=== PATIENT | male | born 1940 | race Caucasian/White ===

== ENCOUNTER 2018-07-26 10:30 | Inpatient (IN) | payer OTHER ==
--- OUTSIDE RECORDS SUMMARY | 2018-07-26 11:10 | XMS REPORT ---
:1940 [facility] Address [address] [place] [address] Dr. Armando[address] [place] [id number] Care Team Providers Name Role Phone DR JORGE LUIS MEHTA Unavailable Unavailable Problems This patient has no known problems. Allergies, Adverse Reactions, Alerts This patient has no known allergies or adverse reactions. Medications This patient has no known medications. Encounters Start End Encounter Admission Attending Care Care Encounter Date/Time Date/Time Type Type Clinicians Facility Department ID 2017-07-14 2017-07-14 Outpatient SERVANDO [facility]ARD [facility] [place] [id number] 10:47:00 10:47:00 JORGE LUIS
[2018-07-26 12:20] LABS: Absolute Lymphocytes (CBC) 0.9 K/uL (0.7-4.9); Absolute Monocytes 0.7 K/uL (0.1-1.3); Absolute Neutrophil 8.9 K/uL (1.8-8.0); Basophils % 0.4 % (0-1.3); Eosinophils % 2.4 % (0-4.4); Hematocrit 38.2 % (39.6-49.0); Lymphocytes % 8.2 % (15.3-44.8); MCH 32.2 pg (27.0-35.0); MCV 95.9 fL (80-100); MPV 8.2 fL (7.6-11.3); Monocytes % 6.7 % (3.3-12.3); RBC Red Blood Cell Count 3.98 M/uL (4.33-5.43)
[2018-07-26] MEDS: METRONIDAZOLE 500mg IVPB 500 MG/100 ML BAG IV SCH ×2 (12:35→21:20)
[2018-07-26] MEDS: CIPROFLOXACIN 400mg IV 400 MG/200 ML BAG IV SCH ×2 (12:35→21:21)
[2018-07-26] MEDS: NACHLORIDE 0.45% 1,000 ML IV SCH (12:36)
[2018-07-26 12:38] LABS: Albumin 3.6 g/dL (3.4-5.0); Bilirubin Total 0.8 mg/dL (0.2-1.0); Potassium 4.5 mmol/L (3.5-5.1); Protein, Total 6.7 g/dL (6.4-8.2)
--- NOTE | 2018-07-26 13:59 | RAD REPORT ---
EXAM DESCRIPTION: CT - Abdomen Pelvis Wo Contrast - 07/26/2018 1:48 pm CLINICAL HISTORY: Abdominal pain. abd pain, dehydration COMPARISON: No comparisons TECHNIQUE: CT imaging of the abdomen and pelvis was performed without contrast. Solid organ and vasc ular assessment is limited due to lack of IV contrast. All CT scans are performed using dose optimization technique as appropriate and may include automated exposure control or mA/KV adjustment according to patient size. FINDINGS: The lower lung cash are clear.Pacer wires are present. The liver, spleen, pancreas, adrenal glands and kidneys are within normal limits for a limited non-co ntrast examination.Cholelithiasis. No bowel obstruction, free air, free fluid or abscess. Sigmoid diverticulosis coli is present with mi ld peridiverticular inflammatory changes suspected. The remainder of the colon is decompressed. Moderate lumbar degenerative changes. IMPRESSION: Mild acute sigmoid diverticulitis is present without evidence of abscess. Cholelithiasis. A limited non-contrast examination was performed as detailed.
[2018-07-26] MEDS ORDERED: ALBUTEROL 2.5 MG/3 ML NEB SOL ONE (16:16)
[2018-07-26] MEDS ORDERED: NITROGLYCERIN 0.4 MG SL PRN (16:50)
[2018-07-26] MEDS ORDERED: NITROGLYCERIN 0.4 MG/TAB SL PRN (17:05)
[2018-07-26] MEDS: PANTOPRAZOLE 40MG TABLET PO SCH (17:43)
[2018-07-26] MEDS: ALLOPURINOL 100 MG TAB PO SCH (17:44)
[2018-07-26] MEDS: FUROSEMIDE 40 MG TABLET PO SCH (17:44)
[2018-07-26] MEDS: ATORVASTATIN 80 MG TAB PO SCH (17:46)
[2018-07-26 18:22] LABS: Urine Appearance CLEAR; Urine Bilirubin NEGATIVE (NEG); Urine Blood NEGATIVE (NEG); Urine Color YELLOW; Urine Glucose NEGATIVE (NEG); Urine Protein NEGATIVE (NEG); Urine Specific Gravity 1.015 (1.005-1.030); Urine Urobilinogen 0.2 mg/dL (0.2-1.0); Urine pH 5.5 (5.0-7.0)
[2018-07-26 18:31] LABS: Urine Microscopic Reflex NO UMIC
[2018-07-26] MEDS ORDERED: TERAZOSIN HCL 10 MG PO SCH (21:00)
[2018-07-26] MEDS: IPRATROPIUM BROM 0.5MG/2.5ML NEB PRN (21:02)
[2018-07-26] MEDS: ALBUTEROL 2.5 MG/3 ML NEB SOL NEB PRN (21:02)
[2018-07-26] MEDS: TERAZOSIN HCL 5 MG CAP PO SCH (21:32)
[2018-07-27] MEDS: ALBUTEROL 2.5 MG/3 ML NEB SOL NEB PRN ×3 (03:21→20:14)
[2018-07-27] MEDS: IPRATROPIUM BROM 0.5MG/2.5ML NEB PRN ×3 (03:21→20:14)
[2018-07-27] MEDS ORDERED: ALBUTEROL 2.5 MG/3 ML NEB SOL NEB SCH ×2 (08:00→09:00)
[2018-07-27] MEDS: METRONIDAZOLE 500mg IVPB 500 MG/100 ML BAG IV SCH ×2 (08:48→20:56)
[2018-07-27] MEDS: ATORVASTATIN 80 MG TAB PO SCH (08:49)
[2018-07-27] MEDS: METOPROLOL XL 50 MG TAB PO SCH (08:49)
[2018-07-27] MEDS: CIPROFLOXACIN 400mg IV 400 MG/200 ML BAG IV SCH ×2 (08:49→20:57)
[2018-07-27] MEDS: FUROSEMIDE 40 MG TABLET PO SCH (08:50)
[2018-07-27] MEDS: PANTOPRAZOLE 40MG TABLET PO SCH (08:50)
[2018-07-27] MEDS: ALLOPURINOL 100 MG TAB PO SCH (08:52)
[2018-07-27] MEDS ORDERED: HOME MED 1 EA UNK (Omeprazole [Omeprazole] 20 MG) PO SCH (09:00)
[2018-07-27] MEDS ORDERED: HOME MED 1 EA UNK (Fluticasone/Vilanterol [Breo Ellipta 100-25 Mcg Inh] 1 EACH) IH SCH (09:00)
[2018-07-27] MEDS ORDERED: VITAMIN D 1000 UNIT TAB PO SCH (09:00)
[2018-07-27 14:38] VITALS: BMI 29.5
[2018-07-27] MEDS: NACHLORIDE 0.45% 1,000 ML IV SCH (17:08)
[2018-07-27] MEDS: TERAZOSIN HCL 5 MG CAP PO SCH (20:57)
[2018-07-27 22:46] VITALS: O2SAT 97
--- NOTE | 2018-07-27 23:12 | HP ---
Date of Admission: 07/27/2018 Chief Complaint: Lower abdominal pain, diarrhea. History Of Present Illness: An 78-year-old male was brought to the office with a 4-5-day history of lower abdominal pain and diarrhea. The patient was found to have tenderness in the left lower quadra nt with a possibility of colitis or diverticulitis. The patient was admitted for observation. Subse quently, CAT scan showed evidence of diverticulitis. The patient is started on IV antibiotics. Past Medical History: Extensive, includes history of congestive heart failure, COPD, permanent pacem vineet, coronary artery disease, and BPH. Past Surgical History: Positive for carotid bypass surgery, appendectomy, tonsillectomy, left elbow surgery, colonoscopy, and removal of polyps. Family History: Positive for lung disease, aortic aneurysm. Review of Systems: The patient denies any history of vomiting. Physical Examination: General: Revealed an 78-year-old male with audible wheezing. Vital Signs: Blood pressure in the office was 90, systolic. HEENT: Otherwise negative. Neck: Supple. JVD negative. Chest: Bilateral wheezes. Heart: Irregularity noted. Abdomen: Tender left lower quadrant. No palpable mass. Bowel sounds present. Extremities: No edema. Laboratory Data: White count, normal. Hemoglobin 12.8. Chem profile; BUN 40, creatinine 2.2. CAT scan of the abdomen, diverticulitis, sigmoid. Assessment: 1.Acute diverticulitis, sigmoid colon, with diarrhea. 2.Chronic obstructive pulmonary disease. 3.Known coronary artery disease. 4.Known congestive heart failure. 5.Permanent pacemaker. 6.Status post coronary bypass surgery. Plan: IV Cipro, IV Flagyl. Repeat chemistry profile. RRK/MODL Voice ID: [id number]
[2018-07-28] MEDS: ALBUTEROL 2.5 MG/3 ML NEB SOL NEB PRN ×2 (01:44→08:05)
[2018-07-28] MEDS: IPRATROPIUM BROM 0.5MG/2.5ML NEB PRN (08:05)
[2018-07-28] MEDS: ATORVASTATIN 80 MG TAB PO SCH (08:38)
[2018-07-28] MEDS: METOPROLOL XL 50 MG TAB PO SCH (08:38)
[2018-07-28] MEDS: ALLOPURINOL 100 MG TAB PO SCH (08:38)
[2018-07-28] MEDS: FUROSEMIDE 40 MG TABLET PO SCH (08:39)
[2018-07-28] MEDS: CIPROFLOXACIN 400mg IV 400 MG/200 ML BAG IV SCH (08:40)
[2018-07-28] MEDS: METRONIDAZOLE 500mg IVPB 500 MG/100 ML BAG IV SCH (08:40)
[2018-07-28] MEDS: PANTOPRAZOLE 40MG TABLET PO SCH (08:40)
[2018-07-28 08:42] VITALS: BP 107/55
[2018-07-28 09:07] VITALS: TEMP 97.6
== END 2018-07-28 10:16 | disposition home or self-care (01) | DRG 392 ==
LOC: 2ND 11:07 → OBSVTOIN 07-27 10:22
PROVIDERS: ADMIT Internal Medicine; ATTEND Internal Medicine
DX: K57.32 Diverticulitis of large intestine without perforation or abscess without bleeding (principal); I25.810 Atherosclerosis of coronary artery bypass graft(s) without angina pectoris; J44.9 Chronic obstructive pulmonary disease, unspecified; Z95.0 Presence of cardiac pacemaker; N40.0 Benign prostatic hyperplasia without lower urinary tract symptoms; R19.7 Diarrhea, unspecified; I50.9 Heart failure, unspecified; Z95.1 Presence of aortocoronary bypass graft
CPT/HCPCS: 36415; 74176; 80053; 81003; 85025; 87045; 87046; 87493; 94640; G0378; J0744; Q9967

== ENCOUNTER 2019-01-21 17:58 | Observation (INO) | payer OTHER ==
--- OUTSIDE RECORDS SUMMARY | 2019-01-21 18:00 | XMS REPORT ---
:1940 [facility] Address [address] [place] [address] [address] Care Team Providers Name Role Phone DR JORGE LUIS MEHTA Unavailable Unavailable Problems This patient has no known problems. Allergies, Adverse Reactions, Alerts This patient has no known allergies or adverse reactions. Medications This patient has no known medications. Encounters Start End Encounter Admission Attending Care Care Encounter Date/Time Date/Time Type Type Clinicians Facility Department ID 2017-07-14 2017-07-14 Outpatient [facility]ANDO [facility] [place] [id number] 10:47:00 10:47:00 JORGE LUIS
[2019-01-21 18:34] LABS: Absolute Lymphocytes (CBC) 1.3 K/uL (0.7-4.9); Absolute Monocytes 0.5 K/uL (0.1-1.3); Absolute Neutrophil 5.5 K/uL (1.8-8.0); Basophils % 0.6 % (0-1.3); Eosinophils % 3.6 % (0-4.4); Hematocrit 37.9 % (39.6-49.0); Lymphocytes % 17.1 % (15.3-44.8); MPV 8.4 fL (7.6-11.3); Monocytes % 6.2 % (3.3-12.3); RBC Red Blood Cell Count 3.96 M/uL (4.33-5.43)
--- NOTE | 2019-01-21 18:47 | RAD REPORT ---
EXAM DESCRIPTION: Evans Single View01/21/2019 6:26 pm CLINICAL HISTORY: Chest pain COMPARISON: 2016 FINDINGS: The lungs appear clear of acute infiltrate. The heart is mildly enlarged. Pacemaker leads are in place. Postsurgical changes involve the chest IMPRESSION: No acute abnormalities displayed
[2019-01-21 18:48] LABS: Albumin 3.5 g/dL (3.4-5.0); Bilirubin Direct 0.1 mg/dL (0-0.2); Bilirubin Total 0.4 mg/dL (0.2-1.0); Magnesium 2.2 mg/dL (1.8-2.4); Potassium 3.8 mmol/L (3.5-5.1); Protein, Total 6.2 g/dL (6.4-8.2); Troponin (Emerg Dept Use Only) 0.02 ng/mL (0.0-0.045)
--- NOTE | 2019-01-21 18:56 | RAD REPORT ---
EXAM DESCRIPTION: CT - Head Brain Wo Cont - 01/21/2019 6:29 pm CLINICAL HISTORY: Syncope COMPARISON: 2013 TECHNIQUE: Computed axial tomography of the head was obtained. IV contrast was not requested. All CT scans are performed using dose optimization technique as appropriate and may include automated exposure control or mA/KV adjustment according to patient size. FINDINGS: An intracranial bleed is not seen . The ventricles are normal in caliber. No extra-axial fluid collection is noted. Mild low-density areas within periventricular, deep and sub cortical white matter likely represent ischemic changes secondary to small vessel disease Fluid within the maxillary sinuses IMPRESSION: No acute intracranial abnormality is seen. If patient's symptoms persist MRI of the bra in would be recommended. Fluid within the maxillary sinuses may indicate acute sinusitis
[2019-01-21] MEDS ORDERED: NA CHLORIDE 0.9% 1,000 ML ONE (19:24)
[2019-01-21] MEDS ORDERED: HYDROCODONE/CHLORPHEN 5 ML/OSYR ONE (19:31)
[2019-01-21] MEDS ORDERED: ALBUTEROL 2.5 MG/3 ML NEB SOL ONE ×2 (22:05→23:19)
--- NOTE | 2019-01-21 23:03 | EDPHYS ---
Physician Documentation [facility] Name: Jair Jasso Age: 78 yrs Sex: Male : 1940 Arrival Date: 01/21/2019 Time: 18:03 Bed 2 Private MD: ED Physician Julian Wasserman HPI: 01/21 23:15 This 78 yrs old Male presents to ER via EMS with complaints of syncope. jr8 23:15 The patient has experienced syncope, became unresponsive, collapsed. Onset: The jr8 symptoms/episode began/occurred acutely, today. Duration: This was a single episode, that lasted an unknown period of time. Context: occurred at home, occurred while the patient was standing, Just prior to the episode the patient experienced no apparent symptoms. Associated injury: Head/face: abrasion. Associated signs and symptoms: The patient has no apparent associated signs or symptoms. Current symptoms: Currently, the patient is not experiencing any symptoms, the patient feels back to baseline, no decreased level of consciousness, no confusion, no dysphasia, no headache, no paralysis, no visual changes. It is unknown whether or not the patient has had similar symptoms in the past. The patient has not recently seen a physician. EMS stated that patient was hypotensive on scene. Patient currently hypotensive upon arrival. Stated that he has had problems with neurocardiogenic syncope in past . Historical: - Allergies: 18:15 PENICILLINS; aj1 - Home Meds: 18:15 Allopurinol Oral [Active]; Lasix Oral [Active]; losartan oral oral [Active]; aj1 - PMHx: 18:15 AAA; CAD; CHF; COPD; High Cholesterol; Myocardial infarction; pacemaker; aj1 - PSHx: 18:15 AAA repair; triple bypass; aj1 - Immunization history:: Flu vaccine is up to date. - Social history:: Smoking status: Patient/guardian denies using tobacco. - Ebola Screening: : Patient denies travel to an Ebola-affected area in the 21 days before illness onset. ROS: 23:15 Eyes: Negative for injury, pain, redness, and discharge, ENT: Negative for injury, jr8 pain, and discharge, Neck: Negative for injury, pain, and swelling, Cardiovascular: Negative for chest pain, palpitations, and edema, Respiratory: Negative for shortness of breath, cough, wheezing, and pleuritic chest pain, Abdomen/GI: Negative for abdominal pain, nausea, vomiting, diarrhea, and constipation, Back: Negative for injury and pain, MS/Extremity: Negative for injury and deformity, Skin: Negative for injury, rash, and discoloration. 23:15 Neuro: Positive for loss of consciousness, syncope. Exam: 23:15 Eyes: Pupils equal round and reactive to light, extra-ocular motions intact. Lids and jr8 lashes normal. Conjunctiva and sclera are non-icteric and not injected. Cornea within normal limits. Periorbital areas with no swelling, redness, or edema. ENT: Nares patent. No nasal discharge, no septal abnormalities noted. Tympanic membranes are normal and external auditory canals are clear. Oropharynx with no redness, swelling, or masses, exudates, or evidence of obstruction, uvula midline. Mucous membranes moist. Neck: Trachea midline, no thyromegaly or masses palpated, and no cervical lymphadenopathy. Supple, full range of motion without nuchal rigidity, or vertebral point tenderness. No Meningismus. Cardiovascular: Regular rate and rhythm with a normal S1 and S2. No gallops, murmurs, or rubs. Normal PMI, no JVD. No pulse deficits. Respiratory: Lungs have equal breath sounds bilaterally, clear to auscultation and percussion. No rales, rhonchi or wheezes noted. No increased work of breathing, no retractions or nasal flaring. Abdomen/GI: Soft, non-tender, with normal bowel sounds. No distension or tympany. No guarding or rebound. No evidence of tenderness throughout. Back: No spinal tenderness. No costovertebral tenderness. Full range of motion. Skin: Warm, dry with normal turgor. Normal color with no rashes, no lesions, and no evidence of cellulitis. MS/ Extremity: Pulses equal, no cyanosis. Neurovascular intact. Full, normal range of motion. Neuro: Awake and alert, GCS 15, oriented to person, place, time, and situation. Cranial nerves II-XII grossly intact. Motor strength 5/5 in all extremities. Sensory grossly intact. Vital Signs: 18:15 BP 108 / 56; Pulse 65; Resp 16; Temp 97.4; Pulse Ox 98% on R/A; Weight 89.81 kg (R); aj1 Height 5 ft. 8 in. (172.72 cm) (R); Pain 0/10; 18:51 BP 104 / 58 Supine; Pulse 60; jb1 18:51 BP 98 / 51 Sitting; Pulse 73; jb1 18:51 BP 87 / 55 Standing; Pulse 110; jb1 19:40 BP 110 / 54; Pulse 90; Resp 16; Pulse Ox 97% on 2 lpm NC; Pain 0/10; tl1 20:59 BP 85 / 36; Pulse 68; Resp 16; Pulse Ox 97% on 2 lpm NC; Pain 0/10; tl1 21:50 BP 91 / 55; Pulse 73; Resp 19; Pulse Ox 97% on 2 lpm NC; Pain 0/10; tl1 22:03 BP 110 / 61; Pulse 71; Resp 19; Temp 97.6; Pulse Ox 100% on Nebulizer Mask; Pain 0/10; tl1 22:28 BP 95 / 58 Standing; Pulse 116; Resp 17; Pulse Ox 94% on R/A; tl1 23:50 BP 118 / 70; Pulse 72; Resp 20; Temp 97.5; Pulse Ox 96% on R/A; Pain 0/10; tl1 18:15 Body Mass Index 30.11 (89.81 kg, 172.72 cm) aj1 MDM: 18:16 Patient medically screened. 8 22:53 Data reviewed: vital signs, nurses notes, lab test result(s), EKG, radiologic studies, jr8 CT scan, plain films. Data interpreted: Pulse oximetry: on room air is 94 %. Interpretation: normal. Counseling: I had a detailed discussion with the patient and/or guardian regarding: the historical points, exam findings, and any diagnostic results supporting the discharge/admit diagnosis, lab results, radiology results, the need for further work-up and treatment in the hospital. Physician consultation: Faisal Johnson MD was called at 22:53, was contacted at 22:53, regarding admission, to the telemetry unit. consult, patient's condition, and will see patient. 23:15 ED course: Patient given 1 liter bolus of fluid. Patient still tilting after bolus will jr8 admit to Dr[address] Johnson with [facility] consult . 01/21 18:16 Order name: Basic Metabolic Panel 8 01/21 18:16 Order name: CBC with Diff jr8 01/21 18:16 Order name: LFT's [facility] 01/21 18:16 Order name: Magnesium [facility] 01/21 18:16 Order name: NT PRO-BNP; Complete Time: 19:15 8 01/21 18:16 Order name: PT-INR; Complete Time: 19:15 8 01/21 18:16 Order name: Troponin (emerg Dept Use Only); Complete Time: 19:15 8 01/21 18:16 Order name: XRAY Chest (1 view); Complete Time: 19:15 8 01/21 18:17 Order name: CT Head Brain wo Cont; Complete Time: 19:15 jr8 01/21 18:17 Order name: Basic Metabolic Panel; Complete Time: 19:15 EDMS 01/21 18:17 Order name: CBC with Automated Diff; Complete Time: 18:37 EDMS 01/21 18:17 Order name: Liver (Hepatic) Function; Complete Time: 19:15 EDMS 01/21 18:17 Order name: Magnesium; Complete Time: 19:15 EDMS 01/21 18:16 Order name: EKG; Complete Time: 18:18 01/21 18:16 Order name: Cardiac monitoring; Complete Time: 18:24 [facility] 01/21 18:16 Order name: EKG - Nurse/Tech; Complete Time: 18:24 [facility] 01/21 18:16 Order name: IV Saline Lock; Complete Time: 18:24 [facility] 01/21 18:16 Order name: Labs collected and sent; Complete Time: 18:24 [facility] 01/21 18:16 Order name: O2 Per Protocol; Complete Time: 18:25 [facility] 01/21 18:16 Order name: O2 Sat Monitoring; Complete Time: 18:25 [facility] 01/21 23:28 Order name: CONS Physician Consult EDMS Administered Medications: 19:17 Drug: NS 0.9% 1000 ml Route: IV; Rate: 1000 ml; Site: right antecubital; tl1 21:49 Follow up: IV Status: Completed infusion tl1 19:21 Drug: Tussionex Pennkinetic ER 5 ml Route: PO; tl1 21:55 Follow up: Response: No adverse reaction; Marked relief of symptoms; Other; cough is tl1 reduced 21:55 Drug: Albuterol 1.25 mg Route: Inhalation; tl1 23:10 Drug: guaiFENesin Liquid 5 ml Route: PO; tl1 01/22 00:28 Follow up: Response: No adverse reaction; Marked relief of symptoms tl1 01/21 23:10 Drug: Albuterol 1.25 mg Route: Inhalation; tl1 01/22 00:28 Follow up: Response: No adverse reaction; Marked relief of symptoms tl1 Disposition: 01/21/19 23:02 Hospitalization ordered by Faisal Johnson for Observation. Preliminary diagnosis is Orthostatic hypotension. - Bed requested for Telemetry/MedSurg (observation). - Status is Observation. tl1 - Condition is Stable. - Problem is new. - Symptoms have improved. UTI on Admission? No Addendum: 01/24/2019 08:25 Co-signature as Attending Physician, Julian Wasserman MD I agree with the assessment and k dr plan of care. Signatures: Dispatcher [employer] EDMS [place] Rehman RN RN aj1 Amy Judge RN ARCHANA Julian Wasserman MD MD [facility] Cordell Segal PA PA jr8 Viji Fernandez RN RN tl1 Corrections: (The following items were deleted from the chart) 01/21 23:31 23:02 Hospitalization Ordered by Faisal Johnson MD for Observation. Preliminary diagnosis mw is Orthostatic hypotension. Bed requested for Telemetry/MedSurg (observation). Status is Observation. Condition is Stable. Problem is new. Symptoms have improved. UTI on Admission? No. jr8 01/22 00:29 01/21 23:31 01/21/2019 23:02 Hospitalization Ordered by Faisal Johnson MD for Observation. tl1 Preliminary diagnosis is Orthostatic hypotension. Bed requested for Telemetry/MedSurg (observation). Status is Observation. Condition is Stable. Problem is new. Symptoms have improved. UTI on Admission? No. mw
--- NOTE | 2019-01-21 23:03 | ER ---
Nurse's Notes [facility] Name: Jair Jasso Age: 78 yrs Sex: Male : 1940 Arrival Date: 01/21/2019 Time: 18:03 Bed 2 Private MD: Diagnosis: Orthostatic hypotension Presentation: 01/21 18:11 Presenting complaint: EMS states: He was sitting on the couch after having a couple aj1 martinis and had some dizziness so he got up to walk to his room and he had a syncopal episode. Patient denies SOB, CP or palpitations prior to syncopal episode. BP on EMS arrival was 71/40. Patient has a laceration to the left eyebrow and a skin tear to the left FA that he sustained in the fall. Patient denies pain at this time. Transition of care: patient was not received from another setting of care. Onset of symptoms was January 21, 2019. Risk Assessment: Do you want to hurt yourself or someone else? Patient reports no desire to harm self or others. Initial Sepsis Screen: Does the patient meet any 2 criteria? No. Patient's initial sepsis screen is negative. Does the patient have a suspected source of infection? No. Patient's initial sepsis screen is negative. Care prior to arrival: None. 18:11 Method Of Arrival: EMS: [facility] aj1 18:11 Acuity: SILVIA 2 aj1 Triage Assessment: 18:15 General: Appears in no apparent distress. comfortable, Behavior is calm, cooperative, aj1 appropriate for age. Pain: Denies pain. Historical: - Allergies: 18:15 PENICILLINS; aj1 - Home Meds: 18:15 Allopurinol Oral [Active]; Lasix Oral [Active]; losartan oral oral [Active]; aj1 - PMHx: 18:15 AAA; CAD; CHF; COPD; High Cholesterol; Myocardial infarction; pacemaker; aj1 - PSHx: 18:15 AAA repair; triple bypass; aj1 - Immunization history:: Flu vaccine is up to date. - Social history:: Smoking status: Patient/guardian denies using tobacco. - Ebola Screening: : Patient denies travel to an Ebola-affected area in the 21 days before illness onset. Screenin:20 Abuse screen: Denies threats or abuse. Denies injuries from another. Nutritional aj1 screening: No deficits noted. Tuberculosis screening: No symptoms or risk factors identified. 01/22 00:24 Fall Risk IV access (20 points). tl1 Assessment: 01/21 18:20 General: Appears in no apparent distress. uncomfortable, ill, Behavior is calm, aj1 cooperative, appropriate for age. Pain: Denies pain. Neuro: Level of Consciousness is awake, alert, obeys commands, Oriented to person, place, time, situation, Moves all extremities. Speech is normal, Facial symmetry appears normal. Cardiovascular: Denies chest pain, palpitations, shortness of breath, Heart tones S1 S2 present Patient's skin is warm and dry. Rhythm is paced. Respiratory: Airway is patent Respiratory effort is even, unlabored, Respiratory pattern is regular, agonal Breath sounds are clear bilaterally. GI: No signs and/or symptoms were reported involving the gastrointestinal system. : No signs and/or symptoms were reported regarding the genitourinary system. EENT: No signs and/or symptoms were reported regarding the EENT system. Derm: No signs and/or symptoms reported regarding the dermatologic system. Skin is pink, warm \T\ dry. normal. Musculoskeletal: No signs and/or symptoms reported regarding the musculoskeletal system. Circulation, motion, and sensation intact. 01/22 00:28 Reassessment: Patient and/or family updated on plan of care and expected duration. Pain tl1 level reassessed. Patient is alert, oriented x 3, equal unlabored respirations, skin warm/dry/pink. Patient denies pain at this time. Patient states feeling better. Patient states symptoms have improved. Vital Signs: 01/21 18:15 BP 108 / 56; Pulse 65; Resp 16; Temp 97.4; Pulse Ox 98% on R/A; Weight 89.81 kg (R); aj1 Height 5 ft. 8 in. (172.72 cm) (R); Pain 0/10; 18:51 BP 104 / 58 Supine; Pulse 60; jb1 18:51 BP 98 / 51 Sitting; Pulse 73; jb1 18:51 BP 87 / 55 Standing; Pulse 110; jb1 19:40 BP 110 / 54; Pulse 90; Resp 16; Pulse Ox 97% on 2 lpm NC; Pain 0/10; tl1 20:59 BP 85 / 36; Pulse 68; Resp 16; Pulse Ox 97% on 2 lpm NC; Pain 0/10; tl1 21:50 BP 91 / 55; Pulse 73; Resp 19; Pulse Ox 97% on 2 lpm NC; Pain 0/10; tl1 22:03 BP 110 / 61; Pulse 71; Resp 19; Temp 97.6; Pulse Ox 100% on Nebulizer Mask; Pain 0/10; tl1 22:28 BP 95 / 58 Standing; Pulse 116; Resp 17; Pulse Ox 94% on R/A; tl1 23:50 BP 118 / 70; Pulse 72; Resp 20; Temp 97.5; Pulse Ox 96% on R/A; Pain 0/10; tl1 18:15 Body Mass Index 30.11 (89.81 kg, 172.72 cm) aj1 ED Course: 18:03 Patient arrived in ED. iw 18:11 [place] Rehman, RN is Primary Nurse. aj1 18:13 Triage completed. aj1 18:15 Arm band placed on. aj1 18:16 Cordell Segal PA is PHCP. jr8 18:16 Julian Wasserman MD is Attending Physician. jr8 18:20 Patient has correct armband on for positive identification. Bed in low position. Call aj1 light in reach. Side rails up X 1. laboratory monitor on. Pulse ox on. NIBP on. 18:20 No provider procedures requiring assistance completed. Maintain EMS IV. Dressing aj1 intact. Good blood return noted. Site clean \T\ dry. Gauge \T\ site: 20g right AC. 18:26 XRAY Chest (1 view) In Process Unspecified. EDMS 18:28 CT Head Brain wo Cont In Process Unspecified. EDMS 21:22 No apparent distress. Resting quietly. Appears to be sleeping. tl1 22:28 Wound care: was cleaned with Hibiclens, dressed with 4X4s, Vaseline gauze, halima wrap. tl1 23:02 Faisal Johnson MD is Hospitalizing Provider. jr8 04 00:23 Patient admitted, IV remains in place. tl1 Administered Medications: 01/21 19:17 Drug: NS 0.9% 1000 ml Route: IV; Rate: 1000 ml; Site: right antecubital; tl1 21:49 Follow up: IV Status: Completed infusion tl1 19:21 Drug: Tussionex Pennkinetic ER 5 ml Route: PO; tl1 21:55 Follow up: Response: No adverse reaction; Marked relief of symptoms; Other; cough is tl1 reduced 21:55 Drug: Albuterol 1.25 mg Route: Inhalation; tl1 23:10 Drug: guaiFENesin Liquid 5 ml Route: PO; tl1 01/22 00:28 Follow up: Response: No adverse reaction; Marked relief of symptoms tl1 01/21 23:10 Drug: Albuterol 1.25 mg Route: Inhalation; tl1 01/22 00:28 Follow up: Response: No adverse reaction; Marked relief of symptoms tl1 Outcome: 01/21 23:02 Decision to Hospitalize by Provider. jr8 01/22 00:23 Admitted to Tele accompanied by tech, via stretcher, with chart, Report called to [email or web address] Anaid MAGAÑA Condition: stable Instructed on the need for admit. 00:29 Patient left the ED. tl1 Signatures: Dispatcher [employer] Aba Eid jb1 [place] Rehman RN RN aj1 Jasmin Garrett RN RN iw Roszak, Josh, PA PA jr8 Viji Fernandez RN RN tl1
[2019-01-21] MEDS ORDERED: guaiFENesin 100 MG/5 ML UCUP ONE (23:18)
[2019-01-22 00:55] VITALS: BMI 29.8
[2019-01-22] MEDS ORDERED: ONDANSETRON 4 MG/2 ML VIAL IV PRN (01:35)
[2019-01-22] MEDS ORDERED: ALBUTEROL 2.5 MG/3 ML NEB SOL NEB PRN (01:35)
[2019-01-22] MEDS ORDERED: NA CHLORIDE 0.9% 1,000 ML IV SCH (01:35)
[2019-01-22] MEDS: ALBUTEROL 2.5 MG/3 ML NEB SOL NEB SCH ×4 (02:00→11:20)
[2019-01-22 06:18] LABS: Absolute Lymphocytes (CBC) 1.5 K/uL (0.7-4.9); Absolute Monocytes 0.6 K/uL (0.1-1.3); Absolute Neutrophil 5.1 K/uL (1.8-8.0); Basophils % 0.5 % (0-1.3); Eosinophils % 4.7 % (0-4.4); Lymphocytes % 20.1 % (15.3-44.8); MPV 8.6 fL (7.6-11.3); Monocytes % 7.5 % (3.3-12.3); RBC Red Blood Cell Count 3.74 M/uL (4.33-5.43)
[2019-01-22 06:24] LABS: Urine Appearance CLEAR; Urine Bilirubin NEGATIVE (NEG); Urine Blood NEGATIVE (NEG); Urine Color YELLOW; Urine Glucose NEGATIVE (NEG); Urine Protein NEGATIVE (NEG); Urine Specific Gravity 1.015 (1.005-1.030); Urine Urobilinogen 0.2 mg/dL (0.2-1.0)
[2019-01-22 06:25] LABS: Potassium 4.1 mmol/L (3.5-5.1)
[2019-01-22 06:40] LABS: Urine Microscopic Reflex NO UMIC
[2019-01-22] MEDS ORDERED: HOME MED 1 EA UNK (Omeprazole [Omeprazole] 20 MG) PO SCH (09:00)
[2019-01-22] MEDS ORDERED: GUAIFENESIN 600 MG SA TAB PO SCH ×2 (09:00)
[2019-01-22] MEDS ORDERED: HOME MED 1 EA UNK (Fluticasone/Vilanterol [Breo Ellipta 100-25 Mcg Inh] 1 EACH) IH SCH (09:00)
[2019-01-22] MEDS ORDERED: ATORVASTATIN 80 MG TAB PO SCH (09:00)
[2019-01-22] MEDS ORDERED: ALLOPURINOL 100 MG TAB PO SCH (09:00)
--- NOTE | 2019-01-22 09:44 | EKG ---
Test Date: 2019-01-21 Test Time: 18:05:26 Medical Receptionist: JASON MEASUREMENT RESULTS: Intervals: Rate: 70 [place]: QRSD: 162 QT: 506 QTc: 546 [place]: P: [place]: QRS: -25 T: -76 INTERPRETIVE STATEMENTS: Suspect unspecified pacemaker failure Ventricular-paced rhythm Abnormal ECG Compared to ECG 11/15/2013 00:01:22 Atrial-sensed ventricular-paced complex(es) or rhythm no longer present Electronically Signed On 01-22-19 09:42:55 CDT by Nick Herbert
[2019-01-22 11:33] VITALS: O2SAT 97
[2019-01-22 12:33] VITALS: BP 120/64; TEMP 98
[2019-01-23] MEDS ORDERED: PANTOPRAZOLE 40MG TABLET PO SCH (06:30)
--- NOTE | 2019-01-23 09:45 | HP ---
Date of Admission: 01/21/2019 Chief Complaint: Dizziness, syncope. History Of Present Illness: An 78-year-old male, who was brought to the emergency room with history of dizziness and syncope. He had workup done. He was found to have orthostatic hypotension. Patien vivian was admitted for observation. Patient did not have any chest pain, seizures, or other neurological symptoms. Past Medical History: Extensive, includes history of congestive heart failure, coronary artery disea se, gout, permanent pacemaker. Past Surgical History: Positive for aortic aneurysm repair and triple bypass surgery. Family History: Hypertension present. Personal History: Nonsmoker. Allergies: PENICILLIN. Home Medicines: Please refer to the chart. Review of Systems: Patient denied any history of seizures, fever, chills, rigors. Physical Examination: General: Revealed an 78-year-old male, alert at the time of exam. HEENT: Negative. Vital Signs: Blood pressure 100/70. Neck: Supple. JVD negative. Chest: Few scattered wheeze bilaterally. Heart: Irregularity noted. Abdomen: Soft. Extremities: No edema. Laboratory: At the time of admission to emergency room; white count 7.6, hemoglobin 12.4. Chem prof ile; BUN 41, creatinine 1.87. BNP 2250. Chest x-ray done in the emergency room, normal. CAT scan of the head done in the emergency room show ed no evidence of acute stroke. Assessment: 1.Postural hypotension, dizziness, and syncope. 2.Congestive heart failure. 3.Coronary artery disease. 4.Permanent pacemaker. 5.Gout. 6.Chronic obstructive pulmonary disease. Plan: Patient received IV fluids and by morning, he was not feeling dizzy anymore. In view of his s yncope and dizziness, patient was taken off Hytrin, and he was discharged and to have followup in the office. MONICA/JAMES Voice ID: [id number]
--- NOTE | 2019-01-23 23:21 | CON ---
Date of Consultation: 01/22/2019 Reason For Consultation: Syncope. History Of Present Illness: Mr. Jasso is 78 years old. I have seen him in the past. He has had a complex medical history in the past. He has an abdominal aortic aneurysm status post repair. He savage s a history of CAD status post CABG. Has had congestive heart failure which is chronic systolic. He has a history of gout, dyslipidemia, COPD and history of pacemaker. He came in with a sudden syncop al episode, was found to have a blood pressure of 87/55 when he came into the emergency room. His cr eatinine level was 1.87. He had a BNP of 2250. Denied any chest pain. Denied any nausea, vomiting, diaphoresis, PND, orthopnea, pedal edema, or palpitations prior to the episode. Allergies: INCLUDE PENICILLIN. Review of Systems: Negative. Social History: Negative. Family History: Noncontributory. Medications: At home include Entresto, terazosin, Lasix, Toprol, Lipitor, allopurinol and Breo inhal er. Physical Examination: General: Mr. Jasso was alert, oriented x3. He was pleasant. No acute distress. Vital signs: Stable, afebrile. No symptoms today. HEENT: Exam was negative. Neck: Supple without any bruit, lymphadenopathy, JVD, or thyromegaly. Chest: Clear to auscultation and percussion. Cardiac: Exam revealed a regular rhythm and rate with a tricuspid regurgitation murmur. No aortic s tenosis murmur. No gallops or rubs. Abdomen: Benign. Extremities: Revealed no clubbing, cyanosis, or edema. Neurological: He was nonfocal. Skin: Dry and intact. Vascular: Pulses were present in the dorsalis pedis bilaterally. Diagnostic Data: That is available was listed earlier. I would like to add that he had a heart cath eterization in October of 2017 showing a patent MESA to the LAD with collaterals from the LAD to the OM and the PDA. All his round valley vessels were occluded and his graft to the PDA and OM were occluded a s well. Impression And Plan: Syncope secondary to orthostatic hypotension secondary to polypharmacy. For no w, I would start by stopping the terazosin. We can certainly decrease his Toprol later if we have to . His Entresto dose is a minimal dose. He just started that not long ago, but I certainly would not want to change the dose for now. I would continue the Lasix, Lipitor, allopurinol, and Breo as befo re. Mr. Jasso does have a pacemaker and during his last check they told him that it may need to be wood ged and I would make sure that we recheck that soon. I would like to see him in the office in the dc xt week or two after he goes home. We will schedule an echocardiogram and a pacemaker check then. H is other problems including abdominal aortic aneurysm, coronary artery disease status post coronary a rtery bypass graft, congestive heart failure, gout, dyslipidemia, and chronic obstructive pulmonary d isease seem to be stable at this point. The case was discussed with Dr. Johnson. MARIAH/JAMES Voice ID: [id number] Report ID: [id number]
== END 2019-01-22 13:48 | disposition home or self-care (01) ==
LOC: ER 17:58 → ERHOLD 23:40 → 4TH 01-22 00:22
PROVIDERS: ADMIT Internal Medicine; ATTEND Internal Medicine
DX: I95.1 Orthostatic hypotension (principal); I50.9 Heart failure, unspecified; I25.10 Atherosclerotic heart disease of native coronary artery without angina pectoris; M10.9 Gout, unspecified; J44.9 Chronic obstructive pulmonary disease, unspecified; R42 Dizziness and giddiness; R55 Syncope and collapse; E78.5 Hyperlipidemia, unspecified; Z88.0 Allergy status to penicillin; Z95.0 Presence of cardiac pacemaker; Z95.1 Presence of aortocoronary bypass graft
CPT/HCPCS: 96361; 93005; 85025 ×2; 80048 ×2; 36415; 83735; 85610; 80076; 81003; 84484; 83880; 70450; 71045; 96360; 99285; J7030 ×2; G0378 ×2; J2405

== ENCOUNTER 2020-07-25 13:01 | Emergency (ER) | payer OTHER ==
--- OUTSIDE RECORDS SUMMARY | 2020-07-25 13:17 | XMS REPORT | Summary of Care ---
:[address] [facility] - [facility] Address [address] [place] [id number] Care Team Providers Name Role Phone Armando Pearl Primary Care Provider Reason for Visit Reason Comments New Patient BPH Encounter Details Date Type Department Care Team Description 07/05/2020 Office Visit [facility] Urology- Siria Villeda MD Benign prostatic [place] hyperplasia, [address] [place], [place] [address] lower urinary tract [address] symptoms present [place], [place] (Primary Dx) [address] Allergies Active Allergy Reactions Severity Noted Date Comments Penicillin Hives 06/28/2015 documented as of this encounter (statuses as of 07/05/2020) Medications Medication Sig Dispensed Refills Start Date End Date Status acetaminophen-codeine 0 05/11/2015 Active (TYLENOL #3) 300-30 mg tablet allopurinol (ZYLOPRIM) Take 100 mg by 1 06/14/2015 Active 100 mg tablet mouth 2 (two) times daily. colchicine (COLCRYS) Take 0.6 mg by 1 06/14/2015 Active 0.6 mg tablet mouth daily. furosemide (LASIX) 20 Take 40 mg by 1 06/15/2015 Active mg tablet mouth daily. lovastatin (MEVACOR) Take 20 mg by 2 05/26/2015 Active 20 mg tablet mouth at bedtime. polyethylene glycol Take 17 g by mouth 5 06/07/2015 Active (GLYCOLAX) 17 daily. gram/dose powder ranitidine (ZANTAC) Take 150 mg by 3 04/09/2015 Active 150 mg tablet mouth 2 (two) times daily. terazosin (HYTRIN) 10 Take 10 mg by 2 05/12/2015 Active mg capsule mouth at bedtime. HYDROcodone-acetaminop Take 1 Tab by 0 Active hen (NORCO 5) 5-325 mg mouth 2 (two) tablet times daily. meloxicam (MOBIC) 7.5 Take 7.5 mg by 0 Active mg tablet mouth daily. metoprolol succinate TK 1 T PO QD 6 03/08/2016 Active XL (TOPROL XL) 50 mg 24 hr tablet ALBUTEROL INHALE Inhale. 0 Act sergio omega-3 fatty Take 1 g by mouth 0 Active acids-vitamin E (FISH daily. OIL) 1,000 mg capsule CALCIUM PHOSPHATE Take by mouth. 0 Active DIBAS/VIT D3 (VITAMIN D, WITH CALCIUM, ORAL) NITROGLYCERIN Place under the 0 Active (NITROQUICK SL) tongue. BREO ELLIPTA 200-25 USE 1 INHALATION 3 09/24/2016 Active mcg/dose DsDv PO QD DICLOFENAC 75 mg EC TAKE 1 TABLET BY 60 tablet 0 12/24/2016 Active tablet MOUTH TWICE DAILY WITH MEALS DICLOFENAC 75 mg EC TAKE 1 TABLET BY 60 tablet 0 12/25/2016 Active tablet MOUTH TWICE DAILY WITH MEALS DICLOFENAC 75 mg EC TAKE 1 TABLET BY 60 tablet 0 01/20/2017 Active tablet MOUTH TWICE DAILY WITH MEALS documented as of this encounter (statuses as of 07/05/2020) Active Problems Problem Noted Date Elbow pain, right 06/28/2015 documented as of this encounter (statuses as of 07/05/2020) Social History Tobacco Use Types Packs/Day Years Used Date Former Smoker Quit: 10/12/19 05 Smokeless Tobacco: Never Used Alcohol Use Drinks/Week oz/Week Comments Yes 1 Glasses of wine 1.0 Approx. 1-2 ma rtinis daily Sex Assigned at Date Recorded Not on file documented as of this encounter Last Filed Vital Signs Vital Sign Reading Time Taken Comments Blood Pressure 106/60 07/05/2020 3:09 PM CDT Pulse 64 07/05/2020 3:09 PM CDT Temperature 35.9 C (96.7 F) 07/05/2020 3:09 PM CDT Respiratory Rate 20 07/05/2020 3:09 PM CDT Oxygen Saturation 98% 07/05/2020 3:09 PM CDT Inhaled Oxygen Concentration - - Weight 90.7 kg (200 lb) 07/05/2020 3:09 PM CDT Height 167.6 cm (5' 6") 07/05/2020 3:09 PM CDT Body Mass Index 32.28 07/05/2020 3:09 PM CDT documented in this encounter Progress Notes Souleymane Villeda MD - 07/05/2020 3:00 PM CDT Urology Clinic Note / History and Physical Referred by: Dr Pearl, Chief Complaint: I was asked to give my opinion regarding Jair Jasso is a 80 year old male who presents with BPH and LUTS History of Present Illness 07/05/2020: Jair Jasso 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 No hx of recent AUR , UTI or hematuria No hx of worsening back pain, weight loss or lower limbs pain, paresthesia or weakness No FHx of prostate cancer International Prostate Symptom Score (I-PSS) In the past month: (Not at all - 0, Less than 1 in 5 times - 1, Less than half the time - 2, About half the time - 3, More than half the time - 4, Almost always - 5) 1. Incomplete Emptyin 2. Frequency: 5 3. Intermittency: 0 4. Urgency: 3 5. Weak Stream: 0 6. Strainin 7. Nocturia: 4 TOTAL: 22 Bother score: 3 PSAs reviewed: No results found for: PSA Histories Past Medical History: Diagnosis Date Acid reflux Arthritis Atrial fibrillation CHF (congestive heart failure) Chronic back pain Congestive heart failure COPD (chronic obstructive pulmonary disease) Gout High cholesterol Hypertension Neuropathy Pacemaker Sciatica Past Surgical History: Procedure Laterality Date ABDOMINAL AORTIC ANEURYSM REPAIR APPENDECTOMY CABG, ARTERIAL, THREE 1990 ELBOW BURSECTOMY Left HEMORRHOIDECTOMY HERNIA REPAIR PACEMAKERS INSERTION TONSILLECTOMY Family History Problem Relation Age of Onset Other - see comments Mother ruptured triple a Cancer Father lung cancer Coronary Heart Disease Paternal Grandfather colon cancer Social History Socioeconomic History Marital status: Spouse name: Not on file Number of children: Not on file Years of education: Not on file Highest education level: Not on file Occupational History Not on file Social Needs Financial resource strain: Not on file Food insecurity Worry: Not on file Inability: Not on file Transportation needs Medical: Not on file Non-medical: Not on file Tobacco Use Smoking status: Former Smoker Quit date: 10/12/2004 Years since quittin.7 Smokeless tobacco: Never Used Substance and Sexual Activity Alcohol use: Yes Alcohol/week: 1.0 standard drinks Types: 1 Glasses of wine per week Comment: Approx. 1-2 martinis daily Drug use: No Sexual activity: Not on file Lifestyle Physical activity Days per week: Not on file Minutes per session: Not on file Stress: Not on file Relationships Social connections Talks on phone: Not on file Gets together: Not on file Attends sikhism service: Not on file Active member of club or organization: Not on file Attends meetings of clubs or organizations: Not on file Relationship status: Not on file Intimate partner violence Fear of current or ex partner: Not on file Emotionally abused: Not on file Physically abused: Not on file Forced sexual activity: Not on file Other Topics Concern Not on file Social History Narrative Not on file Allergies Allergies Allergen Reactions Penicillin Hives Review of Systems Constitutional: negative Eyes: negative Ears, nose, mouth, throat: negative Cardiovascular: negative Respiratory: negative Gastrointestinal: negative Genitourinary: (+) per HPI Musculoskeletal: negative Integumentary: negative Neurological: negative Psychiatric: negative Endocrine: negative Hematologic/Lymphatic: negative Allergic/Immunologic: negative, allergies listed above Physical Examination Blood pressure 106/60, pulse 64, temperature 35.9 C (96.7 F), temperature source Temporal Artery, resp. rate 20, height 1.676 m (5' 6"), weight 90.7 kg (200 lb), SpO2 98 %. Constitutional: healthy, no acute distress Eyes: normal external eye, conjunctiva and sclera normal Ears, nose, mouth, throat: normocephalic, moist mucous membranes Cardiovascular: regular rate and rhythm Respiratory: respirations unlabored on room air Gastrointestinal: soft, non-distended, no pain Genitourinary: circumcised, normal phallus, bilateral descended testes Rectal: declined Musculoskeletal: no clubbing, cyanosis or edema Skin: no rashes Neurologic: alert and oriented x3 Psychiatric: appropriate mood and affect Hematologic: no bruising Laboratory Per HPI Radiology No final results containing an impression from the past 30 days were found. Procedure Note PVR : 1st void 456 cc 2nd void 45 cc Assessment Jair Jasso is a 80 year old male with complex cardiac PMHx and high risk surgical patient : 1. BPH and LUTS on dual therapy I counseled patient about options for treating BPH and natural history if not treated ( bladder atony, voiding dysfunction, renal failure, stones recurrent infection, and need for mcc catheter) CIC, surgical options: TURP, ThuLVP to alleviate the obstruction and attempt improve LUTS and avoidrisk of complications from termination clerk THAYER. Possible adverse events recognized with TURP and ThuLVP include and not limited to ( pain, bleeding, infection, injury to surrounding structures, erectile dysfunction, urinary incontinence, retrograde ejaculation, stricture formation, inability to void/retention, prostatic regrowth, need for additional procedures). Prostatic Urethral Lift ( UroLift) ThuLVP has comparable outcomes when compared with the gold standard TURP, in addition to less risk of bleeding, catheterization time and need for hospitalization. Patient opted for conservative management Plan - c/n dual therapy - Patient was handed educational material - RTC 4 months MUSIC ENGRAVER clinic for PVR Souleymane Villeda MD ennifer Clements - 07/05/2020 3:00 PM CDTPer order Post void residual by bladder scan = 74 ml, results reported to provider. Jennifer Ross 07/05/2020 3:31 PM Eusebia Zarate RN - 07/05/2020 3:00 PM CDTDoamrik Jasso is a 80 year old male comes to clinic independent in ambulation for BPH. Pt comes alone . Pt in NAD w/ pain reported 0/10. Pt preferred language is Qatari. Pt. denies fall in last 12 months. Allergies and medications reviewed and updated. Per order Post void residual by bladder scan = 465 ml, results reported to provider. documented in this encounter Plan of Treatment Date Type Specialty Care Team Description 08/29/2020 Office Visit Urology Ena Chapman, [employer] [address] [address] 15 [phone] Health Maintenance Due Date Last Done Comments DTaP,Tdap,and Td Vaccines (1 - Tdap) 1957 Zoster Recombinant Vaccine (SHINGRIX) (1 of 2) 1988 Medicare Wellness Visit 2003 PNEUMOCOCCAL VACCINES 65+ (1 of 1 - PPSV23) 2003 INFLUENZA VACCINE (#1) 2020 Depression Screening 07/05/2021 07/05/2020 documented as of this encounter Procedures Procedure Name Priority Date/Time Associated Diagnosis Comme nts POCT URINALYSIS AUTO Routine 07/05/2020 4:18 Benign prostatic Results for this PM CDT hyperplasia, procedure are i n unspecified whether the resu lts lower urinary tract section. symptoms present documented in this encounter Results POCT URINALYSIS, INSTRUMENT (07/05/2020 4:18 PM CDT) Pathologist Sig nature POCT U SP GRAV 1.015 1.005 - 1.025 mg/dl POCT PH U 5.0 5 - 8 mg/dl POCT U LEUK EST Negative Negative - Negative POCT U NIT Negative Negative - Negative POCT U PROT Negative Negative - Negative POCT U GLU Negative Negative - Negative POCT U KETONE Negative Negative - Negative POCT U UROBILI 0.2 0.2 - 1 mg/dl POCT U BILI Negative Negative - Negative POCT U BLD Negative Negative - Negative POCT U COLOR yellow POCT U APPEAR clear Specimen Urine - URINE, CLEAN CATCH documented in this encounter Visit Diagnoses Diagnosis Benign prostatic hyperplasia, unspecifie d whether lower urinary tract symptoms present - Primary documented in this encounter Insurance Payer Benefit Plan / Subscriber ID Effective Phone Address T ype Group Dates [facility] [id number] 2016-Prese Medic are Adv HEALTHCARE - HEALTHCARE nt PPO MANAGED MEDICARE GOLD MEDICARE documented as of this encounter
--- OUTSIDE RECORDS SUMMARY | 2020-07-25 13:17 | XMS REPORT | Summary of Care ---
:1940 Author Organization [facility] - [facility] Address [address] [place] [id number] Care Team Providers Name Role Phone Armando Pearl Primary Care Provider Reason for Visit Reason Comments New Patient BPH Encounter Details Date Type Department Care Team Description 07/05/[address] [facility] Urology- Siria Villeda MD Benign prostatic [place] hyperplasia, [address] 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 Possible adverse events recognized with TURP [...] handed educational material - RTC 4 months DIRECTOR GEOPHYSICAL LABORATORY clinic for PVR Souleymane Villeda MD ennifer [...] pain reported 0/10. Pt preferred language is Sri Lankan. Pt. denies fall in last 12 months. Allergies and medications reviewed and updated. Per order Post void residual by bladder scan = 465 ml, results reported to provider. documented in this encounter Plan of Treatment Date Type Specialty Care Team Description 08/29/2020 Office Visit Urology Ena Chapman, FRENCH TUTOR [address] [address] 15 [phone] Health Maintenance Due Date Last Done Comments [...] Effective Phone Address T ype Group Dates [facility] [id number] 2016-Prese Medic are Adv HEALTHCARE - HEALTHCARE nt PPO MANAGED MEDICARE GOLD MEDICARE documented as of this encounter
--- OUTSIDE RECORDS SUMMARY | 2020-07-25 13:17 | XMS REPORT | Summary of Care ---
:1940 Author Organization [facility] - [facility] Address [address] [place] [address] Care Team Providers Name Role Phone Armando Pearl Primary Care Provider Reason for Visit Reason Comments New Patient BPH Encounter Details Date Type Department Care Team Description 07/05/2020 Office Visit [facility] Urology- Siria Villeda MD Benign prostatic [place] hyperplasia, [address] 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 Possible adverse events recognized with TURP [...] handed educational material - RTC 4 months ROUTE RELIEF DRIVER clinic for PVR Souleymane Villeda MD ennifer [...] pain reported 0/10. Pt preferred language is Swazi. Pt. denies fall in last 12 months. Allergies and medications reviewed and updated. Per order Post void residual by bladder scan = 465 ml, results reported to provider. documented in this encounter Plan of Treatment Date Type Specialty Care Team Description 08/29/2020 Office Visit Urology Ena Chapman, AIR PLANT ENGINEER [address] [address] 15 [phone] Health Maintenance Due Date Last Done Comments [...] Effective Phone Address T ype Group Dates [facility] [id number] 2016-Prese Medic are Adv HEALTHCARE - HEALTHCARE nt PPO MANAGED MEDICARE GOLD MEDICARE documented as of this encounter
--- OUTSIDE RECORDS SUMMARY | 2020-07-25 13:17 | XMS REPORT | Summary of Care ---
:1940 Author Organization [facility] - [facility] Address [address] [place] [address] Care Team Providers Name Role Phone Armando Pearl Primary Care Provider Encounter Details Date Type Department Care Team Description 07/05/2020 Orders Only [facility] Doctor Unassigned, No [address] [facility] [place] [address] [address] [place] [address] Allergies Active Allergy Reactions Severity Noted Date [...] of this encounter Last Filed Vital Signs Not on filedocumented in this encounter Plan of Treatment Date Type Specialty Care Team Description 07/05/2020 Office Visit Urology Souleymane Villeda MD [address] [place] [address]. [place] [phone] Health Maintenance Due Date Last Done Comments Depression Screening 1950 DTaP,Tdap,and Td Vaccines (1 - Tdap) 1957 Zoster Recombinant Vaccine (SHINGRIX) (1 of 2) 1988 Medicare Wellness Visit 2003 PNEUMOCOCCAL VACCINES 65+ (1 of 1 - PPSV23) 2003 INFLUENZA VACCINE (#1) 2020 documented as of this encounter Procedures Procedure Name Priority Date/Time Associated Diagnosis Comme nts ASSIGNMENT OF BENEFITS Routine 07/05/2020 2:51 PM CDT documented in this encounter Results Not on filedocumented in this encounter Insurance Payer Benefit Plan / Subscriber ID Effective Phone Address T ype Group Dates [facility] [id number] 2016-Prese Medic are Adv HEALTHCARE - HEALTHCARE nt PPO MANAGED MEDICARE GOLD MEDICARE documented as of this encounter
--- OUTSIDE RECORDS SUMMARY | 2020-07-25 13:17 | XMS REPORT | Continuity of Care Document ---
:1940 Author Organization [facility] t Address [address] [place] [address] Care Team Providers Name Role Phone Ronal OLVERA Attending Clinician DR TYSON Attending Clinician Unavailable DR TYSON Admitting Clinician Unavailable Payers Payer Name Policy Type Policy Number Effective Date Expiration Date S ource Problems This patient has no known problems. Allergies, Adverse Reactions, Alerts Allergy Allergy Status Severity Reaction(s) Onset Inactive Treating Comm ents Source Name Type Date Date Clinician [place] DA Active [place] [facility] ins - Clear 00:00: [facility] penicill DA Active [facility] in V 10-14 Clear 00:00: [facility] No Known DA Active [facility] Contrast 10-14 Clear Allergie 00:: [facility] No Known DA Active U 2007- [facility] Food 10-14 Clear Allergie 00:00: [facility] No Known DA Active U 2007- [facility] Other 10-14 Clear Allergie 00:00: [facility] PENICILL DA Active U 2007- [facility] IN 10-14 Clear 00:00: Bower 00 [facility] Medications This patient has no known medications. Procedures This patient has no known procedures. Encounters Start End Encounter Admission Attending Care Care Encounter Source Date/Time Date/Time Type Type Clinicians Facility Department ID 2020-07-05 2020-07-05 Office JAZMIN Villeda [id number] 14:53:28 16:00:47 Visit Souleymane Arriaga [id number] Steph [id number] Catia [id number] [facility] [address] Building 2017-07-14 2017-07-14 Outpatient Batsheva TYSON [facility] [id number] 10:47:00 10:47:00 [facility] Results Test Description Test Time Test Comments Results Result Comments Source PROTHROMBIN TIME 2019-11-24 13:38:00 Test Item Value Reference Range Interpretation Comme nts PROTHROMBIN TIME PATIENT 11.7 SECONDS 9.3-12.9 N (test code = PTP) INTERNATIONAL NORMAL RATIO 1.1 0.8-1.2 N TARGET INR BY (test code = INR) INDICATION Indication INR1. Prophylax is of venous thrombosis 2.0 - 3.0 (orthopedic s urgery), Prophylaxis of venous thrombosis (oth er than high-risk surgery), Aung atment of Deep Vein Thrombos is/Pulmonary Embolism, Preve ntion of systemic emboli sm - Tissue heart valves, Acute Myocardial Infarction (to prevent systemic emboli sm), Valvular heart disease, Atrial Fibrillation, B ileaflet mechanical va lve in aortic position.2. Mec hanical prosthetic valv es (high risk), 2.5 - 3.5 Pr esence of Lupus Anticoagulant o r Antiphospholipi d Antibodies, Prevention of systemic embolism - Acut e Myocardial Infarction (t o prevent recurrent infar ct). BASIC METABOLIC [id number] 13:33:00 Test Item Value Reference Range Interpretation Comments SODIUM (test code = NA) 138 mEq/L 134-147 N POTASSIUM (test code = 4.4 mEq/L 3.4-5.0 N K) CHLORIDE (test code = 105 mEq/L 100-108 N CL) CARBON DIOXIDE (test 28 mEq/L 21-33 N code = CO2) ANION GAP (test code = 9 0-20 N GAP) GLUCOSE (test code = 102 mg/dL 70-110 N GLU) BLOOD UREA NITROGEN 39 mg/dL 7-18 H (test code = BUN) GLOMERULAR FILTRATION 38.9 70-80 L Units of measure = RATE (test code = GFR) ml/mi n/1.73 m2 CREATININE (test code = 1.7 mg/dL 0.6-1.3 H CREAT) CALCIUM (test code = 9.3 mg/dL 8.0-10.5 N CA) - XR CHEST 1 [id number] 13:30:00 FAX: Tania Melendez [phone] [place]: St: REG Name: CHRISTIANOMARIA JULIAN [facility] : 1940 Age/S: 79/M [address] [place] [address] Unit#: [id number] Loc: [place] [address] Phys: Tania Dozier MD Acct: [id number] Dis Date: Status: REG [facility] PHONE #: [phone] Exam Date: 11/24/2019 1327 FAX #: [phone] Reason: PRE PROCEDURE EXAMS: CPT CODE: [id number] XR CHEST 1 V 07968 Exam: Chest radiograph frontal view Indication: 79-year-old male, preprocedure. Comparison: None. Technique: Chest radiograph frontal view. Findings: The cardiomediastinal silhouette is within normal limits. There are multiple median sternotomy wires. There is a left pectoral implantable cardiac device. There is no focal airspace consolidation. No pleural effusion. No pneumothorax. No acute osseous abnormality. Impression: No acute cardiopulmonary disease. SL: [id number] at 1330 Reported and signed by: Jared West M.D. CC: Tania Dozier MD Technologist: Luis Olson RT(R) Trnscrd Date/Time/By: 11/24/2019 (0335) : By: [email or web address] Orig Print D/T: S: 11/24/2019 (2919) PAGE 1 Signed ReportBASIC METABOLIC [id number] 13:24:00 Test Item Value Reference Range Interpretation Comments SODIUM (test code = NA) 138 mEq/L 134-147 N POTASSIUM (test code = K) 4.4 mEq/L 3.4-5.0 N CHLORIDE (test code = CL) 105 mEq/L 100-108 N CARBON DIOXIDE (test code = CO2) 28 mEq/L 21-33 N ANION GAP (test code = GAP) 9 0-20 N GLUCOSE (test code = GLU) 102 mg/dL 70-110 N BLOOD UREA NITROGEN (test code = 39 mg/dL 7-18 H BUN) GLOMERULAR FILTRATION RATE (test 70-80 code = GFR) CREATININE (test code = CREAT) mg/dL 0.6-1.3 CALCIUM (test code = CA) 9.3 mg/dL 8.0-10.5 N CBC W/AUTO [id number] 13:13:00 Test Item Value Reference Range Interpretation Comments WHITE BLOOD CELL (test code = 8.86 x10 3/uL 4.5-11.0 N WBC) RED BLOOD CELL (test code = 4.29 x10 6/uL 4.00-5.60 N RBC) HEMOGLOBIN (test code = HGB) 13.8 g/dL 12.5-16.9 N HEMATOCRIT (test code = HCT) 42.5 % 37.5-50.7 N MEAN CELL VOLUME (test code = 99.1 fL 81.0-99.0 H MCV) MEAN CELL HGB (test code = MCH) 32.2 pg 27.0-33.0 N MEAN CELL HGB CONCETRATION 32.5 g/dL 33.0-37.0 L (test code = MCHC) RED CELL DISTRIBUTION WIDTH CV 13.3 % 11.5-14.5 N (test code = RDW) RED CELL DISTRIBUTION WIDTH SD 48.8 fL 37.0-54.0 N (test code = RDW-SD) PLATELET COUNT (test code = 205 x10 3/uL 150-400 N PLT) MEAN PLATELET VOLUME (test code 9.8 fL 7.0-9.0 H = MPV) NEUTROPHIL % (test code = NT%) 71.9 % 56.0-77.0 N IMMATURE GRANULOCYTE % (test 0.5 % 0.0-2.0 N code = IG%) LYMPHOCYTE % (test code = LY%) 16.7 % 14.0-32.0 N MONOCYTE % (test code = MO%) 7.7 % 4.8-9.0 N EOSINOPHIL % (test code = EO%) 2.7 % 0.3-3.7 N BASOPHIL % (test code = BA%) 0.5 % 0.0-2.0 N NUCLEATED RBC % (test code = 0.0 % 0-0 N NRBC%) NEUTROPHIL # (test code = NT#) 6.38 x10 3/uL 2.0-7.6 N IMMATURE GRANULOCYTE # (test 0.04 x10 3/uL 0.00-0.03 H code = IG#) LYMPHOCYTE # (test code = LY#) 1.48 x10 3/uL 1.0-3.8 N MONOCYTE # (test code = MO#) 0.68 x10 3/uL 0.1-0.8 N EOSINOPHIL # (test code = EO#) 0.24 x10 3/uL 0.0-0.2 H BASOPHIL # (test code = BA#) 0.04 x10 3/uL 0.0-0.2 N NUCLEATED RBC # (test code = 0.00 x10 3/uL 0.0-0.1 N NRBC#) MANUAL DIFF REQUIRED (test code NO = MDIFF)
[2020-07-25] MEDS ORDERED: METHYLPREDNISOLONE 125 MG INJ ONE (13:48)
--- NOTE | 2020-07-25 14:20 | RAD REPORT ---
EXAM DESCRIPTION: Evans Single View07/25/2020 2:08 pm CLINICAL HISTORY: Cough COMPARISON: 2016 FINDINGS: The lungs appear clear of acute infiltrate. The heart is mildly enlarged. Pacemaker leads are in place. Postsurgical changes involve the chest. Prominence of the thoracic aorta IMPRESSION: Prominence of the thoracic aorta has the appearance of an aneurysm. It appears progresse d from the 2016 exam
[2020-07-25 14:29] LABS: Absolute Lymphocytes (CBC) 1.1 K/uL (0.7-4.9); Basophils % 0.8 % (0-1.3); Hematocrit 40.7 % (39.6-49.0); Lymphocytes % 15.6 % (15.3-44.8); MPV 9.2 fL (7.6-11.3); RBC Red Blood Cell Count 4.28 M/uL (4.33-5.43)
[2020-07-25 14:46] LABS: ALT/SGPT 26 U/L (12-78); AST/SGOT 17 U/L (15-37); Albumin 3.5 g/dL (3.4-5.0); Alkaline Phosphatase 87 U/L (45-117); BUN Blood Urea Nitrogen 30 mg/dL (7-18); Bicarbonate 26 mmol/L (21-32); Bilirubin Direct 0.2 mg/dL (0-0.2); Bilirubin Total 0.4 mg/dL (0.2-1.0); Glucose Level 106 mg/dL (74-106); Magnesium 2.3 mg/dL (1.8-2.4); NT PRO-BNP 1545 pg/mL (<450); Potassium 4.9 mmol/L (3.5-5.1); Protein, Total 6.8 g/dL (6.4-8.2); Sodium Level 140 mmol/L (136-145); Troponin (Emerg Dept Use Only) < 0.02 ng/mL (0.0-0.045)
[2020-07-25 14:50] LABS: Protime INR 0.96
--- NOTE | 2020-07-25 16:40 | RAD REPORT ---
EXAM DESCRIPTION: CT - Angio Aorta For Dissection - 07/25/2020 4:19 pm CLINICAL HISTORY: . Shortness of breath/chest and abdominal pain COMPARISON: Chest x-ray July 25, 2020 TECHNIQUE: Computed tomography angiography of the chest, abdomen pelvis were obtained. 100 cc Isovue 370 was administered intravenously. Coronal and sagittal reconstruction were performed. MIP 3D reconstruction was performed All CT scans are performed using dose optimization technique as appropriate and may include automated exposure control or mA/KV adjustment according to patient size. FINDINGS: An aortic dissection is not seen. The root of the ascending thoracic aorta has an AP diam eter 4.1 centimeters. The AP diameter of the descending thoracic aorta 4.8 centimeters. It contains a moderate amount of thrombus. An aneurysm involves the abdominal aorta with an AP diameter of 3.5 centimeters. It contains a modera te amount of thrombus. The celiac, SMA and FAWAD are patent . A lung consolidation is not present. 3.1 centimeter bleb is present within the right lung. A pericardial effusion is not seen. A pleural effusion is not noted. The liver,spleen, pancreas adrenals and kidneys demonstrate no significant abnormality. Gallstones without gallbladder wall thickening. . Moderate left and small to moderate right inguinal hernias contain fat. Diverticula stem from the colon without evidence diverticulitis Spondylosis involves the lumbar spine resulting in spinal stenosis. Mild anterior subluxation L4 on L 5 IMPRESSION: Negative for an aortic dissection. 4.8 centimeter aneurysm descending thoracic aorta 3.5 centimeter aneurysm abdominal aorta
--- NOTE | 2020-07-25 17:36 | ER ---
Nurse's Notes [facility] Name: Jair Jasso Age: 80 yrs Sex: Male : 1940 Arrival Date: 07/25/2020 Time: 13:05 Bed 6 Private MD: Faisal Johnson R Diagnosis: Thoracic aortic aneurysm, without rupture;Abdominal aortic aneurysm, without rupture Presentation: 07/25 13:24 Chief complaint: Patient states: sent by Dr Johnson to r/o walking pneumonia. Pt reports sv wet non-productive cough, congestion, and dyspnea x 1 week. Coronavirus screen: Client denies travel out of the [place] in the last 14 days. congestion, cough unrelated to allergies, difficulty breathing, Client presents with at least one sign or symptom that may indicate coronavirus-19. Standard/surgical mask placed on the client. Provider contacted for isolation considerations. Ebola Screen: No symptoms or risks identified at this time. Initial Sepsis Screen: Does the patient meet any 2 criteria? No. Patient's initial sepsis screen is negative. Does the patient have a suspected source of infection? No. Patient's initial sepsis screen is negative. Risk Assessment: Do you want to hurt yourself or someone else? Patient reports no desire to harm self or others. Onset of symptoms was July 18, 2020. 13:24 Method Of Arrival: Wheelchair sv 13:24 Acuity: SILVIA 3 sv Triage Assessment: 13:27 General: Appears in no apparent distress. comfortable, well developed, Behavior is sv calm, cooperative, appropriate for age. Pain: Denies pain. Neuro: Level of Consciousness is awake, alert, obeys commands, Oriented to person, place, time, situation, Moves all extremities. Full function Gait is steady, Speech is normal. Respiratory: Reports shortness of breath cough that is non-productive, Airway is patent Respiratory effort is even, unlabored, Respiratory pattern is regular, symmetrical. Derm: Skin is pink, warm \T\ dry. 19:15 General: Appears in no apparent distress. wh 19:30 Respiratory: Breath sounds with wheezes. wh Historical: - Allergies: 13:27 PENICILLINS; sv - PMHx: 13:27 AAA; CAD; CHF; COPD; High Cholesterol; Myocardial infarction; Pacemaker; enlarged sv prostate; - PSHx: 13:27 AAA repair; triple bypass; Appendectomy; left elbow; Tonsillectomy; Hemorroidectomy; sv Umbilectomy; - Immunization history:: Pneumococcal vaccine is not up to date, Flu vaccine is not up to date. - Social history:: Smoking status: . Screenin:27 Abuse screen: Denies threats or abuse. Denies injuries from another. Nutritional sv screening: No deficits noted. Tuberculosis screening: No symptoms or risk factors identified. Fall Risk None identified. Assessment: 13:40 Reassessment: COVID-19 and flu sent to outside lab. sv 13:40 Reassessment: Patient appears in no apparent distress at this time. No changes from sv previously documented assessment. Patient and/or family updated on plan of care and expected duration. Pain level reassessed. Patient is alert, oriented x 3, equal unlabored respirations, skin warm/dry/pink. 15:57 Reassessment: Patient appears in no apparent distress at this time. Patient and/or sv family updated on plan of care and expected duration. Pain level reassessed. Patient is alert, oriented x 3, equal unlabored respirations, skin warm/dry/pink. 18:55 Reassessment: Attempted to call report to Eugene Garcia, nurse unavailable to take sv report at this time. 19:15 General: Appears in no apparent distress. Pain: Denies pain. Neuro: Level of Consciousness is awake, alert, obeys commands, Oriented to person, place, time, situation, Appropriate for age. Cardiovascular: Heart tones S1 S2. Respiratory: Airway is patent Respiratory effort is even, unlabored, Respiratory pattern is regular, symmetrical, Breath sounds with wheezes. GI: Abdomen is non-distended. 19:45 Reassessment: Patient appears in no apparent distress at this time. Patient and/or wh family updated on plan of care and expected duration. Pain level reassessed. Patient is alert, oriented x 3, equal unlabored respirations, skin warm/dry/pink. 19:50 Reassessment: Report given to Lisa Ferreira RN. 20:30 Reassessment: Patient appears in no apparent distress at this time. Patient and/or wh family updated on plan of care and expected duration. Pain level reassessed. Patient is alert, oriented x 3, equal unlabored respirations, skin warm/dry/pink. updated on POC need for transfer. Vital Signs: 13:24 BP 103 / 56; Pulse 62; Resp 20; Temp 96.9; Pulse Ox 96% ; Weight 90.72 kg; Height 5 ft. sv 9 in. (175.26 cm); Pain 0/10; 14:14 BP 130 / 77; Pulse 59; Resp 20; Pulse Ox 98% on R/A; sv 15:10 BP 127 / 73; Pulse 58; Resp 16; Pulse Ox 98% ; sv 15:56 BP 129 / 54; Pulse 59; Resp 16; Temp 97; Pulse Ox 98% on R/A; sv 17:06 BP 144 / 82; Pulse 63; Resp 18; Pulse Ox 100% ; sv 18:20 BP 172 / 93; Pulse 58; Resp 18; Pulse Ox 98% ; sv 19:49 BP 144 / 69; Pulse 63; Resp 18; Pulse Ox 99% on R/A; wh 20:30 BP 152 / 75; Pulse 62; Resp 18; Pulse Ox 98% on R/A; wh 13:24 Body Mass Index 29.53 (90.72 kg, 175.26 cm) sv ED Course: 13:05 Patient arrived in ED. mr 13:06 Faisal Johnson MD is Private Physician. mr 13:17 [facility] cp 13:17 Julian Wasserman MD is Attending Physician. cp 13:24 Madison Pryor, ARCHANA is Primary Nurse. sv 13:26 Triage completed. sv 13:27 Nurse Practitioner and/or Physician Vice Provost to see patient. sv 13:27 Arm band placed on. sv 13:27 Patient has correct armband on for positive identification. Placed in gown. Bed in low sv position. Call light in reach. Pulse ox on. NIBP on. Door closed. Head of bed elevated. 13:40 Inserted saline lock: 20 gauge in right wrist, using aseptic technique. Blood sv collected. Flushed right with 2 ml normal saline. 14:06 X-ray(s) taken. sv 14:07 Awaiting lab results, Awaiting radiology results. sv 14:09 XRAY Chest (1 view) In Process Unspecified. EDMS 15:[address] Scan. sv 15:[address] Scan. sv 16:19 CT Aorta for Dissection In Process Unspecified. EDMS 16:28 Awaiting radiology results. sv 17:23 SARS-COV-2 RT PCR Sent. sv 17:48 initiated transfer to [facility]. bd 18:33 partial approval given by juju escobedo, full approval will be given when covid bd results are back. 18:35 negative covid results faxed to [facility]. bd 19:08 Report given to Malvin MAGAÑA and John MAGAÑA. sv 19:09 Primary Nurse role handed off by Madison Pryor, ARCHANA sv 20:25 No provider procedures requiring assistance completed. Patient transferred, IV remains wh in place. Administered Medications: 13:55 Drug: SOLU-Medrol 80 mg Route: IVP; Site: right wrist; sv 14:30 Follow up: Response: No adverse reaction sv Outcome: 17:35 ER care complete, transfer ordered by . cp 20:25 Patient left the ED. mw2 20:25 Transferred by ground EMS to [facility], Transfer form completed. X-rays wh sent w/ patient. Note: Report given to [facility] 20:25 Condition: stable 20:25 Instructed on the need for transfer. Signatures: Dispatcher [employer] EDMS Malaika Pinzon Madison Pryor, ARCHANA MAGAÑA Cody, Melchor Zambrano, John English cp Champ Knapp mw2 Corrections: (The following items were deleted from the chart) 17:09 17:06 Pulse 63bpm; Resp 18bpm; Pulse Ox 100%; sv sv 18:21 15:56 BP 129 / 54; Pulse 59bpm; Resp 16bpm; Pulse Ox 98% RA; sv sv 20:49 20:49 Respiratory: [facility] 20:49 20:47 No provider procedures requiring assistance completed. [facility] 20:49 20:47 Patient transferred, IV remains in place. [facility] 20:55 19:15 Reassessment: Patient appears in no apparent distress at this time. Patient wh and/or family updated on plan of care and expected duration. Pain level reassessed. Patient is alert, oriented x 3, equal unlabored respirations, skin warm/dry/pink. 20:59 20:30 Reassessment: Patient appears in no apparent distress at this time. Patient wh and/or family updated on plan of care and expected duration. Pain level reassessed. Patient is alert, oriented x 3, equal unlabored respirations, skin warm/dry/pink. updated on POC need for admit : 19:15 Reassessment: Patient appears in no apparent distress at this time. Patient and/or family updated on plan of care and expected duration. Pain level reassessed. Patient is alert, oriented x 3, equal unlabored respirations, skin warm/dry/pink. : 20:54 General: Appears in no apparent distress. [facility] : 20:54 Pain: Denies pain. [facility] 20:54 Neuro: Level of Consciousness is awake, alert, obeys commands, Oriented to person, place, time, situation, Appropriate for age 20:54 Cardiovascular: Heart tones S1 S2 [facility] : 20:54 Respiratory: Airway is patent Respiratory effort is even, unlabored, Respiratory pattern is regular, symmetrical, Breath sounds with wheezes : 20:54 GI: Abdomen is non-distended, [facility] 21:01 20:47 BP 152 / 75; Pulse 62bpm; Resp 18bpm; Pulse Ox 98% RA; [facility]
--- NOTE | 2020-07-25 17:36 | EDPHYS ---
Physician Documentation [facility] Name: Jair Jasso Age: 80 yrs Sex: Male : 1940 Arrival Date: 07/25/2020 Time: 13:05 Bed 6 Private MD: Faisal Johnson R ED Physician Julian Wasserman HPI: 07/25 13:35 This 80 yrs old Male presents to ER via Wheelchair with complaints of Cough, cp Congestion. 13:35 The patient or guardian reports cough, that is intermittent, with productive sputum, cp clear. 13:35 Onset: The symptoms/episode began/occurred 1 week(s) ago. cp 13:35 Associated signs and symptoms: Pertinent positives: shortness of breath, Pertinent cp negatives: chest pain, diarrhea, fever, vomiting. Historical: - Allergies: 13:27 PENICILLINS; sv - PMHx: 13:27 AAA; CAD; CHF; COPD; High Cholesterol; Myocardial infarction; Pacemaker; enlarged sv prostate; - PSHx: 13:27 AAA repair; triple bypass; Appendectomy; left elbow; Tonsillectomy; Hemorroidectomy; sv Umbilectomy; - Immunization history:: Pneumococcal vaccine is not up to date, Flu vaccine is not up to date. - Social history:: Smoking status: . ROS: 13:40 Constitutional: Negative for body aches, chills, fever, poor PO intake. cp 13:40 Eyes: Negative for injury, pain, redness, and discharge. cp 13:40 Cardiovascular: Negative for chest pain, edema, palpitations. cp 13:40 ENT: Negative for ear pain, sore throat, difficulty swallowing, difficulty handling cp secretions. 13:40 Respiratory: Positive for cough, with clear sputum, shortness of breath. 13:40 Abdomen/GI: Negative for abdominal pain, nausea, vomiting, and diarrhea. 13:40 Back: Negative for radiated pain. 13:40 Skin: Negative for rash. 13:40 Neuro: Negative for altered mental status, dizziness, headache, syncope, weakness. 13:40 All other systems are negative. Exam: 13:45 Constitutional: The patient appears in no acute distress, alert, awake, cp non-diaphoretic, non-toxic, well developed, well nourished. 13:45 Head/Face: Normocephalic, atraumatic. cp 13:45 Eyes: Periorbital structures: appear normal, Conjunctiva: normal, no exudate, no injection, Sclera: no appreciated abnormality, Lids and lashes: appear normal, bilaterally. 13:45 ENT: External ear(s): are unremarkable, Nose: is normal, Posterior pharynx: Airway: no evidence of obstruction, patent. 13:45 Chest/axilla: Inspection: normal, Palpation: is normal, no crepitus, no tenderness. 13:45 Cardiovascular: Rate: normal, Rhythm: regular, Edema: is not appreciated, JVD: is not appreciated. 13:45 Respiratory: the patient does not display signs of respiratory distress, Respirations: labored breathing, that is mild, intercostal retractions, are absent, tachypnea, is not appreciated, Breath sounds: bronchial sounds, that are mild, lower lung cash bilaterally, stridor, is not appreciated, wheezing: that is mild, is heard in the left posterior lower lobe, right posterior middle lobe and right posterior lower lobe. 13:45 Abdomen/GI: Inspection: abdomen appears normal, Palpation: abdomen is soft and non-tender, in all quadrants. 13:45 Back: pain, is absent, ROM is normal. 13:45 Skin: no rash present. 13:45 Neuro: Orientation: to person, place \T\ time. Mentation: is normal, Motor: moves all fours, strength is normal. 14:05 ECG was reviewed by the Attending Physician. cp Vital Signs: 13:24 BP 103 / 56; Pulse 62; Resp 20; Temp 96.9; Pulse Ox 96% ; Weight 90.72 kg; Height 5 ft. sv 9 in. (175.26 cm); Pain 0/10; 14:14 BP 130 / 77; Pulse 59; Resp 20; Pulse Ox 98% on R/A; sv 15:10 BP 127 / 73; Pulse 58; Resp 16; Pulse Ox 98% ; sv 15:56 BP 129 / 54; Pulse 59; Resp 16; Temp 97; Pulse Ox 98% on R/A; sv 17:06 BP 144 / 82; Pulse 63; Resp 18; Pulse Ox 100% ; sv 18:20 BP 172 / 93; Pulse 58; Resp 18; Pulse Ox 98% ; sv 19:49 BP 144 / 69; Pulse 63; Resp 18; Pulse Ox 99% on R/A; wh 20:30 BP 152 / 75; Pulse 62; Resp 18; Pulse Ox 98% on R/A; wh 13:24 Body Mass Index 29.53 (90.72 kg, 175.26 cm) sv MDM: 13:30 Patient medically screened. 14:58 ED course: Spoke with DR Francisco to discuss creatinine level, recommends full dose of cp contrast for CT Aorta. 16:50 Data reviewed: vital signs, nurses notes, lab test result(s), radiologic studies, CT cp scan, plain films, I have discussed the patient's presentation/case with the attending Emergency Department Physician;. 16:50 Test interpretation: by ED physician or midlevel provider: ECG. Counseling: I had a cp detailed discussion with the patient and/or guardian regarding: the historical points, exam findings, and any diagnostic results supporting the discharge/admit diagnosis, lab results, the need to transfer to another facility, [facility] does not immediately have the required specialist. 17:10 Physician consultation: was contacted at 17:10, regarding regarding transfer, to [facility]. patient's condition, DR Yee, cardiothoracic surgery, will accept patient as transfer. 07/25 13:34 Order name: Basic Metabolic Panel; Complete Time: 14:49 cp 07/25 14:58 Interpretation: Normal except: CL 108; BUN 30; CRE 1.64; GFR 40; CA 8.3. cp 07/25 13:34 Order name: CBC with Diff; Complete Time: 14:38 cp 07/25 14:38 Interpretation: Normal except: RBC 4.28; HGB 13.2; EOSINOPHIL % 4.6. cp 07/25 13:34 Order name: LFT's; Complete Time: 14:49 cp 07/25 13:34 Order name: Magnesium; Complete Time: 14:49 cp 07/25 13:34 Order name: NT PRO-BNP; Complete Time: 14:49 cp 07/25 15:02 Interpretation: Abnormal: NT PRO-BNP 1545. cp 07/25 13:34 Order name: PT-INR; Complete Time: 14:57 cp 07/25 13:34 Order name: Troponin (emerg Dept Use Only); Complete Time: 14:49 cp 07/25 13:34 Order name: XRAY Chest (1 view); Complete Time: 14:38 cp 07/25 13:34 Order name: Procalcitonin; Complete Time: 14:57 cp 07/25 13:34 Order name: Influenza Screen (a \T\ B); Complete Time: 15:02 cp 07/25 15:02 Interpretation: Reviewed. 07/25 15:01 Order name: CT Aorta for Dissection; Complete Time: 16:46 cp 07/25 17:22 Order name: SARS-COV-2 RT PCR EDMS 07/25 13:34 Order name: EKG; Complete Time: 13:35 cp 07/25 13:34 Order name: Cardiac monitoring; Complete Time: 14:06 cp 07/25 13:34 Order name: EKG - Nurse/Tech; Complete Time: 14:06 cp 07/25 13:34 Order name: IV Saline Lock; Complete Time: 14:06 cp 07/25 13:34 Order name: Labs collected and sent; Complete Time: 14:06 cp 07/25 13:34 Order name: O2 Per Protocol; Complete Time: 14:06 cp 07/25 13:34 Order name: O2 Sat Monitoring; Complete Time: 14:06 cp EC:05 Rate is 62 beats/min. Rhythm is regular, Paced. QRS interval is prolonged at 132 msec. cp QT interval is normal. T waves are Inverted in leads II, aVF. Interpreted by me. Reviewed by me. Administered Medications: 13:55 Drug: SOLU-Medrol 80 mg Route: IVP; Site: right wrist; sv 14:30 Follow up: Response: No adverse reaction sv Disposition: 07/26 08:25 Co-signature as Attending Physician, Julian Wasserman MD I agree with the assessment and kdr plan of care. Disposition: 07/25/20 17:35 Transfer ordered to [facility]. Diagnosis are Thoracic aortic aneurysm, without rupture, Abdominal aortic aneurysm, without rupture. - Reason for transfer: Higher level of care. - Accepting physician is DR Yee. - Condition is Stable. - Problem is new. - Symptoms have improved. Signatures: Dispatcher [employer] EDIN Madison Pryor RN RN sv Rittger, Kevin, MD MD [facility] Melchor Hoover PA PA Champ Knapp mw2 Corrections: (The following items were deleted from the chart) 10/14 14:58 14:49 Normal except: CL 108; BUN 30; CRE 1.64; GFR 40. cp cp 17:22 13:35 CORONAVIRUS+MR.LAB.BRZ ordered. EDMS EDMS 18:49 17:35 07/25/2020 17:35 Transfer ordered to [facility]. Diagnosis is Thoracic cp aortic aneurysm, without rupture; Abdominal aortic aneurysm, without rupture. Reason for transfer: Higher level of care. Accepting physician is Doctor. Condition is Stable. Problem is new. Symptoms have improved. cp 20:25 18:49 07/25/2020 17:35 Transfer ordered to [facility]. Diagnosis is Thoracic mw2 aortic aneurysm, without rupture; Abdominal aortic aneurysm, without rupture. Reason for transfer: Higher level of care. Accepting physician is DR Yee. Condition is Stable. Problem is new. Symptoms have improved. cp
[2020-07-25 20:38] VITALS: TEMP 97
[2020-07-25 20:42] VITALS: BP 144/69; O2SAT 99
--- NOTE | 2020-07-26 07:06 | EKG ---
Test Date: 2020-07-25 Test Time: 13:55:54 Residential Program Director: MIKI MEASUREMENT RESULTS: Intervals: Rate: 62 DE: QRSD: 132 QT: 486 QTc: 493 [place]: P: DE: QRS: -52 T: 231 INTERPRETIVE STATEMENTS: Electronic ventricular pacemaker Compared to ECG 01/21/2019 18:05:26 No significant changes Electronically Signed On 07-26-20 07:03:57 CDT by Nick Herbert
== END 2020-07-25 20:25 | disposition short-term general hospital (02) ==
LOC: ER 13:01
DX: I71.2 Thoracic aortic aneurysm, without rupture (principal); I71.4 Abdominal aortic aneurysm, without rupture; Z20.828 Contact with and (suspected) exposure to other viral communicable diseases; Z95.0 Presence of cardiac pacemaker; Z95.1 Presence of aortocoronary bypass graft; Z88.0 Allergy status to penicillin
CPT/HCPCS: 93005; 85025; 80048; 36415; 83735; 85610; 80076; 84484; 84145; 83880; 87804 ×2; 71275; 74175; 71045; 96374; 99285; U0003; Q9967; J2930

== ENCOUNTER 2021-07-20 10:22 | Emergency (ER) | payer OTHER ==
[2021-07-20] MEDS ORDERED: LIDOCAINE 1% MPF 5 ML VIAL ONE (11:02)
[2021-07-20] MEDS ORDERED: DERMABOND SKIN ADHESIVE TOP ONE (11:02)
[2021-07-20] MEDS ORDERED: TETANUS & DIPHTHERIA TOX,ADULT 0.5 ML VIAL ONE (11:02)
--- NOTE | 2021-07-20 11:23 | RAD REPORT ---
EXAM DESCRIPTION: CT - Head Brain Wo Cont - 07/20/2021 10:56 am CLINICAL HISTORY: Fall injury Fall, trauma, head injury COMPARISON: Head Brain Wo Cont dated 01/21/2019; HEAD BRAIN W O CONTRAST dated 11/15/2013 TECHNIQUE: All CT scans are performed using dose optimization technique as appropriate and may inclu de automated exposure control or mA/KV adjustment according to patient size. FINDINGS: No intracranial hemorrhage, hydrocephalus or extra-axial fluid collection.Mild generalized brain atrophy is present with mild periventricular and deep white matter chronic microvascular ische bianca changes. No areas of brain edema or evidence of midline shift. Mucosal thickening of both maxillary antra. The paranasal sinuses and mastoids are otherwise clear. T he calvarium is intact. IMPRESSION: No acute intracranial abnormality.
[2021-07-20] MEDS ORDERED: ALBUTEROL INHALER 60 PUFF/8 GM IH ONE (11:35)
--- NOTE | 2021-07-20 12:17 | EDPHYS ---
Physician Documentation [facility] Name: Jair Jasso Age: 81 yrs Sex: Male : 1940 Arrival Date: 07/20/2021 Time: 10:25 Bed 18 Private MD: ED Physician Gareth Riggins HPI: 07/20 10:49 This 81 yrs old Male presents to ER via EMS with complaints of laceration to pm1 face. 10:49 The patient or guardian reports a laceration, 6 cm(s), clean. The complaints affect the pm1 The complaints affect the middle aspect of left eyebrow, outer aspect of left eyebrow and left rastafari. Context of injury: The problem was sustained at home, resulted from Patient tripped and fell against a wall resulting in laceration to left side of face. Onset: The symptoms/episode began/occurred just prior to arrival. Associated signs and symptoms: Loss of consciousness: This patient did not experience any loss of consciousness. Pertinent negatives: headache, neck pain, weakness in extremities, generalized weakness. Severity of symptoms: in the emergency department the symptoms have improved. The patient has not experienced similar symptoms in the past. The patient has not recently seen a physician. Patient was walking with a glass of orange juice and he tripped resulting in a fall where he hit his head against the wall. Presenting to the ER with laceration to left eyebrow to left rastafari. No chest pain, shortness of breath, headache, neck pain, LOC. Historical: - Allergies: 10:29 PENICILLINS; es2 - Home Meds: 10:32 Allopurinol Oral [Active]; Lasix Oral [Active]; losartan Oral [Active]; es2 - Immunization history:: Adult Immunizations up to date, Client reports receiving the 2nd dose of the Covid vaccine, fully vaccinated, including booster. - Social history:: Smoking status: Patient/guardian denies using tobacco, the patient reports quitting approximately 16 years ago. ROS: 10:49 Constitutional: Negative for fever, chills, and weight loss, Eyes: Negative for injury, pm1 pain, redness, and discharge, Neck: Negative for injury, pain, and swelling, Cardiovascular: Negative for chest pain, palpitations, and edema, Respiratory: Negative for shortness of breath, cough, wheezing, and pleuritic chest pain, Abdomen/GI: Negative for abdominal pain, nausea, vomiting, diarrhea, and constipation, MS/Extremity: Negative for injury and deformity. 10:49 Neuro: Negative for headache, weakness, numbness, tingling, and seizure. 10:49 Skin: Positive for Laceration of left eyebrow to left rastafari. 10:49 All other systems are negative. Exam: 10:49 Constitutional: This is a well developed, well nourished patient who is awake, alert, pm1 and in no acute distress. 10:49 MS/ Extremity: Pulses equal, no cyanosis. Neurovascular intact. Full, normal range of motion. 10:49 Head/face: Noted is no obvious of injury or deformity except a laceration(s), 6 cm(s), of the middle aspect of left eyebrow, outer aspect of left eyebrow and left rastafari. 10:49 Eyes: Extraocular movements: no acute changes, Conjunctiva: no acute changes, no injection, Lids and lashes: no acute changes, no evidence of trauma. 10:49 ENT: Exam is negative for acute changes, Mouth: no acute changes, Lips: normal, moist, Oral mucosa: normal, pink and intact, moist. 10:49 Cardiovascular: Exam negative for acute changes, Rate: normal, Rhythm: regular, Pulses: no pulse deficits are appreciated. 10:49 Respiratory: Exam negative for acute changes, respiratory distress, shortness of breath. 10:49 Abdomen/GI: Exam negative for acute changes, Inspection: abdomen appears normal, Palpation: abdomen is soft and non-tender, in all quadrants. 10:49 Skin: Appearance: normal except for affected area, injury, laceration(s), the wound is approximately 6 cm(s), of the outer aspect of left eyebrow and middle aspect of left eyebrow and left rastafari, that can be described as clean, no foreign body, irregular. 10:49 Neuro: Exam negative for acute changes, Orientation: is normal, Mentation: is normal, Motor: moves all fours, Sensation: is normal, no obvious gross deficits. Vital Signs: 10:25 BP 145 / 56; Pulse 55; Resp 17; Temp 97.8; Pulse Ox 100% on R/A; es2 Miguel Coma Score: 10:49 Eye Response: spontaneous(4). Verbal Response: oriented(5). Motor Response: obeys pm1 commands(6). Total: 15. Laceration: 12:13 Wound Repair of 6cm ( 2.4in ) subcutaneous laceration to middle aspect of left eyebrow, pm1 outer aspect of left eyebrow and left rastafari. Irregularly shaped.. Distal neuro/vascular/tendon intact. Anesthesia: Local anesthetic administered with 3 mls of 1% lidocaine. Wound prep: Wound irrigation with saline by me, Wound explored extensively, Copious irrigation. Skin closed with 15 6-0 Silk using simple sutures and sterile technique. Skin closed with thin layer Adhesive skin closure using Dermabond. Patient tolerated well. MDM: 10:27 Patient medically screened. pm1 10:49 Differential diagnosis: Contusion of Laceration of Intracranial bleed- Concussion pm1 without LOC. 12:13 Data reviewed: vital signs. Data interpreted: Pulse oximetry: on room air is 100 %. pm1 Interpretation: normal. Counseling: I had a detailed discussion with the patient and/or guardian regarding: the historical points, exam findings, and any diagnostic results supporting the discharge/admit diagnosis, radiology results, the need for outpatient follow up, to return to the emergency department if symptoms worsen or persist or if there are any questions or concerns that arise at home. 07/20 10:29 Order name: CT Head Brain wo Cont; Complete Time: 12:13 pm1 07/20 10:29 Order name: Dermabond; Complete Time: 10:38 pm1 07/20 10:29 Order name: Dressing - Wound; Complete Time: 12:07 pm1 07/20 10:29 Order name: Gloves, Sterile; Complete Time: 10:38 pm1 07/20 10:29 Order name: Prolene, Sutures; Complete Time: 10:47 pm1 07/20 10:29 Order name: Setup Suture Tray; Complete Time: 10:38 pm1 Administered Medications: 10:47 Drug: Tetanus-Diphtheria Toxoid Adult 0.5 ml {Art Sales Consultant: [employer]. Exp: ch5 12/27/2022. Lot #: [id number]. } Route: IM; Site: right deltoid; 11:30 Drug: Albuterol HFA Inhaler 2 puffs Route: Inhalation; [facility] 11:47 Drug: Lidocaine (1 %) 5 ml Volume: 5 ml; Route: Infiltration; [facility] Disposition: 07/21 07:02 Co-signature as Attending Physician, Gareth Riggins MD I agree with the assessment and rn plan of care. Attestation: The patient's history, exam findings, diagnostics, and a summary of any interventions or procedures was reviewed in detail with Geovanny Powell NP. Disposition Summary: 07/20/21 12:17 Discharge Ordered Location: Home pm1 Problem: new pm1 Symptoms: have improved pm1 Condition: Stable pm1 Diagnosis - Laceration without foreign body of other part of head pm1 - Unspecified injury of head, initial encounter pm1 - Fall on same level from slipping, tripping and stumbling with subsequent striking pm1 against furniture, initial encounter Followup: pm1 - With: Emergency Department - When: As needed - Reason: Worsening of condition Followup: pm1 - With: Private Physician - When: 6-7 days - Reason: Recheck today's complaints, Continuance of care, Staple/Suture removal, Re-evaluation by your physician Discharge Instructions: - Discharge Summary Sheet pm1 - Head Injury, Adult pm1 - Fall Prevention in the Home, Adult pm1 - Facial Laceration pm1 - Sutures, [place], or Adhesive Wound Closure pm1 Forms: - Medication Reconciliation Form pm1 - Thank You Letter pm1 - Antibiotic Education pm1 - Prescription Opioid Use pm1 Signatures: Dispatcher [employer] EDMS Gareth Riggins MD MD rn Marinas, Patrick, NP DATA DEVELOPER pm1 Asher Oliva RN RN ch5 Adrienne Amezcua RN RN es2 Corrections: (The following items were deleted from the chart) 07/20 10:33 10:32 PMHx: CAD; es2 es2 10: 10:32 PMHx: CHF; es2 es2 10: 10:32 PMHx: COPD; es2 es2 10: 10:32 PMHx: High Cholesterol; es2 es2 10: 10:32 PMHx: Myocardial infarction; es2 es2 10:33 10:32 PMHx: AAA; es2 es2 10: 10:32 PMHx: Pacemaker; es2 es2 10: 10:32 PMHx: enlarged prostate; es2 es2
--- NOTE | 2021-07-20 12:17 | ER ---
Nurse's Notes [facility] Name: Jair Jasso Age: 81 yrs Sex: Male : 1940 Arrival Date: 07/20/2021 Time: 10:25 Bed 18 Private MD: Diagnosis: Laceration without foreign body of other part of head;Unspecified injury of head, initial encounter;Fall on same level from slipping, tripping and stumbling with subsequent striking against furniture, initial encounter Presentation: 07/20 10:25 Chief complaint: EMS states: Pt lost balance, fell and hit head on the wall. No blood es2 thinners, Denies LOC. No active bleeding. Pt denies pain to neck, back, and head. Coronavirus screen: Vaccine status: Patient reports receiving the 2nd dose of the covid vaccine. Has had 2 doses of Moderna and Booster. Ebola Screen: Patient negative for fever greater than or equal to 101.5 degrees Fahrenheit, and additional compatible Ebola Virus Disease symptoms Patient denies exposure to infectious person. Patient denies travel to an Ebola-affected area in the 21 days before illness onset. No symptoms or risks identified at this time. Initial Sepsis Screen: Does the patient meet any 2 criteria? No. Patient's initial sepsis screen is negative. Does the patient have a suspected source of infection? No. Patient's initial sepsis screen is negative. Risk Assessment: Do you want to hurt yourself or someone else? Patient reports no desire to harm self or others. Onset of symptoms was July 20, 2021. 10:25 Method Of Arrival: EMS: [facility] es2 10:25 Acuity: SILVIA 3 es2 Triage Assessment: 10:30 General: Appears well developed, well nourished, Behavior is calm, cooperative, es2 appropriate for age. Pain: Denies pain. EENT: No signs and/or symptoms were reported regarding the EENT system. Neuro: Level of Consciousness is awake, alert, obeys commands, Oriented to person, place, time, situation, Appropriate for age Speech is normal. Cardiovascular: Capillary refill < 3 seconds Patient's skin is warm and dry. Respiratory: Airway is patent Trachea midline Respiratory effort is even, Respiratory pattern is regular. GI: No signs and/or symptoms were reported involving the gastrointestinal system. : No signs and/or symptoms were reported regarding the genitourinary system. Derm: Wound noted above L eye. Musculoskeletal: Capillary refill < 3 seconds. Injury Description: Laceration sustained to above L eye. Historical: - Allergies: 10:29 PENICILLINS; es2 - Home Meds: 10:32 Allopurinol Oral [Active]; Lasix Oral [Active]; losartan Oral [Active]; es2 - Immunization history:: Adult Immunizations up to date, Client reports receiving the 2nd dose of the Covid vaccine, fully vaccinated, including booster. - Social history:: Smoking status: Patient/guardian denies using tobacco, the patient reports quitting approximately 16 years ago. Screenin:31 Abuse screen: Denies threats or abuse. Denies injuries from another. Nutritional es2 screening: No deficits noted. Tuberculosis screening: No symptoms or risk factors identified. Fall Risk Fall in past 12 months (25 points). Mental Status- Oriented to own ability (0 pts). Assessment: 12:54 Reassessment: Patient appears in no apparent distress at this time. No changes from tw2 previously documented assessment. Patient and/or family updated on plan of care and expected duration. Pain level reassessed. Patient is alert, oriented x 3, equal unlabored respirations, skin warm/dry/pink. Vital Signs: 10:25 BP 145 / 56; Pulse 55; Resp 17; Temp 97.8; Pulse Ox 100% on R/A; es2 [place] Coma Score: 10:49 Eye Response: spontaneous(4). Verbal Response: oriented(5). Motor Response: obeys pm1 commands(6). Total: 15. ED Course: 10:25 Patient arrived in ED. es2 10:25 Adrienne Amezcua RN is Primary Nurse. es2 10:27 Geovanny Powell NP is PHCP. pm1 10:27 Gareth Riggins MD is Attending Physician. pm1 10:29 Triage completed. es2 10:32 Patient has correct armband on for positive identification. Bed in low position. Call es2 light in reach. Side rails up X2. 10:32 Arm band placed on. es2 10:56 CT Head Brain wo Cont In Process Unspecified. EDMS 12:54 No provider procedures requiring assistance completed. Patient did not have IV access tw2 during this emergency room visit. Administered Medications: 10:47 Drug: Tetanus-Diphtheria Toxoid Adult 0.5 ml {Dermatology Nurse Practitioner: [employer]. Exp: ch5 12/27/2022. Lot #: [id number]. } Route: IM; Site: right deltoid; 11:30 Drug: Albuterol HFA Inhaler 2 puffs Route: Inhalation; 5 11:47 Drug: Lidocaine (1 %) 5 ml Volume: 5 ml; Route: Infiltration; 5 Outcome: 12:17 Discharge ordered by MD. pm1 12:54 Discharged to home via wheelchair, with family. tw2 12:54 Condition: stable 12:54 Discharge instructions given to patient, Instructed on discharge instructions, follow up and referral plans. safety practices, wound care. 12:54 Patient left the ED. tw2 Signatures: Dispatcher [employer] EDMS Geovanny Powell NP NATIONAL EXPANSION RECRUITER pm1 Kiah Shields RN RN tw2 Asher Oliva RN RN ch5 Ardienne Amezcua RN RN es2 Corrections: (The following items were deleted from the chart) 10:33 10:32 PMHx: CAD; es2 es2 10:33 10:32 PMHx: CHF; es2 es2 10:33 10:32 PMHx: COPD; es2 es2 10:33 10:32 PMHx: High Cholesterol; es2 es2 10:33 10:32 PMHx: Myocardial infarction; es2 es2 10:33 10:32 PMHx: AAA; es2 es2 10:33 10:32 PMHx: Pacemaker; es2 es2 10:33 10:32 PMHx: enlarged prostate; es2 es2
[2021-07-20 12:59] VITALS: BP 145/56; TEMP 97.8; O2SAT 100
== END 2021-07-20 12:54 | disposition home or self-care (01) ==
LOC: ER 10:22
PROC: 0JQ10ZZ Repair Face Subcutaneous Tissue and Fascia, Open Approach (ICD-10-PCS; principal; 2021-07-20)
DX: S01.81XA Laceration without foreign body of other part of head, initial encounter (principal); W01.198A Fall on same level from slipping, tripping and stumbling with subsequent striking against other object, initial encounter; Y93.89 Activity, other specified; Y92.018 Other place in single-family (private) house as the place of occurrence of the external cause; Z23 Encounter for immunization
CPT/HCPCS: 70450; 90471; 90714; 99284

== ENCOUNTER 2022-02-16 09:15 | Emergency (ER) | payer OTHER ==
--- OUTSIDE RECORDS SUMMARY | 2022-02-16 09:18 | XMS REPORT | Continuity of Care Document ---
:1940 Author Organization [facility] t Address [address] [place] [address] Dr. Armando[address] [place] [address] Care Team Providers Name Role Phone Nikkie FORTUNE Primary Care Physician Unavailable Hematpour Attending Clinician Unavailable PRISCILLA, A Attending Clinician Unavailable Gramm AGUSTIN, A Attending Clinician DAVIE Attending Clinician Unavailable SURENDRA WINCHESTER Attending Clinician Unavailable RONAL Attending Clinician Unavailable Mitchell BHAKTA Attending Clinician Unavailable ASHLIE Attending Clinician Unavailable MD Abimbola DAILEY Attending Clinician Unavailable Ronal OLVERA Attending Clinician DR TYSON Attending Clinician Unavailable DAVIE Admitting Clinician Unavailable MD ELMER BRODERICK Admitting Clinician Unavailable DR TYSON Admitting Clinician Unavailable Payers Payer Name Policy Type Policy Number Effective Date Expiration Date Jose HERRING I [id number] 2020 00:00:00 Problems Condition Condition Condition Status Onset Resolution Last Treating Co mments Source Name Details Category Date Date Treatment Clinician Date Elbow Elbow Disease Active NPI:183 pain, pain, 9-17 [id number] right right 00:00: 00 Allergies, Adverse Reactions, Alerts Allergy Allergy Status Severity Reaction(s) Onset Inactive Treating Comm ents Source Name Type Date Date Clinician Penicill DA Active MO 2019- [facility] ins 2 Clear 00:00: Bower 00 [facility] Penicill DA Active MO HIVES [facility] ins 11-23 Clear 00:00: Bower 00 [facility] Penicill Propensi Active Hives NPI:18 3 in ty to 06-28 [id number] adverse 00:00: reaction 00 s PENICILL DRUG Active Hives NPI:183 IN INGREDI 06-28 [id number] 00:00: 00 penicill DA Active U 2008-0 [facility] in V 10-14 Clear 00:00: Bower 00 [facility] No Known DA Active U 2008-0 [facility] Contrast 1 Clear Allergie 00:00: Bower s 00 [facility] No Known DA Active U 2008-0 [facility] Food 10-14 Clear Allergie 00:00: Bower s 00 [facility] No Known DA Active U 2008-0 [facility] Other 10-14 Clear Allergie 00:00: Bower s 00 [facility] PENICILL DA Active U RASH, 2007-0 [facility] IN SWELLING 10-14 Clear 00:00: Bower 00 [facility] Social History Social Habit Start Date Stop Date Quantity Comments Source History SDOH NPI:[id number] Alcohol Frequency History SDOH NPI:[id number] 81 Alcohol Std Drinks History SDOH NPI:[id number] 81 Alcohol Binge Exposure to Not sure NPI:[id number] 1 SARS-CoV-2 (event) Alcohol intake 2021-07-15 2021-07-15 .14 /d NPI:[id number] 00:00:00 00:00:00 Tobacco use and 2016-04-24 2016-04-24 Never used NPI:[id number] 08736 exposure 00:00:00 00:00:00 Alcohol Comment 2016-01-24 2016-01-24 Approx. 1-2 NPI:1831 [id number] 00:00:00 00:00:00 juli daily History of tobacco 2004-10-12 Smoker NPI:18 [id number] use 00:00:00 Sex [birth year] At [birth year] NPI:[id number] 25168 00:00:00 00:00:00 Smoking Status Start Date Stop Date Source Former smoker 2016-04-24 00:00:00 2016-04-24 00:00:00 NPI:1831 [id number] Medications Ordered Filled Start Stop Current Ordering Indication Dosage Frequency Signature Comments Components Source Medication Medication Date Date Medication? Clinician (SIG) Name Name finasteride Yes [id number] 5mg Take 1 NPI:183 5 mg tablet 1-03 tablet by 131 [id number] 00:00: mouth 00 daily. omega-3 2020-10 Yes 1g Take 1 g NPI:18 3 fatty 0-04 by mouth [id number] acids-vitam 15:01: daily. in E (FISH 41 OIL) 1,000 mg capsule CALCIUM 2020-10 Yes Take by NPI:18 3 PHOSPHATE 0-04 mouth. [id number] DIBAS/VIT 15:01: D3 (VITAMIN 41 D, WITH CALCIUM, ORAL) NITROGLYCER 2020-[address] NPI:1 83 IN 0-04 under the [id number] (NITROQUICK 15:01: tongue. SL) 41 omega-3 2020-10 Yes 1g Take 1 g NPI:18 3 fatty 0-04 by mouth [id number] acids-vitam 15:01: daily. in E (FISH 41 OIL) 1,000 mg capsule CALCIUM 2020-10 Yes Take by NPI:18 3 PHOSPHATE 0-04 mouth. [id number] DIBAS/VIT 15:01: D3 (VITAMIN 41 D, WITH CALCIUM, ORAL) NITROGLYCER 2020-[address] NPI:1 83 IN 0-04 under the [id number] (NITROQUICK 15:01: tongue. SL) 41 omega-3 2020-10 Yes 1g Take 1 g NPI:18 3 fatty 0-04 by mouth [id number] acids-vitam 15:01: daily. in E (FISH 41 OIL) 1,000 mg capsule CALCIUM 2020-10 Yes Take by NPI:18 3 PHOSPHATE 0-04 mouth. [id number] DIBAS/VIT 15:01: D3 (VITAMIN 41 D, WITH CALCIUM, ORAL) NITROGLYCER 2020-[address] NPI:1 83 IN 0-04 under the [id number] (NITROQUICK 15:01: tongue. SL) 41 finasteride 2020-10 Yes [id number] 5mg Take 1 NPI:183 5 mg tablet 0-04 tablet by 131 [id number] 00:00: mouth 00 daily. tamsulosin 2020-10 Yes [id number] .4mg Take 1 NPI:183 0.4 mg 24 0-04 capsule by 1318 781 hr capsule 00:00: mouth at 00 bedtime. finasteride 2020-10 Yes [id number] 5mg Take 1 NPI:183 5 mg tablet 0-04 tablet by 131 8781 00:00: mouth 00 daily. tamsulosin 2020-10 Yes [id number] .4mg Take 1 NPI:183 0.4 mg 24 0-04 capsule by 1318 781 hr capsule 00:00: mouth at 00 bedtime. finasteride 2020-10 Yes [id number] 5mg Take 1 NPI:183 5 mg tablet 0-04 tablet by 131 8781 00:00: mouth 00 daily. tamsulosin 2020-10 Yes [id number] .4mg Take 1 NPI:183 0.4 mg 24 0-04 capsule by 1318 781 hr capsule 00:00: mouth at 00 bedtime. finasteride 0 Yes [id number] 5mg Take 1 NPI:183 5 mg tablet 9-24 tablet by 131 8781 00:00: mouth 00 daily. tamsulosin Yes [id number] .4mg Take 1 NPI:183 0.4 mg 24 9-24 capsule by 1318 781 hr capsule 00:00: mouth at 00 bedtime. finasteride Yes [id number] 5mg Take 1 NPI:183 5 mg tablet 9-24 tablet by 131 [id number] 00:00: mouth 00 daily. tamsulosin Yes [id number] .4mg Take 1 NPI:183 0.4 mg 24 9-24 capsule by 1318 781 hr capsule 00:00: mouth at 00 bedtime. tamsulosin 0 Yes [id number] .4mg Take 1 NPI:183 0.4 mg 24 9-24 capsule by 1318 781 hr capsule 00:00: mouth at 00 bedtime. finasteride 0 2022- No [id number] 5mg Take 1 NPI:183 5 mg tablet 9-24 01-03 tablet by 13 [id number] 00:00: 00:00 mouth 00 :00 daily. DICLOFENAC 2017-0 Yes TAKE 1 NPI:1 83 75 mg EC 4-11 TABLET BY [id number] 1 tablet 00:00: MOUTH 00 TWICE DAILY WITH MEALS DICLOFENAC Yes TAKE 1 NPI:1 83 75 mg EC 4-11 TABLET BY [id number] 1 tablet 00:00: MOUTH 00 TWICE DAILY WITH MEALS DICLOFENAC Yes TAKE 1 NPI:1 83 75 mg EC 4-11 TABLET BY [id number] 1 tablet 00:00: MOUTH 00 TWICE DAILY WITH MEALS DICLOFENAC Yes TAKE 1 NPI:1 83 75 mg EC 3-16 TABLET BY [id number] 1 tablet 00:00: MOUTH 00 TWICE DAILY WITH MEALS DICLOFENAC Yes TAKE 1 NPI:1 83 75 mg EC 3-16 TABLET BY [id number] 1 tablet 00:00: MOUTH 00 TWICE DAILY WITH MEALS DICLOFENAC Yes TAKE 1 NPI:1 83 75 mg EC 3-16 TABLET BY [id number] 1 tablet 00:00: MOUTH 00 TWICE DAILY WITH MEALS DICLOFENAC Yes TAKE 1 NPI:1 83 75 mg EC 3-15 TABLET BY [id number] 1 tablet 00:00: MOUTH 00 TWICE DAILY WITH MEALS DICLOFENAC Yes TAKE 1 NPI:1 83 75 mg EC 3-15 TABLET BY [id number] 1 tablet 00:00: MOUTH 00 TWICE DAILY WITH MEALS DICLOFENAC Yes TAKE 1 NPI:1 83 75 mg EC 3-15 TABLET BY [id number] 1 tablet 00:00: MOUTH 00 TWICE DAILY WITH MEALS ALBUTEROL 2015-10 Yes Inhale. NPI:1 83 INHALE 2- [id number] 15:42: 31 ALBUTEROL 2015-10 Yes Inhale. NPI:1 83 INHALE 2 [id number] 15:42: 31 ALBUTEROL 2015-10 Yes Inhale. NPI:1 83 INHALE 2-21 [id number] 15:42: 31 BREO 2015-10 Yes USE 1 NPI:183 ELLIPTA 2-14 INHALATION [id number] 1 200-25 00:00: PO QD mcg/dose 00 DsDv BREO 2015-10 Yes USE 1 NPI:183 ELLIPTA 2-14 INHALATION [id number] 1 200-25 00:00: PO QD mcg/dose 00 DsDv BREO 2015-10 Yes USE 1 NPI:183 ELLIPTA 2-14 INHALATION [id number] 1 200-25 00:00: PO QD mcg/dose 00 DsDv meloxicam 2016-0 Yes 7.5mg Take 7.5 NPI :183 (MOBIC) 7.5 7-14 mg by [id number] mg tablet 08:55: mouth 06 daily. meloxicam 2015-0 Yes 7.5mg Take 7.5 NPI :183 (MOBIC) 7.5 7-14 mg by [id number] mg tablet 08:55: mouth 06 daily. meloxicam Yes 7.5mg Take 7.5 NPI :183 (MOBIC) 7.5 7-14 mg by [id number] mg tablet 08:55: mouth 06 daily. HYDROcodone Yes 1{tbl} Take 1 Tab NPI:183 -acetaminop 7-14 by mouth 2 13 85989 hen (Drillinginfo 08:52: (two) 5) 5-325 mg 21 times tablet daily. HYDROcodone Yes 1{tbl} Take 1 Tab NPI:183 -acetaminop 7-14 by mouth 2 13 50835 hen ([employer]illing[employer] 08:52: (two) 5) 5-325 mg 21 times tablet daily. HYDROcodone Yes 1{tbl} Take 1 Tab NPI:183 -acetaminop 7-14 by mouth 2 13 96561 hen ([employer]illing[employer] 08:52: (two) 5) 5-325 mg 21 times tablet daily. 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 00 furosemide Yes 40mg Take 40 mg N PI:183 (LASIX) 20 - by mouth 61940 81 mg tablet 00:00: daily. 00 furosemide Yes 40mg Take 40 mg N PI:183 (LASIX) 20 -04 by mouth 78897 81 mg tablet 00:00: daily. 00 allopurinol 2015-0 Yes 100mg Take 100 N PI:183 (ZYLOPRIM) 9-03 mg by [id number] 100 mg 00:00: mouth 2 tablet 00 (two) times daily. colchicine 2015-0 Yes .6mg Take 0.6 NPI :183 (COLCRYS) 9-03 mg by [id number] 0.6 mg 00:00: mouth tablet 00 daily. allopurinol 2015-0 Yes 100mg Take 100 N PI:183 (ZYLOPRIM) 9-03 mg by [id number] 100 mg 00:00: mouth 2 tablet 00 (two) times daily. colchicine 2015-0 Yes .6mg Take 0.6 NPI :183 (COLCRYS) 9-03 mg by [id number] 0.6 mg 00:00: mouth tablet 00 daily. allopurinol 2014-0 Yes 100mg Take 100 N PI:183 (ZYLOPRIM) 9-03 mg by [id number] 100 mg 00:00: mouth 2 tablet 00 (two) times daily. colchicine 2015-0 Yes .6mg Take 0.6 NPI :183 (COLCRYS) 9-03 mg by [id number] 0.6 mg 00:00: mouth tablet 00 daily. polyethylen 2015-0 Yes 17g Take 17 g N PI:183 e glycol 8-27 by mouth [id number] (GLYCOLAX) 00:00: daily. 17 00 gram/dose powder polyethylen 2015-0 Yes 17g Take 17 g N PI:183 e glycol 8-27 by mouth [id number] (GLYCOLAX) 00:00: daily. 17 00 gram/dose powder polyethylen 2015-0 Yes 17g Take 17 g N PI:183 e glycol 8-27 by mouth [id number] (GLYCOLAX) 00:00: daily. 17 00 gram/dose powder lovastatin 2015-0 Yes 20mg Take 20 mg N PI:183 (MEVACOR) 8-15 by mouth [id number] 1 20 mg 00:00: at tablet 00 bedtime. lovastatin 2015-0 Yes 20mg Take 20 mg N PI:183 (MEVACOR) 8-15 by mouth [id number] 1 20 mg 00:00: at tablet 00 bedtime. lovastatin 2015-0 Yes 20mg Take 20 mg N PI:183 (MEVACOR) 8-15 by mouth [id number] 1 20 mg 00:00: at tablet 00 bedtime. terazosin 2014-0 Yes 10mg Take 10 mg RECONCILIATION MACHINE OPERATOR I:183 (HYTRIN) 10 8 by mouth 1318 781 mg capsule 00:00: at 00 bedtime. terazosin 2014-0 Yes 10mg Take 10 mg RECONCILIATION MACHINE OPERATOR I:183 (HYTRIN) 10 8 by mouth 1318 781 mg capsule 00:00: at 00 bedtime. terazosin 2014-0 Yes 10mg Take 10 mg RECONCILIATION MACHINE OPERATOR I:183 (HYTRIN) 10 8 by mouth 1318 781 mg capsule 00:00: at 00 bedtime. acetaminoph Yes NPI:18 3 en-codeine 7-31 [id number] (TYLENOL 00:00: #3) 300-30 00 mg tablet acetaminoph Yes NPI:18 3 en-codeine 7-31 [id number] (TYLENOL 00:00: #3) 300-30 00 mg tablet acetaminoph Yes NPI:18 3 en-codeine 7-31 [id number] (TYLENOL 00:00: #3) 300-30 00 mg tablet ranitidine Yes 150mg Take 150 RECONCILIATION MACHINE OPERATOR I:183 (ZANTAC) 6-29 mg by [id number] 150 mg 00:00: mouth 2 tablet 00 (two) times daily. ranitidine Yes 150mg Take 150 RECONCILIATION MACHINE OPERATOR I:183 (ZANTAC) 6-29 mg by [id number] 150 mg 00:00: mouth 2 tablet 00 (two) times daily. ranitidine Yes 150mg Take 150 RECONCILIATION MACHINE OPERATOR I:183 (ZANTAC) 6-29 mg by [id number] 150 mg 00:00: mouth 2 tablet 00 (two) times daily. Immunizations Ordered Immunization Filled Immunization Date Status Commen ts Source Name Name SARS-COV-2 COVID-19 2021-07-15 Completed NPI:1 [id number] PFIZER VACCINE 00:00:00 SARS-COV-2 COVID-19 2021-07-15 Completed NPI:1 [id number] PFIZER VACCINE 00:00:00 SARS-COV-2 COVID-19 2021-07-15 Completed NPI:1 [id number] PFIZER VACCINE 00:00:00 SARS-COV-2 COVID-19 2021-01-17 Completed NPI:1 [id number] PFIZER VACCINE 00:00:00 SARS-COV-2 COVID-19 2021-01-17 Completed NPI:1 [id number] PFIZER VACCINE 00:00:00 SARS-COV-2 COVID-19 2021-01-17 Completed NPI:1 [id number] PFIZER VACCINE 00:00:00 SARS-COV-2 COVID-19 2020-12-26 Completed NPI:1 [id number] PFIZER VACCINE 00:00:00 SARS-COV-2 COVID-19 2020-12-26 Completed NPI:1 [id number] PFIZER VACCINE 00:00:00 SARS-COV-2 COVID-19 2020-12-26 Completed NPI:1 [id number] PFIZER VACCINE 00:00:00 Vital Signs Vital Name Observation Time Observation Value Comments Source Systolic blood pressure 2021-07-15 20:01:00 113 mm[Hg] Diastolic blood 2021-07-15 20:01:00 66 mm[Hg] NPI:1 [id number] pressure Heart rate 2021-07-15 20:01:00 86 /min NPI:1831 [id number] Body temperature 2021-07-15 20:01:00 35.5 Julia Respiratory rate 2021-07-15 20:01:00 18 /min Body height 2021-07-15 20:01:00 175.3 cm NPI:1831 [id number] Body weight 2021-07-15 20:01:00 93.35 kg NPI:1831 [id number] BMI 2021-07-15 20:01:00 30.39 kg/m2 NPI:1831 [id number] Oxygen saturation in 2021-07-15 20:01:00 97 /min Arterial blood by Pulse oximetry Procedures Procedure Date / Time Performed Performing Clinician Sourc e POCT URINALYSIS AUTO 2021-07-15 20:05:00 Ena Chapman NPI:580 [id number] Encounters Start End Encounter Admission Attending Care Care Encounter Source Date/Time Date/Time Type Type Clinicians Facility Department ID 2019-11-24 Inpatient Hematpour, [facility] OUTD [id number] [facility] 14:35:00 Khashayar [id number] [facility] 2019-11-22 Inpatient Hematpour, [facility] OUTD [id number] [facility] 09:30:00 Khashayar [id number] [facility] 2022-07-14 2022-07-14 [facility] [id number] NPI:183 13:00:00 13:00:00 ENA [id number] 1 2021-10-14 2021-10-14 Refill [facility] [id number] NPI:183 00:00:00 00:00:00 Ena CAM [id number] [id number] [employer] 4.2.7.2.686 PROFESSIO [id number] 2021-09-18 2021-09-18 Outpatient [facility] [id number] [address] [place] [address] 00:00:00 00:00:[address] [place] [address] 2021-07-16 2021-07-16 Telephone [facility] [id number] NPI:183 00:00:00 00:00:00 Ena Cam [id number] [id number] Steph 4.2.7.2.686 Professio [id number] [address] 2021-07-15 2021-07-15 Outpatient R GRAMM, [facility] [id number] NPI:183 15:00:00 15:39:32 ENA [id number] 1 2021-07-15 2021-07-15 Office [facility] [id number] NPI:183 14:42:07 15:39:32 Visit Ena Cam 350.1.13.10 [id number] [place] 4.2.7.2.686 Professio [id number] [address] 2021-07-15 2021-07-15 Out[facility] [id number] -[id number] NPI:183 15:00:00 15:00:00 ENA [id number] 2021-07-15 2021-07-15 Outpatient R RANULFO, [facility] [id number] NPI:183 14:40:00 14:40:00 MARILEE [id number] 1 2021-07-10 2021-07-10 Outpatient R PRISCILLA, [facility] [id number] NPI:183 14:30:00 14:30:00 ENA [id number] 1 2021-07-10 2021-07-10 Outpatient R PRISCILLA, [facility] [id number] NPI:183 14:30:00 14:30:00 ENA [id number] 1 2021-05-27 2021-05-27 Outpatient R RONAL, [facility] [id number] NPI:183 11:30:00 11:30:00 FLACO [id number] 2021-05-27 2021-05-27 Outpatient R RONAL, [facility] [id number] NPI:183 11:30:00 11:30:00 FLACO [id number] 1 2021-02-05 2021-02-05 Outpatient [facility] [id number] [address] [place] [address] 00:00:00 00:00:00 CHARUDATTA 959 Met [facility] 2021-01-28 2021-01-28 Outpatient [facility] [id number] [place] [address] 00:00:00 00:00:00 CHARJONASTTA 083 Met [facility] 2021-01-17 2021-01-17 Outpatient R LIVIA, [facility] [id number] NPI:183 12:00:00 11:21:21 TOR [id number] 1 2020-12-26 2020-12-26 Outpatient R LIVIA, [facility] [id number] NPI:183 12:00:00 11:13:50 TOR [id number] 1 2020-12-19 2020-12-19 Outpatient R PRISCILLA, [facility] [id number] NPI:183 14:30:00 14:30:00 ENA [id number] 1 2020-12-19 2020-12-19 Outpatient R PRISCILLA, [facility] [id number] NPI:183 14:30:00 14:30:00 ENA [id number] 1 2020-09-19 2020-09-19 Outpatient R GRAMM, [facility] [id number] NPI:183 15:15:00 15:15:00 ENA [id number] 1 2020-09-19 2020-09-19 Outpatient R GRAMM, [facility] [id number] NPI:183 15:15:00 15:15:00 ENA [id number] 1 2020-09-12 2020-09-12 Outpatient R GRAMM, [facility] [id number] NPI:183 13:30:00 13:30:00 ENA [id number] 1 2020-09-12 2020-09-12 Outpatient R GRAMM, [facility] [id number] NPI:183 13:30:00 13:30:00 ENA [id number] 1 2020-08-29 2020-08-29 Outpatient R GRAMM, [facility] [id number] NPI:183 13:30:00 13:30:00 ENA [id number] 1 2020-08-29 2020-08-29 Outpatient R GRAMM, [facility] [id number] NPI:183 13:30:00 13:30:00 ENA [id number] 1 2020-07-25 2020-07-27 Inpatient [facility] [id number] [place] [address] 00:00:00 00:00:00 VINAYAK 810 Method i 2020-07-05 2020-07-05 [facility] [id number] 14:53:28 16:00:47 Visit Flaco Cam 350.1.13.10 [place] 4.2.7.2.686 [id number] [address] 2020-07-05 2020-07-05 Outpatient R ALZNIDHII, [facility] [id number] NPI:183 15:00:00 15:00:00 FLACO [id number] 2020-07-05 2020-07-05 Outpatient R ALZNIDHII, [facility] [id number] NPI:183 15:00:00 15:00:00 FLACO [id number] 1 2020-06-14 2020-06-14 Outpatient R ALZNIDHII [facility] [id number] NPI:183 11:00:00 11:00:00 [facility] [id number] 1 2020-06-14 2020-06-14 Outpatient Nikkie TOPETE, [facility] [id number] NPI:183 11:00:00 11:00:00 [facility] [id number] 1 2017-07-14 2017-07-14 Outpatient Batsheva [facility]HTA [facility] [id number] NPI:170 10:47:00 10:47:00 JORGE LUIS [id number] Results Test Description Test Time Test Comments Results Result Comments Source POCT URINALYSIS, INSTRUMENT 2021-07-15 20:05:00 Test Item Value Reference Range Interpretation Comme nts POCT U SP GRAV (test code = 3255) 1.015 mg/dl 1.005-1.025 POCT PH U (test code = 3254) 6.0 mg/dl 5-8 POCT U LEUK EST (test code = 3263) Negative Negative - Negative POCT U NIT (test code = 3262) Negative Negative - Negative POCT U PROT (test code = 3259) Negative Negative - Negative POCT U GLU (test code = 3256) Negative Negative - Negative POCT U KETONE (test code = 3258) Negative Negative - Negative POCT U UROBILI (test code = 3260) 0.2 mg/dl 0.2-1 POCT U BILI (test code = 3261) Negative Negative - Negative POCT U BLD (test code = 3257) Negative Negative - Negative POCT U COLOR (test code = 3266) yellow POCT U APPEAR (test code = 3267) clear NPI:[id number] (COVID-19) RNA [Presence] in Respiratory specimen by LESLY with probe [id number] 01:26:43 Test Item Value Reference Range Interpretation Comments SARS-CoV-2 (COVID-19) RNA Not detected Not-Detected [Presence] in Respiratory specimen by LESLY with probe detection (test code = 06714-6) PROTHROMBIN [id number] 13:38:00 Test Item Value Reference Range Interpretation Comments PROTHROMBIN TIME 11.7 SECONDS 9.3-12.9 N PATIENT (test code = PTP) INTERNATIONAL NORMAL 1.1 0.8-1.2 N TARGET RATIO (test code = INR BY IN DICATION INR) Indication INR1. Prophyl axis of venous thrombos is 2.0 - 3. 0 (orthopedic radha kelvin), Prophylaxis of venous thrombos is (other than hig h-risk surgery), Beatriz tment of Deep Vein Thrombosis/Pulm onary Embolism, Preve ntion of systemic emb olism - Tissue heart va lves, Acute Myocardia l Infarction (to prevent systemic embo lism), Valvular heart disease, Atri al Fibrillation, Bileaflet mecha nical valve in aortic position.2. Mec hanical prosthetic valv es (high risk), 2.5 - 3.5 Presence of Lupus Anticoagu lant or Antiphospholi pid Antibodies, Pre vention of systemic e mbolism - Acute Myocard ial Infarction (t o prevent recurre nt infarct). BASIC METABOLIC [id number] 13:33:00 Test Item Value Reference Range Interpretation [...] 8.0-10.5 N CA) - XR CHEST 1 [id number] 13:30:00 FAX: Maya Melendeznellynelson [phone] [place]: St: REG Name: MARIA ALVARADO [facility] : 1940 Age/S: 79/M [address] [place] [address] Bl Unit#: [id number] [place]: [place] [address] Phys: Tania Dozier MD Acct: [id number] Dis Date: Status: [place] [facility] [place]ONE #: [phone] Exam Date: 11/24/2019 1327 FAX #: [phone] Reason: PRE PROCEDURE EXAMS: CPT CODE: [id number] XR CHEST 1 V [id number] Exam: Chest radiograph frontal view Indication: 79-year-old male, preprocedure. Comparison: None. Technique: Chest radiograph frontal view. Findings: The cardiomediastinal silhouette is within normal limits. There are multiple median sternotomy wires. There is a left pectoral implantable cardiac device. There is no focal airspace consolidation. No pleural effusion. No pneumothorax. No acute osseous abnormality. Impression: No acute cardiopulmonary disease. SL: [id number] at 1330 Reported and signed by: Jared West M.D. CC: Tania Dozier MD Technologist: RT Marybeth(Nikkie) Trnscrd Date/Time/By: 11/24/2019 (5710) : By: [email or web address] [facility] Print D/T: S: 11/24/2019 (4998) PAGE 1 Signed ReportBASIC METABOLIC [id number] 13:24:00 Test Item Value Reference Range Interpretation [...] CA) 9.3 mg/dL 8.0-10.5 N CBC W/AUTO [id number] 13:13:00 Test Item Value Reference Range Interpretation [...]
[2022-02-16] MEDS ORDERED: MAGNESIUM SULFATE 1 gm IVPB 1 GM/100 ML BAG IV ONE (09:55)
[2022-02-16] MEDS ORDERED: IPRATROPIUM BROM 0.5MG/2.5ML ONE (09:55)
[2022-02-16] MEDS ORDERED: ALBUTEROL 2.5 MG/3 ML NEB SOL ONE (09:55)
[2022-02-16] MEDS ORDERED: METHYLPREDNISOLONE 125 MG INJ ONE (09:55)
[2022-02-16 10:14] LABS: Absolute Lymphocytes (CBC) 1.6 K/uL (0.7-4.9); Hematocrit 39.8 % (39.6-49.0); Lymphocytes % 18.7 % (15.3-44.8); MPV 7.9 fL (7.6-11.3); RBC Red Blood Cell Count 4.29 M/uL (4.33-5.43)
[2022-02-16 10:29] LABS: Albumin 3.5 g/dL (3.4-5.0); Bilirubin Direct 0.2 mg/dL (0-0.2); Bilirubin Total 0.6 mg/dL (0.2-1.0); Potassium 4.3 mmol/L (3.5-5.1); Protein, Total 6.5 g/dL (6.4-8.2); Troponin High Sensitivity 22.8 pg/mL (<58.9)
[2022-02-16 10:41] LABS: SARS-COV-2 RT PCR NEGATIVE (NEGATIVE)
--- NOTE | 2022-02-16 10:47 | RAD REPORT ---
EXAM DESCRIPTION: Evans Single View02/16/2022 10:32 am CLINICAL HISTORY: Cough COMPARISON: 2020 FINDINGS: The lungs appear clear of acute infiltrate. The heart is mildly enlarged. Postsurgical changes involve the chest. Pacemaker leads place. 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
--- NOTE | 2022-02-16 12:19 | EDPHYS ---
Physician Documentation [facility] Name: Jair Jasso Age: 81 yrs Sex: Male : 1940 Arrival Date: 02/16/2022 Time: 09:18 Bed 12 Private MD: ED Physician Melchor Reeves HPI: 02/16 09:42 This 81 yrs old Male presents to ER via Wheelchair with complaints of Wheezing. pm1 09:42 The patient presents to the emergency department with wheezing, Current therapy: pm1 steroid inhaler, Combivent, the patient was reported to have audible wheezing. Onset: The symptoms/episode began/occurred 2 week(s) ago. Modifying factors: The symptoms are alleviated by inhaler, the symptoms are aggravated by nothing. Associated signs and symptoms: Pertinent positives: Thickening of his usual baseline sputum, shortness of breath, Pertinent negatives: chest pain, fever. Severity of symptoms: in the emergency department the symptoms are worse Pain is currently a 0 / 10. The patient has not recently seen a physician. Historical: - Allergies: 09:28 PENICILLINS; ph - Home Meds: 09:28 Allopurinol Oral [Active]; Lasix Oral [Active]; losartan Oral [Active]; ph - PMHx: 09:58 Hypertensive disorder; AAA; COPD; CHF; ph - Immunization history:: Adult Immunizations up to date. - Social history:: Smoking status: Smoking status: Patient denies any tobacco usage or history of. ROS: 09:42 Constitutional: Negative for fever, chills, and weight loss, Cardiovascular: Negative pm1 for chest pain, palpitations, and edema. 09:42 Abdomen/GI: Negative for abdominal pain, nausea, vomiting, diarrhea, and constipation, Back: Negative for injury and pain, MS/Extremity: Negative for injury and deformity, Skin: Negative for injury, rash, and discoloration, Neuro: Negative for headache, weakness, numbness, tingling, and seizure. 09:42 Respiratory: Positive for cough, with clear sputum, shortness of breath, wheezing. 09:42 All other systems are negative. Exam: 09:42 Constitutional: This is a well developed, well nourished patient who is awake, alert, pm1 and in no acute distress. Head/Face: Normocephalic, atraumatic. 09:42 Back: No spinal tenderness. No costovertebral tenderness. Full range of motion. Skin: Warm, dry with normal turgor. Normal color with no rashes, no lesions, and no evidence of cellulitis. MS/ Extremity: Pulses equal, no cyanosis. Neurovascular intact. Full, normal range of motion. 09:42 Cardiovascular: Exam negative for acute changes, Rate: normal, Rhythm: regular, Pulses: no pulse deficits are appreciated, Heart sounds: normal, normal S1and S2. 09:42 Respiratory: Exam negative for acute changes, respiratory distress, shortness of breath, Breath sounds: wheezing: expiratory that is mild, is heard diffusely. 09:42 Abdomen/GI: Exam negative for acute changes, Inspection: abdomen appears normal, Palpation: abdomen is soft and non-tender, in all quadrants. 09:42 Neuro: Exam negative for acute changes, Orientation: is normal, Mentation: is normal, Motor: is normal, moves all fours. Vital Signs: 09:25 BP 122 / 88; Pulse 59; Resp 18; Temp 97.2; Pulse Ox 100% on R/A; Weight 89.36 kg; ph Height 5 ft. 8 in. (172.72 cm); 12:29 BP 123 / 64; Pulse 64; Resp 17; Pulse Ox 96% on R/A; Pain 0/10; ss 09:25 Body Mass Index 29.95 (89.36 kg, 172.72 cm) ph MDM: 09:31 Patient medically screened. pm1 09:37 Data reviewed: vital signs. Data interpreted: Pulse oximetry: on room air is 100 %. pm1 Interpretation: normal. 12:17 Counseling: I had a detailed discussion with the patient and/or guardian regarding: the pm1 historical points, exam findings, and any diagnostic results supporting the discharge/admit diagnosis, lab results, radiology results, the need for outpatient follow up, to return to the emergency department if symptoms worsen or persist or if there are any questions or concerns that arise at home. 02/16 09:42 Order name: COVID-19/FLU A+B (Document "Date of Onset" if Symptomatic); Complete Time: pm1 10:43 02/16 09:42 Order name: Basic Metabolic Panel; Complete Time: 10:37 pm1 02/16 09:42 Order name: CBC with Diff; Complete Time: 10:37 pm1 02/16 09:42 Order name: LFT's; Complete Time: 10:37 pm1 02/16 09:42 Order name: Magnesium; Complete Time: 10:37 pm1 02/16 09:42 Order name: NT PRO-BNP; Complete Time: 10:37 pm1 02/16 09:42 Order name: PT-INR; Complete Time: 10:37 pm1 02/16 09:42 Order name: Troponin HS; Complete Time: 10:37 pm1 02/16 09:42 Order name: XRAY Chest (1 view); Complete Time: 10:54 pm1 02/16 09:42 Order name: EKG; Complete Time: 09:42 pm1 02/16 09:42 Order name: Cardiac monitoring; Complete Time: 09:57 pm1 02/16 09:42 Order name: EKG - Nurse/Tech; Complete Time: 10:09 pm1 02/16 09:42 Order name: IV Saline Lock; Complete Time: 10:09 pm1 02/16 09:42 Order name: Labs collected and sent; Complete Time: 10:09 pm 05 09:42 Order name: O2 Per Protocol; Complete Time: 09:57 pm1 02/16 09:42 Order name: O2 Sat Monitoring; Complete Time: 09:57 pm1 Administered Medications: 10:00 Drug: SOLU-Medrol (methylPrednisoLONE) 125 mg Route: IVP; Site: right antecubital; ss 10:15 Follow up: Response: No adverse reaction ph 10:02 Drug: Magnesium Sulfate 1 grams Route: IVPB; Infused Over: 1 hrs; Site: right ss antecubital; 19:36 Follow up: Response: No adverse reaction; IV Status: Completed infusion; IV Intake: ph 1000ml 10:09 Drug: Albuterol - atroVENT (ipratropium) (3:1) (2.5 mg - 0.5 mg) 3 ml Route: Nebulizer; ss 10:15 Follow up: Response: No adverse reaction ph 12:27 Drug: Tussionex Pennkinetic ER (chlorpheniramine-hydrocodone) Suspension 5 ml Route: PO;ss 12:29 Follow up: Response: Medication administered at discharge. Disposition Summary: 02/16/22 12:19 Discharge Ordered Location: Home pm1 Problem: new pm1 Symptoms: have improved pm1 Condition: Stable pm1 Diagnosis - COPD/ Chronic obstructive pulmonary disease, unspecified pm1 Followup: pm1 - With: Emergency Department - When: As needed - Reason: Worsening of condition Followup: pm1 - With: Private Physician - When: 2 - 3 days - Reason: Recheck today's complaints, Continuance of care, Re-evaluation by your physician Discharge Instructions: - Discharge Summary Sheet pm1 - Chronic Obstructive Pulmonary Disease pm1 Forms: - Medication Reconciliation Form pm1 - Thank You Letter pm1 - Antibiotic Education pm1 - Prescription Opioid Use pm1 Prescriptions: - Combivent Respimat 20-100 mcg/actuation Inhalation mist - inhale 1 puff by INHALATION route 4 times per day As needed not to exceed 6 pm1 puffs in 24hrs; 1 Inhaler; Refills: 0, Product Selection Permitted - Prednisone 20 mg Oral Tablet - take 3 tablets by ORAL route once daily for 5 days; 15 tablet; Refills: 0, pm1 Product Selection Permitted - Zithromax Z-Shaquille 250 mg Oral Tablet - take 1 tablet by ORAL route as directed for 5 days Day 1 - take two (2) tablets pm1 one time. Day 2, 3, 4 , 5 take one (1) tablet once daily.; 6 tablet; Refills: 0, Product Selection Permitted - Guaifenesin AC 10-100 mg/5 mL Oral Liquid - take 10 milliliters by ORAL route every 4 hours As needed; 240 milliliter; pm1 Refills: 0, Product Selection Permitted Signatures: Dispatcher [employer] Analia Ramsey RN RN ss Hall, Patricia, RN RN ph Marinas, Patrick, NP NURSING SPECIALIST pm1
--- NOTE | 2022-02-16 12:19 | ER ---
Nurse's Notes [facility] Name: Jair Jasso Age: 81 yrs Sex: Male : 1940 Arrival Date: 02/16/2022 Time: 09:18 Bed 12 Private MD: Diagnosis: COPD/ Chronic obstructive pulmonary disease, unspecified Presentation: 02/16 09:25 Chief complaint: Patient states: Wheezing and increased SOB x 2 weeks, denies fever, ph Spo2 96% RA in triage, no respiratory distress noted. Coronavirus screen: Vaccine status: Patient reports receiving the 2nd dose of the covid vaccine. Ebola Screen: No symptoms or risks identified at this time. Initial Sepsis Screen: Does the patient meet any 2 criteria? No. Patient's initial sepsis screen is negative. Does the patient have a suspected source of infection? No. Patient's initial sepsis screen is negative. Risk Assessment: Do you want to hurt yourself or someone else? Patient reports no desire to harm self or others. Onset of symptoms was February 16, 2022. 09:25 Method Of Arrival: Wheelchair ph 09:25 Acuity: SILVIA 3 ph Triage Assessment: 09:55 General: Appears in no apparent distress. comfortable, Behavior is calm, cooperative, ph appropriate for age, Denies fever, feeling ill. Pain: Denies pain. Neuro: Level of Consciousness is awake, alert, obeys commands, Oriented to person, place, time, situation. Cardiovascular: Reports shortness of breath, Denies chest pain, Capillary refill < 3 seconds in bilateral fingers Patient's skin is warm and dry. Respiratory: Reports shortness of breath at rest cough that is Airway is patent Respiratory effort is even, unlabored, Respiratory pattern is regular, symmetrical, Onset: The symptoms/episode began/occurred x 2 weeks, the patient has mild shortness of breath. GI: No signs and/or symptoms were reported involving the gastrointestinal system. Derm: Skin is intact, is healthy with good turgor, Skin is pink, warm \\T\\ dry. Musculoskeletal: Circulation, motion, and sensation intact. Range of motion: intact in all extremities. Historical: - Allergies: 09:28 PENICILLINS; ph - Home Meds: 09:28 Allopurinol Oral [Active]; Lasix Oral [Active]; losartan Oral [Active]; ph - PMHx: 09:58 Hypertensive disorder; AAA; COPD; CHF; ph - Immunization history:: Adult Immunizations up to date. - Social history:: Smoking status: Smoking status: Patient denies any tobacco usage or history of. Screenin:38 Abuse screen: Denies threats or abuse. Denies injuries from another. Nutritional ph screening: No deficits noted. Tuberculosis screening: No symptoms or risk factors identified. Fall Risk None identified. Assessment: 09:57 General: SEE TRIAGE ASSESSMENT. ph 11:03 Reassessment: Patient appears in no apparent distress at this time. Patient and/or ss family updated on plan of care and expected duration. Pain level reassessed. Family member at bedside. Awaiting disposition. 12:10 Reassessment: Patient appears in no apparent distress at this time. Patient and/or ss family updated on plan of care and expected duration. Pain level reassessed. VERO Small at bedside reassessing patient. Awaiting disposition. Vital Signs: 09:25 BP 122 / 88; Pulse 59; Resp 18; Temp 97.2; Pulse Ox 100% on R/A; Weight 89.36 kg; ph Height 5 ft. 8 in. (172.72 cm); 12:29 BP 123 / 64; Pulse 64; Resp 17; Pulse Ox 96% on R/A; Pain 0/10; ss 09:25 Body Mass Index 29.95 (89.36 kg, 172.72 cm) ph ED Course: 09:18 Patient arrived in ED. rg4 09:27 Triage completed. ph 09:27 Arm band placed on Patient placed in an exam room, on a stretcher. ph 09:29 Geovanny Powell NP is PHCP. pm1 09:29 Melchor Reeves MD is Attending Physician. pm1 09:30 Kelly Patino, ARCHANA is Primary Nurse. ph 09:38 Patient has correct armband on for positive identification. Placed in gown. Bed in low ph position. Call light in reach. Side rails up X 1. Client placed on continuous cardiac and pulse oximetry monitoring. NIBP monitoring applied. Door closed. Warm blanket given. 09:52 COVID-19/FLU A+B (Document "Date of Onset" if Symptomatic) Sent. mb7 10:08 EKG done, by ED staff, reviewed by Geovanny Powell NP. mb7 10:34 XRAY Chest (1 view) In Process Unspecified. EDMS 13:01 No provider procedures requiring assistance completed. IV discontinued, intact, ss bleeding controlled, No redness/swelling at site. Pressure dressing applied. Administered Medications: 10:00 Drug: SOLU-Medrol (methylPrednisoLONE) 125 mg Route: IVP; Site: right antecubital; ss 10:15 Follow up: Response: No adverse reaction ph 10:02 Drug: Magnesium Sulfate 1 grams Route: IVPB; Infused Over: 1 hrs; Site: right ss antecubital; 19:36 Follow up: Response: No adverse reaction; IV Status: Completed infusion; IV Intake: ph 1000ml 10:09 Drug: Albuterol - atroVENT (ipratropium) (3:1) (2.5 mg - 0.5 mg) 3 ml Route: Nebulizer; ss 10:15 Follow up: Response: No adverse reaction ph 12:27 Drug: Tussionex Pennkinetic ER (chlorpheniramine-hydrocodone) Suspension 5 ml Route: PO;ss 12:29 Follow up: Response: Medication administered at discharge. ss Intake: 19:36 IV: 1000ml; Total: 1000ml. ph Outcome: 12:19 Discharge ordered by . pm1 13:01 Discharged to home ambulatory. ss 13:01 Condition: good 13:01 Discharge instructions given to patient, family, Instructed on discharge instructions, follow up and referral plans. medication usage, Demonstrated understanding of instructions, follow-up care, medications, Prescriptions given X 3. 13:02 Patient left the ED. Signatures: Dispatcher [employer] EDCT Analia Turner RN RN ss Kelly Patino RN RN Geovanny Powell, VERO TOMBSTONE CARVER pm1 Saundra Rojo 4 Santiago Lizy mb7
[2022-02-16] MEDS ORDERED: HYDROCODONE/CHLORPHEN 5 ML/OSYR ONE (12:30)
[2022-02-16 13:06] VITALS: TEMP 97.2
[2022-02-16 13:08] VITALS: BP 123/64; O2SAT 96
--- NOTE | 2022-02-17 08:59 | EKG ---
Test Date: 2022-02-16 Test Time: 09:56:50 Single Wire Saw Operator: MB MEASUREMENT RESULTS: Intervals: Rate: 60 SC: QRSD: 168 QT: 506 QTc: 506 [place]: P: SC: QRS: -86 T: 95 INTERPRETIVE STATEMENTS: Ventricular-paced rhythm Abnormal ECG Compared to ECG 07/25/2020 13:55:54 No significant changes Electronically Signed On 02-17-22 08:56:44 CDT by Nick Herbert
== END 2022-02-16 13:02 | disposition home or self-care (01) ==
LOC: ER 09:15
DX: J44.9 Chronic obstructive pulmonary disease, unspecified (principal); I10 Essential (primary) hypertension; I50.9 Heart failure, unspecified; Z20.822 Contact with and (suspected) exposure to COVID-19; Z88.0 Allergy status to penicillin
CPT/HCPCS: 96365; 93005; 85025; 80048; 36415; 83735; 85610; 80076; 84484; 83880; 0240U; 71045; 94640; 96375; 99284; 96366; J3475; J2930

== ENCOUNTER 2022-08-05 12:27 | Observation (INO) | payer OTHER ==
--- OUTSIDE RECORDS SUMMARY | 2022-08-05 12:31 | XMS REPORT | Continuity of Care Document ---
:1940 Author Organization [facility] t Address Replaced by [facility] [place] [address] Care Team Providers Name Role Phone Armando Pearl Primary Care Physician Tania Dozier Attending Clinician Unavailable EUSEBIA ALVARADO Attending Clinician Unavailable Eusebia Ivy Attending Clinician Doctor Unassigned, [place] Attending Clinician Unavailable Ena Palacios Attending Clinician Joselito OLVERA, Viviana Caicedo Attending Clinician [phone] Abigail Khan MA Attending Clinician Unavailable Juliette Ziegler RN Attending Clinician Unavailable ENA WELLS Attending Clinician Unavailable RY WINCHESTER Attending Clinician Unavailable Nurse, Adc Pob Immunization Attending Clinician Unavailable Ry Winchester DO Attending Clinician Flaco Villeda MD Attending Clinician FLACO VILLEDA Attending Clinician Unavailable TOR BHAKTA Attending Clinician Unavailable VINAYAK DAILEY Attending Clinician Unavailable MD VINAYAK DAILEY Attending Clinician Unavailable DR JORGE LUIS MEHTA Attending Clinician Unavailable VIVIANA BRODERICK Admitting Clinician Unavailable MD VIVIANA BRODERICK Admitting Clinician Unavailab DR JORGE LUIS Quispe Admitting Clinician Unavailable Payers Payer Name Policy Type Policy Number Effective Date Expiration Date S mayra [employer] [id number] 2021 00:00:00 MCARE ADV CHOICE PPO CIGNA I [id number] 2020 00:00:00 Problems Condition Condition Condition Status Onset Resolution Last Treating Co mments Source Name Details Category Date Date Treatment Clinician Date 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 Continue non-op managemen t and surveilla nce with CTA in 1 year Continue medical optimizat ion with ASA, statin, HTN control. 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 Continue non-op managemen t and surveilla nce with CTA in 1 year Continue medical optimizat ion with ASA, statin, HTN control. Elbow Elbow Disease Active Univers pain, pain, 9-17 ity of right right 00:00: [place] 00 Medical Branch Allergies, Adverse Reactions, Alerts Allergy Allergy Status Severity Reaction(s) Onset Inactive Treating Comm ents Source Name Type Date Date Clinician Penicill Propensi Active Hives 2019-10 Method i ins ty to 0-14 st adverse 00:00: Hospita reaction 00 l s to drug Penicill DA Active [place] [facility] ins 2-12 Clear 00:00: [place] 00 [facility] Penicill DA Active MO HIVES [facility] ins 2-12 Clear 00:00: [place] 00 [facility] Penicill Propensi Active Hives Univer s in ty to 9-17 ity of adverse 00:00: [place] reaction 00 Medical s Branch PENICILL DRUG Active Hives Univers IN INGREDI 9-17 ity of 00:00: [address] Branch penicill DA Active U 2007- [facility] in V 10-14 Clear 00:00: [place] [facility] No Known DA Active U 2007- [facility] Contrast 10-14 Clear Allergie 00:00: [place] [facility] No Known DA Active U 2007- [facility] Food 10-14 Clear Allergie 00:00: [place] [facility] No Known DA Active U 2007- [facility] Other 10-14 Clear Allergie 00:00: [place] [facility] PENICILL DA Active U RASH, 2007- [facility] IN SWELLING 10-14 Clear 00:00: [place] [facility] Family History Family Member Diagnosis Comments Start Date Stop Date Source Natural mother Heart disease [facility] Natural sister Hyperlipidemia [facility] Natural sister Hypertension [facility] Natural brother [facility] Natural father [facility] Social History Social Habit Start Date Stop Date Quantity Comments Source History SDIL [facility] Drinks History [facility] Exposure to 2022-07-20 2022-07-30 Not sure University of SARS-CoV-2 00:00:00 10:21:00 [facility] (event) [place] Tobacco use and 2022-07-30 2022-07-30 Smokeless tobacco Un iversity of exposure 00:00:00 00:00:00 non-user [facility] Alcohol intake 2021-02-05 2021-02-05 Current drinker [facility]o dist 00:00:00 00:00:00 of alcohol Hospital (finding) History SDOH 2020-07-26 2020-07-26 5 [facility] Frequency 00:00:00 00:00:00 Hospita l Alcohol Comment 2020-07-25 2020-07-[address] 00:00:00 00:00:00 night Hospital History of 2004-10-12 Cigarette Smoker [facility] of tobacco use 00:00:00 [facility] Sex Assigned At [birth year] [facility] 00:00:00 00:00:00 Hospital Smoking Status Start Date Stop Date Source Ex-smoker 2022-07-30 00:00:00 2022-07-30 00:00:00 [facility] of [place] [facility] Medications Ordered Filled Start Stop Current Ordering Indication Dosage Frequency Signature Comments Components Source Medication Medication Date Date Medication? Clinician (SIG) Name Name erick 2021-10 Yes 500mg Take 500 U nivers en 500 mg 0-19 mg by ity of tablet 11:22: mouth. [place] [address] Medical [place] sacubitriL- 2021-10 Yes 1{tbl} Take 1 Un [place] valsartan 0-19 tablet by ity o f (ENTRESTO) 11:22: mouth. [place] 24-26 mg 49 Medical tablet Branch acetaminoph 2021-10 Yes 500mg Take 500 U nivers en 500 mg 0-19 mg by ity of tablet 11:22: mouth. [place] [address] Medical [place] sacubitriL- 2021-10 Yes 1{tbl} Take 1 Un [place] valsartan 0-19 tablet by ity o f (ENTRESTO) 11:22: mouth. [place] 24-26 mg 49 Medical tablet Branch acetaminoph 2021-10 Yes 500mg Take 500 U nivers en 500 mg 0-19 mg by ity of tablet 11:22: mouth. [place] [address] Medical [place] sacubitriL- 2021-10 Yes 1{tbl} Take 1 Un [place] valsartan 0-19 tablet by ity o f (ENTRESTO) 11:22: mouth. [place] 24-26 mg 49 Medical tablet Branch tamsulosin 2021-10 Yes [id number] .4mg Take 1 Univers 0.4 mg 24 0-19 capsule by ity of hr capsule 00:00: mouth at [place] 00 bedtime. Medical Branch finasteride 2021-10 Yes [id number] 5mg Take 1 Univers 5 mg tablet 0-19 tablet by ity of 00:00: mouth in [place] the Medical morning. Branch tamsulosin 2021-10 Yes [id number] .4mg Take 1 Univers 0.4 mg 24 0-19 capsule by ity of hr capsule 00:00: mouth at [place] 00 bedtime. Medical Branch finasteride 2021-10 Yes [id number] 5mg Take 1 Univers 5 mg tablet 0-19 tablet by ity of 00:00: mouth in [place] the Medical morning. Branch tamsulosin 2021-10 Yes [id number] .4mg Take 1 Univers 0.4 mg 24 0-19 capsule by ity of hr capsule 00:00: mouth at [place] 00 bedtime. Medical Branch finasteride 2021-10 Yes [id number] 5mg Take 1 Univers 5 mg tablet 0-19 tablet by ity of 00:00: mouth in [place] 00 the Medical morning. Branch lubiproston Yes 24ug Take 24 Uni vers e 24 mcg 9-30 mcg by ity of capsule 00:00: mouth in [place] 00 the Medical morning Branch and 24 mcg in the evening. lubiproston Yes 24ug Take 24 Uni vers e 24 mcg 9-30 mcg by ity of capsule 00:00: mouth in [place] 00 the Medical morning Branch and 24 mcg in the evening. lubiproston Yes 24ug Take 24 Uni vers e 24 mcg 9-30 mcg by ity of capsule 00:00: mouth in [place] 00 the Medical morning Branch and 24 mcg in the evening. finasteride Yes [id number] 5mg Take 1 Univers 5 mg tablet 1-03 tablet by ity of 00:00: mouth [place] 00 daily. [facility] finasteride Yes [id number] 5mg Take 1 Univers 5 mg tablet 1-03 tablet by ity of 00:00: mouth [place] 00 daily. [facility] finasteride 2021- No [id number] 5mg Take 1 Univers 5 mg tablet 1-03 10-19 tablet by it y of 00:00: 00:00 mouth [place] 00 :00 daily. [facility] finasteride 2021- No [id number] 5mg Take 1 Univers 5 mg tablet 1-03 10-19 tablet by it y of 00:00: 00:00 mouth [place] 00 :00 daily. [facility] finasteride 2021- No [id number] 5mg Take 1 Univers 5 mg tablet 1-03 10-19 tablet by it y of 00:00: 00:00 mouth [place] 00 :00 daily. [facility] Branch omega-3 2020-10 Yes 1g Take 1 g Univer s fatty 0-04 by mouth ity of acids-vitam 15:01: [place]. [place] (FISH 41 Medical OIL) 1,000 Branch mg capsule CALCIUM 2020-10 Yes Take by Univers PHOSPHATE 0-04 mouth. ity of DIBAS/VIT 15:01: [place] D3 (VITAMIN 41 Medical D, WITH Branch CALCIUM, ORAL) NITROGLYCER 2020-[address] Unive rs IN 0-04 under the ity of (NITROQUICK 15:01: tongue. [place] SL) 41 Medical Branch omega-3 2020-10 Yes 1g Take 1 g Univer s fatty 0-04 by mouth ity of acids-vitam 15:01: [place]. [place] (FISH 41 Medical OIL) 1,000 Branch mg capsule CALCIUM 2020-10 Yes Take by Univers PHOSPHATE 0-04 mouth. ity of DIBAS/VIT 15:01: [place] D3 (VITAMIN 41 Medical D, WITH Branch CALCIUM, ORAL) NITROGLYCER 2020-[address] Unive rs IN 0-04 under the ity of (NITROQUICK 15:01: tongue. [place] SL) 41 Medical Branch omega-3 2020-10 Yes 1g Take 1 g Univer s fatty 0-04 by mouth ity of acids-vitam 15:01: [place]. [place] (FISH 41 Medical OIL) 1,000 Branch mg capsule CALCIUM 2020-10 Yes Take by Univers PHOSPHATE 0-04 mouth. ity of DIBAS/VIT 15:01: [place] D3 (VITAMIN 41 Medical D, WITH Branch CALCIUM, ORAL) NITROGLYCER 2020-[address] Unive rs IN 0-04 under the ity of (NITROQUICK 15:01: tongue. [place]) 41 Medical Branch omega-3 2020-10 Yes 1g Take 1 g Univer s fatty 0-04 by mouth ity of acids-vitam 15:01: [place]. [place] (FISH 41 Medical OIL) 1,000 Branch mg capsule CALCIUM 2020-10 Yes Take by Univers PHOSPHATE 0-04 mouth. ity of DIBAS/VIT 15:01: [place] D3 (VITAMIN 41 Medical D, WITH Branch CALCIUM, ORAL) NITROGLYCER 2020-[address] Unive rs IN 0-04 under the ity of (NITROQUICK 15:01: tongue. [place]) 41 Medical Branch omega-3 2020-10 Yes 1g Take 1 g Univer s fatty 0-04 by mouth ity of acids-vitam 15:01: daily. [place] (FISH 41 Medical OIL) 1,000 Branch mg capsule CALCIUM 2020-10 Yes Take by Univers PHOSPHATE 0-04 mouth. ity of DIBAS/VIT 15:01: [place] D3 (VITAMIN 41 Medical D, WITH Branch CALCIUM, ORAL) NITROGLYCER 2020-[address] Unive rs IN 0-04 under the ity of (NITROQUICK 15:01: tongue. [place] SL) 41 Medical Branch omega-3 2020-10 Yes 1g Take 1 g Univer s fatty 0-04 by mouth ity of acids-vitam 15:01: [place]. [place] (FISH 41 Medical OIL) 1,000 Branch mg capsule CALCIUM 2020-10 Yes Take by Univers PHOSPHATE 0-04 mouth. ity of DIBAS/VIT 15:01: [place] D3 (VITAMIN 41 Medical D, WITH Branch CALCIUM, ORAL) NITROGLYCER 2020-[address] Unive rs IN 0-04 under the ity of (NITROQUICK 15:01: tongue. [place]) 41 Medical Branch omega-3 2020-10 Yes 1g Take 1 g Univer s fatty 0-04 by mouth ity of acids-vitam 15:01: daily. [place] (FISH 41 Medical OIL) 1,000 Branch mg capsule CALCIUM 2020-10 Yes Take by Univers PHOSPHATE 0-04 mouth. ity of DIBAS/VIT 15:01: [place] D3 (VITAMIN 41 Medical D, WITH Branch CALCIUM, ORAL) NITROGLYCER 2020-[address] Unive rs IN 0-04 under the ity of (NITROQUICK 15:01: tongue. [place]) 41 Medical Branch finasteride 2020-10 Yes [id number] 5mg Take 1 Univers 5 mg tablet 0-04 tablet by ity of 00:00: mouth [place] 00 daily. Medical Branch tamsulosin 2020-10 Yes [id number] .4mg Take 1 Univers 0.4 mg 24 0-04 capsule by ity of hr capsule 00:00: mouth at [place] 00 bedtime. Medical Branch finasteride 2020-10 Yes [id number] 5mg Take 1 Univers 5 mg tablet 0-04 tablet by ity of 00:00: mouth [place] 00 daily. Medical Branch tamsulosin 2020-10 Yes [id number] .4mg Take 1 Univers 0.4 mg 24 0-04 capsule by ity of hr capsule 00:00: mouth at [place] 00 bedtime. Medical Branch finasteride 2020-10 Yes [id number] 5mg Take 1 Univers 5 mg tablet 0-04 tablet by ity of 00:00: mouth [place] 00 daily. Medical Branch tamsulosin 2020-10 Yes [id number] .4mg Take 1 Univers 0.4 mg 24 0-04 capsule by ity of hr capsule 00:00: mouth at [place] 00 bedtime. Medical Branch finasteride 2020-10 Yes [id number] 5mg Take 1 Univers 5 mg tablet 0-04 tablet by ity of 00:00: mouth [place] 00 daily. Medical Branch tamsulosin 2020-10 Yes [id number] .4mg Take 1 Univers 0.4 mg 24 0-04 capsule by ity of hr capsule 00:00: mouth at [place] 00 bedtime. Medical Branch finasteride 2020-10- No [id number] 5mg Take 1 Univers 5 mg tablet 0-04 10-19 tablet by it y of 00:00: 00:00 mouth [place] 00 :00 daily. Medical Branch tamsulosin 2020-10- No [id number] .4mg Take 1 Univers 0.4 mg 24 0-04 10-19 capsule by ity of hr capsule 00:00: 00:00 mouth [place] 00 :00 bedtime. Medical Branch finasteride 2020-10- No [id number] 5mg Take 1 Univers 5 mg tablet 0-04 10-19 tablet by it y of 00:00: 00:00 mouth [place] 00 :00 daily. Medical Branch tamsulosin 2020-10- No [id number] .4mg Take 1 Univers 0.4 mg 24 0-04 10-19 capsule by ity of hr capsule 00:00: 00:00 [place] 00 :00 bedtime. Medical Branch finasteride 2020-10- No [id number] 5mg Take 1 Univers 5 mg tablet 0-04 10-19 tablet by it y of 00:00: 00:00 mouth [place] 00 :00 daily. Medical Branch tamsulosin 2020-10- No [id number] .4mg Take 1 Univers 0.4 mg 24 0-04 10-19 capsule by ity of hr capsule 00:00: 00:00 mouth at [place] 00 :00 bedtime. Medical Branch finasteride 2021-0 Yes [id number] 5mg Take 1 Univers 5 mg tablet 9-24 tablet by ity of 00:00: mouth [place] 00 daily. Medical Branch tamsulosin 0 Yes [id number] .4mg Take 1 Univers 0.4 mg 24 9-24 capsule by ity of hr capsule 00:00: mouth at [place] 00 bedtime. Medical Branch finasteride 0 Yes [id number] 5mg Take 1 Univers 5 mg tablet 9-24 tablet by ity of 00:00: mouth [place] 00 daily. Medical Branch tamsulosin 0 Yes [id number] .4mg Take 1 Univers 0.4 mg 24 9-24 capsule by ity of hr capsule 00:00: mouth at [place] 00 bedtime. Medical Branch tamsulosin Yes [id number] .4mg Take 1 Univers 0.4 mg 24 9-24 capsule by ity of hr capsule 00:00: mouth at [place] 00 bedtime. Medical Branch tamsulosin Yes [id number] .4mg Take 1 Univers 0.4 mg 24 9-24 capsule by ity of hr capsule 00:00: mouth at [place] 00 bedtime. Medical Branch tamsulosin 2021- No [id number] .4mg Take 1 Univers 0.4 mg 24 9-24 10-19 capsule by ity of hr capsule 00:00: 00:00 mouth [place] 00 :00 bedtime. Medical Branch tamsulosin 2021- No [id number] .4mg Take 1 Univers 0.4 mg 24 9-24 10-19 capsule by ity of hr capsule 00:00: 00:00 mouth [place] 00 :00 bedtime. Medical Branch tamsulosin 2021- No [id number] .4mg Take 1 Univers 0.4 mg 24 9-24 10-19 capsule by ity of hr capsule 00:00: 00:00 mouth [place] 00 :00 bedtime. Medical Branch finasteride 0 2021- No [id number] 5mg Take 1 Univers 5 mg tablet 9-04 11-03 tablet by it y of 00:00: 00:00 mouth [place] 00 :00 daily. Medical Branch sacubitriL- 0 Yes 1{tbl} Q.5D Take 1 Me [facility] valsartan 4-[address] (Entresto) 16:19: mouth 2 Hosp mesha 24-26 mg 51 (two) l tablet per times a tablet day. He's not sure of the dosage allopurinoL 2021-0 Yes 100mg Q.5D Take 100 M ethodi (ZYLOPRIM) 4-[address] 100 MG 16:19: mouth 2 Hospita tablet 51 (two) l times a day. polyethylen 2020-0 Yes 17g QD Take 17 g M ethodi e glycol 4-[address] (GLYCOLAX) 16:19: daily. Hospi ta 17 51 l gram/dose powder desonide 2021-0 Yes Q.5D Apply Methodi (DESOWEN) 4-[address] 0.05 % 16:19: 2 (two) Hospita cream 51 times a l day. acetaminoph 202-0 Yes 500mg Q6H Take 500 M ethodi en 4-[address] (TYLENOL) 16:19: mouth Hospita 500 MG 51 every 6 l tablet (six) hours as needed for mild pain. tamsulosin 2020-0 Yes .4mg Q.5D Take 0.4 Met hodi (FLOMAX) 4-[address] 0.4 mg 16:19: mouth 2 Hospita capsule 15 (two) l times a day. furosemide 2020-0 Yes 20mg Take 20 mg M ethodi (LASIX) 20 4-[address] mg tablet 16:19: Once a day Ho spita 15 Every l other day atorvastati 2020-0 Yes 80mg QD Take 80 mg Methodi n (LIPITOR) 4-[address] 40 mg 16:19: daily. Hospita tablet 15 l omeprazole 1-0 Yes 20mg QD Take 20 mg M ethodi (PriLOSEC) 4-[address] 20 MG 16:19: nightly. Hospita capsule 15 l finasteride 2020-0 Yes 5mg QD Take 5 mg M ethodi (PROSCAR) 5 4-[address] mg tablet 16:19: daily. Hospit a 15 l metoprolol 1-0 Yes 50mg QD Take 50 mg M ethodi succinate 4-[address] XL 16:19: daily. Hospita (TOPROL-XL) 15 l 25 mg 24 hr tablet ipratropium Yes 2{puff} Q6H Inhale 2 Methodi -albuteroL 4-[address] (COMBIVENT 16:19: every 6 Hosp mesha RESPIMAT) 15 (six) l 20-100 hours as mcg/actuati needed for on mist wheezing. inhaler fluticasone Yes QD Inhale 1 Me thodi -umeclidin- 4-[address] vilanter 16:19: s once Hospita (Trelegy 15 daily. l Ellipta) 100-62.5-25 mcg blister with device powder for inhalation diphenhydrA Yes 25mg QD Take 25 mg Methodi MINE 4-[address] (BENADRYL) 16:19: nightly as H ospita 25 mg 14 needed for l tablet sleep. DICLOFENAC Yes TAKE 1 Unive rs 75 mg EC 4-11 TABLET BY ity of tablet 00:00: MOUTH 00 TWICE Medical DAILY WITH Branch MEALS DICLOFENAC Yes TAKE 1 Unive rs 75 mg EC 4-11 TABLET BY ity of tablet 00:00: MOUTH 00 TWICE Medical DAILY WITH Branch MEALS DICLOFENAC Yes TAKE 1 Unive rs 75 mg EC 4-11 TABLET BY ity of tablet 00:00: MOUTH 00 TWICE Medical DAILY WITH Branch MEALS DICLOFENAC Yes TAKE 1 Unive rs 75 mg EC 4-11 TABLET BY ity of tablet 00:00: MOUTH 00 TWICE Medical DAILY WITH Branch MEALS DICLOFENAC Yes TAKE 1 Unive rs 75 mg EC 4-11 TABLET BY ity of tablet 00:00: MOUTH 00 TWICE Medical DAILY WITH Branch MEALS DICLOFENAC Yes TAKE 1 Unive rs 75 mg EC 4-11 TABLET BY ity of tablet 00:00: MOUTH 00 TWICE Medical DAILY WITH Branch MEALS DICLOFENAC Yes TAKE 1 Unive rs 75 mg EC 4-11 TABLET BY ity of tablet 00:00: MOUTH [place] 00 TWICE Medical DAILY WITH Branch MEALS DICLOFENAC Yes TAKE 1 Unive rs 75 mg EC 3-16 TABLET BY ity of tablet 00:00: MOUTH 00 TWICE Medical DAILY WITH Branch MEALS DICLOFENAC Yes TAKE 1 Unive rs 75 mg EC 3-16 TABLET BY ity of tablet 00:00: MOUTH [place] 00 TWICE Medical DAILY WITH Branch MEALS DICLOFENAC 2017-0 Yes TAKE 1 Unive rs 75 mg EC 3-16 TABLET BY ity of tablet 00:00: MOUTH [place] 00 TWICE Medical DAILY WITH Branch MEALS DICLOFENAC 2017-0 Yes TAKE 1 Unive rs 75 mg EC 3-16 TABLET BY ity of tablet 00:00: MOUTH 00 TWICE Medical DAILY WITH Branch MEALS DICLOFENAC 2017-0 Yes TAKE 1 Unive rs 75 mg EC 3-16 TABLET BY ity of tablet 00:00: MOUTH 00 TWICE Medical DAILY WITH Branch MEALS DICLOFENAC 2017-0 Yes TAKE 1 Unive rs 75 mg EC 3-16 TABLET BY ity of tablet 00:00: MOUTH 00 TWICE Medical DAILY WITH Branch MEALS DICLOFENAC 2017-0 Yes TAKE 1 Unive rs 75 mg EC 3-16 TABLET BY ity of tablet 00:00: MOUTH 00 TWICE Medical DAILY WITH Branch MEALS DICLOFENAC 2017-0 Yes TAKE 1 Unive rs 75 mg EC 3-15 TABLET BY ity of tablet 00:00: MOUTH 00 TWICE Medical DAILY WITH Branch MEALS DICLOFENAC 2017-0 Yes TAKE 1 Unive rs 75 mg EC 3-15 TABLET BY ity of tablet 00:00: MOUTH 00 TWICE Medical DAILY WITH Branch MEALS DICLOFENAC 2017-0 Yes TAKE 1 Unive rs 75 mg EC 3-15 TABLET BY ity of tablet 00:00: MOUTH 00 TWICE Medical DAILY WITH Branch MEALS DICLOFENAC 2017-0 Yes TAKE 1 Unive rs 75 mg EC 3-15 TABLET BY ity of tablet 00:00: MOUTH 00 TWICE Medical DAILY WITH Branch MEALS DICLOFENAC 2017-0 Yes TAKE 1 Unive rs 75 mg EC 3-15 TABLET BY ity of tablet 00:00: MOUTH 00 TWICE Medical DAILY WITH Branch MEALS DICLOFENAC 2017-0 Yes TAKE 1 Unive rs 75 mg EC 3-15 TABLET BY ity of tablet 00:00: MOUTH 00 TWICE Medical DAILY WITH Branch MEALS DICLOFENAC 2017-0 Yes TAKE 1 Unive rs 75 mg EC 3-15 TABLET BY ity of tablet 00:00: MOUTH 00 TWICE Medical DAILY WITH Branch MEALS ALBUTEROL 2015-10 Yes Inhale. Unive rs INHALE 2-21 ity of 15:42: [address] Branch ALBUTEROL 2015-10 Yes Inhale. Unive rs INHALE 2-21 ity of 15:42: [address] Branch ALBUTEROL 2015-10 Yes Inhale. Unive rs INHALE 2-21 ity of 15:42: [address] ALBUTEROL 2015-10 Yes Inhale. Unive rs INHALE 2-21 ity of 15:42: [address] ALBUTEROL 2015-10 Yes Inhale. Unive rs INHALE 2-21 ity of 15:42: [address] ALBUTEROL 2015-10 Yes Inhale. Unive rs INHALE 2-21 ity of 15:42: [address] ALBUTEROL 2015-10 Yes Inhale. Unive rs INHALE 2-21 ity of 15:42: [address] BREO 2015-10 Yes USE 1 Univers ELLIPTA 2-14 INHALATION ity of 200-25 00:00: PO QD [place] mcg/dose 00 [facility] 2015-10 Yes USE 1 Univers ELLIPTA 2-14 INHALATION ity of 200-25 00:00: PO QD [place] mcg/dose [facility] 2015-10 Yes USE 1 Univers ELLIPTA 2-14 INHALATION ity of 200-25 00:00: PO QD [place] mcg/dose [facility] 2015-10 Yes USE 1 Univers ELLIPTA 2-14 INHALATION ity of 200-25 00:00: PO QD [place] mcg/dose 00 [facility] 2015-10 Yes USE 1 Univers ELLIPTA 2-14 INHALATION ity of 200-25 00:00: PO QD [place] mcg/dose 00 [facility] 2015-10 Yes USE 1 Univers ELLIPTA 2-14 INHALATION ity of 200-25 00:00: PO QD [place] mcg/dose 00 [facility] 2015-10 Yes USE 1 Univers ELLIPTA 2-14 INHALATION ity of 200-25 00:00: PO QD [place] mcg/dose 00 [facility] meloxicam Yes 7.5mg Take 7.5 Uni vers (MOBIC) 7.5 7-14 mg by ity of mg tablet 08:55: mouth [place] 06 daily. [facility] meloxicam Yes 7.5mg Take 7.5 Uni vers (MOBIC) 7.5 7-14 mg by ity of mg tablet 08:55: mouth [place] 06 daily. [facility] meloxicam Yes 7.5mg Take 7.5 Uni vers (MOBIC) 7.5 7-14 mg by ity of mg tablet 08:55: mouth [place] 06 daily. Medical Branch meloxicam 2016-0 Yes 7.5mg Take 7.5 Uni vers (MOBIC) 7.5 7-14 mg by ity of mg tablet 08:55: mouth [place] 06 daily. Medical Branch meloxicam 2016-0 Yes 7.5mg Take 7.5 Uni vers (MOBIC) 7.5 7-14 mg by ity of mg tablet 08:55: mouth [place] 06 daily. [facility] Branch meloxicam 2016-0 Yes 7.5mg Take 7.5 Uni vers (MOBIC) 7.5 7-14 mg by ity of mg tablet 08:55: mouth [place] 06 daily. [facility] meloxicam 2016- Yes 7.5mg Take 7.5 Uni vers (MOBIC) 7.5 7-14 mg by ity of mg tablet 08:55: mouth [place] 06 daily. [facility] HYDROcodone Yes 1{tbl} Take 1 Tab Univers -acetaminop 7-14 by mouth 2 it y of hen (NORCO 08:52: (two) [place] 5) 5-325 mg 21 times Medical tablet daily. Branch HYDROcodone Yes 1{tbl} Take 1 Tab Univers -acetaminop 7-14 by mouth 2 it y of hen (NORCO 08:52: (two) [place] 5) 5-325 mg 21 times Medical tablet daily. Branch HYDROcodone Yes 1{tbl} Take 1 Tab Univers -acetaminop 7-14 by mouth 2 it y of hen (NORCO 08:52: (two) [place] 5) 5-325 mg 21 times Medical tablet daily. Branch HYDROcodone 2016-0 Yes 1{tbl} Take 1 Tab Univers -acetaminop 7-14 by mouth 2 it y of hen (NORCO 08:52: (two) [place] 5) 5-325 mg 21 times Medical tablet daily. Branch HYDROcodone 2016-0 Yes 1{tbl} Take 1 Tab Univers -acetaminop 7-14 by mouth 2 it y of hen (NORCO 08:52: (two) [place] 5) 5-325 mg 21 times Medical tablet daily. Branch HYDROcodone 2016-0 Yes 1{tbl} Take 1 Tab Univers -acetaminop 7-14 by mouth 2 it y of hen (NORCO 08:52: (two) [place] 5) 5-325 mg 21 times Medical tablet daily. Branch HYDROcodone Yes 1{tbl} Take 1 Tab Univers -acetaminop 7-14 by mouth 2 it y of hen (NORCO 08:52: (two) [place] 5) 5-325 mg 21 times Medical tablet daily. Branch metoprolol Yes TK 1 T PO Un [place] succinate 5-28 QD ity of XL (TOPROL 00:00: [place] XL) 50 mg 00 Medical 24 hr Branch tablet metoprolol Yes TK 1 T PO Un [place] succinate 5-28 QD ity of XL (TOPROL 00:00: [place] XL) 50 mg 00 Medical 24 hr Branch tablet metoprolol Yes TK 1 T PO Un [place] succinate 5-28 QD ity of XL (TOPROL 00:00: [place] XL) 50 mg 00 Medical 24 hr Branch tablet metoprolol Yes TK 1 T PO Un [place] succinate 5-28 QD ity of XL (TOPROL 00:00: [place] XL) 50 mg 00 Medical 24 hr Branch tablet metoprolol Yes TK 1 T PO Un [place] succinate 5-28 QD ity of XL (TOPROL 00:00: [place] XL) 50 mg 00 Medical 24 hr Branch tablet metoprolol Yes TK 1 T PO Un [place] succinate 5-28 QD ity of XL (TOPROL 00:00: [place] XL) 50 mg 00 Medical 24 hr Branch tablet metoprolol Yes TK 1 T PO Un [place] succinate 5-28 QD ity of XL (TOPROL 00:00: [place] XL) 50 mg 00 Medical 24 hr Branch tablet furosemide Yes 40mg Take 40 mg U nivers (LASIX) 20 9-04 by mouth ity o f mg tablet 00:00: daily. Medical Branch furosemide Yes 40mg Take 40 mg U nivers (LASIX) 20 9-04 by mouth ity o f mg tablet 00:00: daily. [facility] furosemide Yes 40mg Take 40 mg U nivers (LASIX) 20 9-04 by mouth ity o f mg tablet 00:00: daily. Medical Branch furosemide Yes 40mg Take 40 mg U nivers (LASIX) 20 9-04 by mouth ity o f mg tablet 00:00: daily. Medical Branch furosemide Yes 40mg Take 40 mg U nivers (LASIX) 20 9-04 by mouth ity o f mg tablet 00:00: daily. Medical Branch furosemide Yes 40mg Take 40 mg U nivers (LASIX) 20 9-04 by mouth ity o f mg tablet 00:00: daily. Medical Branch furosemide Yes 40mg Take 40 mg U nivers (LASIX) 20 9-04 by mouth ity o f mg tablet 00:00: daily. [facility] allopurinol Yes 100mg Take 100 U nivers (ZYLOPRIM) 9-03 mg by ity of 100 mg 00:00: mouth 2 [place] tablet 00 (two) Medical times Branch daily. colchicine Yes .6mg Take 0.6 Uni vers (COLCRYS) 9-03 mg by ity of 0.6 mg 00:00: mouth [place] tablet 00 daily. [facility] allopurinol Yes 100mg Take 100 U nivers (ZYLOPRIM) 9-03 mg by ity of 100 mg 00:00: mouth 2 [place] tablet 00 (two) Medical times Branch daily. colchicine Yes .6mg Take 0.6 Uni vers (COLCRYS) 9-03 mg by ity of 0.6 mg 00:00: mouth [place] tablet 00 daily. [facility] allopurinol Yes 100mg Take 100 U nivers (ZYLOPRIM) 9-03 mg by ity of 100 mg 00:00: mouth 2 [place] tablet 00 (two) Medical times Branch daily. colchicine Yes .6mg Take 0.6 Uni vers (COLCRYS) 9-03 mg by ity of 0.6 mg 00:00: mouth [place] tablet 00 daily. [facility] allopurinol Yes 100mg Take 100 U nivers (ZYLOPRIM) 9-03 mg by ity of 100 mg 00:00: mouth 2 [place] tablet 00 (two) Medical times Branch daily. colchicine Yes .6mg Take 0.6 Uni vers (COLCRYS) 9-03 mg by ity of 0.6 mg 00:00: mouth [place] tablet 00 daily. [facility] allopurinol Yes 100mg Take 100 U nivers (ZYLOPRIM) 9-03 mg by ity of 100 mg 00:00: mouth 2 [place] tablet 00 (two) Medical times Branch daily. colchicine 2014-0 Yes .6mg Take 0.6 Uni vers (COLCRYS) 9-03 mg by ity of 0.6 mg 00:00: mouth [place] tablet 00 daily. Medical Branch allopurinol Yes 100mg Take 100 U nivers (ZYLOPRIM) 9-03 mg by ity of 100 mg 00:00: mouth 2 [place] tablet 00 (two) Medical times Branch daily. colchicine 2014- Yes .6mg Take 0.6 Uni vers (COLCRYS) 9-03 mg by ity of 0.6 mg 00:00: mouth [place] tablet 00 daily. Medical Branch allopurinol Yes 100mg Take 100 U nivers (ZYLOPRIM) 9-03 mg by ity of 100 mg 00:00: mouth 2 [place] tablet 00 (two) Medical times Branch daily. colchicine 2014- Yes .6mg Take 0.6 Uni vers (COLCRYS) 9-03 mg by ity of 0.6 mg 00:00: mouth [place] tablet 00 daily. Medical Branch polyethylen Yes 17g Take 17 g U nivers e glycol 8-27 by mouth ity of (GLYCOLAX) 00:00: daily. Medical gram/dose Branch powder polyethylen 0 Yes 17g Take 17 g U nivers e glycol 8-27 by mouth ity of (GLYCOLAX) 00:00: daily. Medical gram/dose Branch powder polyethylen Yes 17g Take 17 g U nivers e glycol 8-27 by mouth ity of (GLYCOLAX) 00:00: daily. Medical gram/dose Branch powder polyethylen Yes 17g Take 17 g U nivers e glycol 8-27 by mouth ity of (GLYCOLAX) 00:00: daily. Medical gram/dose Branch powder polyethylen 0 Yes 17g Take 17 g U nivers e glycol 8-27 by mouth ity of (GLYCOLAX) 00:00: daily. Medical gram/dose Branch powder polyethylen Yes 17g Take 17 g U nivers e glycol 8-27 by mouth ity of (GLYCOLAX) 00:00: daily. [place] [facility] gram/dose Branch powder polyethylen 0 Yes 17g Take 17 g U nivers e glycol 8-27 by mouth ity of (GLYCOLAX) 00:00: daily. [place] [facility] gram/dose Branch powder lovastatin 0 Yes 20mg Take 20 mg U nivers (MEVACOR) 8-15 by mouth ity of 20 mg 00:00: at [place] tablet 00 bedtime. Medical Branch lovastatin Yes 20mg Take 20 mg U nivers (MEVACOR) 8-15 by mouth ity of 20 mg 00:00: at [place] tablet 00 bedtime. Medical Branch lovastatin Yes 20mg Take 20 mg U nivers (MEVACOR) 8-15 by mouth ity of 20 mg 00:00: at [place] tablet 00 bedtime. Medical Branch lovastatin Yes 20mg Take 20 mg U nivers (MEVACOR) 8-15 by mouth ity of 20 mg 00:00: at [place] tablet 00 bedtime. Medical Branch lovastatin Yes 20mg Take 20 mg U nivers (MEVACOR) 8-15 by mouth ity of 20 mg 00:00: at [place] tablet 00 bedtime. Medical Branch lovastatin Yes 20mg Take 20 mg U nivers (MEVACOR) 8-15 by mouth ity of 20 mg 00:00: at [place] tablet 00 bedtime. Medical Branch lovastatin Yes 20mg Take 20 mg U nivers (MEVACOR) 8-15 by mouth ity of 20 mg 00:00: at [place] tablet 00 bedtime. Medical Branch terazosin 0 Yes 10mg Take 10 mg Un marcelino (HYTRIN) 10 8-01 by mouth ity of mg capsule 00:00: at [place] 00 bedtime. Medical Branch terazosin 0 Yes 10mg Take 10 mg Un marcelino (HYTRIN) 10 8-01 by mouth ity of mg capsule 00:00: at [place] 00 bedtime. Medical Branch terazosin 0 Yes 10mg Take 10 mg Un marcelino (HYTRIN) 10 8-01 by mouth ity of mg capsule 00:00: at [place] 00 bedtime. Medical Branch terazosin 0 Yes 10mg Take 10 mg Un marcelino (HYTRIN) 10 8-01 by mouth ity of mg capsule 00:00: at [place] 00 bedtime. Medical Branch terazosin 2021- No 10mg Take 10 mg U nivers (HYTRIN) 05-12 by mouth ity of mg capsule 00:00: 00:00 at [place] 00 :00 bedtime. Medical Branch terazosin 2021- No 10mg Take 10 mg U nivers (HYTRIN) 05-12 by mouth ity of mg capsule 00:00: 00:00 at [place] 00 :00 bedtime. Medical Branch terazosin 2021- No 10mg Take 10 mg U nivers (HYTRIN) 05-12 by mouth ity of mg capsule 00:00: 00:00 at [place] 00 :00 bedtime. Medical Branch acetaminoph Yes Univer s en-codeine 7-31 ity of (TYLENOL 00:00: [place] #3) 300-30 00 Medical mg tablet Branch acetaminoph Yes Univer s en-codeine 7-31 ity of (TYLENOL 00:00: [place] #3) 300-30 00 Medical mg tablet Branch acetaminoph Yes Univer s en-codeine 7-31 ity of (TYLENOL 00:00: [place] #3) 300-30 00 Medical mg tablet Branch acetaminoph Yes Univer s en-codeine 7-31 ity of (TYLENOL 00:00: [place] #3) 300-30 00 Medical mg tablet Branch acetaminoph Yes Univer s en-codeine 7-31 ity of (TYLENOL 00:00: [place] #3) 300-30 00 Medical mg tablet Branch acetaminoph Yes Univer s en-codeine 7-31 ity of (TYLENOL 00:00: [place] #3) 300-30 00 Medical mg tablet Branch acetaminoph Yes Univer s en-codeine 7-31 ity of (TYLENOL 00:00: [place] #3) 300-30 00 Medical mg tablet Branch ranitidine Yes 150mg Take 150 Un marcelino (ZANTAC) 6-29 mg by ity of 150 mg 00:00: mouth 2 [place] tablet 00 (two) Medical times Branch daily. ranitidine 2015-0 Yes 150mg Take 150 Un marcelino (ZANTAC) 6-29 mg by ity of 150 mg 00:00: mouth 2 [place] tablet 00 (two) Medical times Branch daily. ranitidine 2015-0 Yes 150mg Take 150 Un marcelino (ZANTAC) 6-29 mg by ity of 150 mg 00:00: mouth 2 [place] tablet 00 (two) Medical times Branch daily. ranitidine 2015-0 Yes 150mg Take 150 Un marcelino (ZANTAC) 6-29 mg by ity of 150 mg 00:00: mouth 2 [place] tablet 00 (two) Medical times Branch daily. ranitidine 2015-0 Yes 150mg Take 150 Un marcelino (ZANTAC) 6-29 mg by ity of 150 mg 00:00: mouth 2 [place] tablet 00 (two) Medical times Branch daily. ranitidine 2015-0 Yes 150mg Take 150 Un marcelino (ZANTAC) 6-29 mg by ity of 150 mg 00:00: mouth 2 [place] tablet 00 (two) Medical times Branch daily. ranitidine 2015-0 Yes 150mg Take 150 Un marcelino (ZANTAC) 6-29 mg by ity of 150 mg 00:00: mouth 2 [place] tablet 00 (two) Medical times Branch daily. Immunizations Ordered Filled Immunization Date Status Comments [facility] e Immunization Name Name SARS-COV-2 COVID-19 2021-07-15 Completed Unive rsity of PFIZER VACCINE 00:00:00 [facility] SARS-COV-2 COVID-19 2021-07-15 Completed Unive rsity of PFIZER VACCINE 00:00:00 [facility] SARS-COV-2 COVID-19 2021-07-15 Completed Unive rsity of PFIZER VACCINE 00:00:00 [facility] SARS-COV-2 COVID-19 2021-07-15 Completed Unive rsity of PFIZER VACCINE 00:00:00 [facility] SARS-COV-2 COVID-19 2021-07-15 Completed Unive rsity of PFIZER VACCINE 00:00:00 [facility] SARS-COV-2 COVID-19 2021-07-15 Completed Unive rsity of PFIZER VACCINE 00:00:00 [facility] SARS-COV-2 COVID-19 2021-07-15 Completed Unive rsity of PFIZER VACCINE 00:00:00 [facility] SARS-COV-2 COVID-19 2021-01-17 Completed Unive rsity of PFIZER VACCINE 00:00:00 [facility] SARS-COV-2 COVID-19 2021-01-17 Completed Unive rsity of PFIZER VACCINE 00:00:00 [facility] SARS-COV-2 COVID-19 2021-01-17 Completed Unive rsity of PFIZER VACCINE 00:00:00 [facility] SARS-COV-2 COVID-19 2021-01-17 Completed Unive rsity of PFIZER VACCINE 00:00:00 [facility] SARS-COV-2 COVID-19 2021-01-17 Completed Unive rsity of PFIZER VACCINE 00:00:00 [facility] SARS-COV-2 COVID-19 2021-01-17 Completed Unive rsity of PFIZER VACCINE 00:00:00 [facility] SARS-COV-2 COVID-19 2021-01-17 Completed Unive rsity of PFIZER VACCINE 00:00:00 [facility] SARS-COV-2 COVID-19 2020-12-26 Completed Unive rsity of PFIZER VACCINE 00:00:00 [facility] SARS-COV-2 COVID-19 2020-12-26 Completed Unive rsity of PFIZER VACCINE 00:00:00 [facility] SARS-COV-2 COVID-19 2020-12-26 Completed Unive rsity of PFIZER VACCINE 00:00:00 [facility] SARS-COV-2 COVID-19 2020-12-26 Completed Unive rsity of PFIZER VACCINE 00:00:00 [facility] SARS-COV-2 COVID-19 2020-12-26 Completed Unive rsity of PFIZER VACCINE 00:00:00 [facility] SARS-COV-2 COVID-19 2020-12-26 Completed Unive rsity of PFIZER VACCINE 00:00:00 [facility] SARS-COV-2 COVID-19 2020-12-26 Completed Unive rsity of PFIZER VACCINE 00:00:00 [facility] Vital Signs Vital Name Observation Time Observation Value Comments Source Systolic blood 2022-07-30 15:45:00 120 mm[Hg] Univer sity of pressure [facility] Diastolic blood 2022-07-30 15:45:00 69 mm[Hg] Unive rsity of pressure [facility] Heart rate 2022-07-30 15:45:00 63 /min [facility]i ty [facility] Respiratory rate 2022-07-30 15:45:00 16 /min Univ ersity of [place] [facility] [place] Body height 2022-07-30 15:45:00 175.3 cm [facility] [place] Body weight 2022-07-30 15:45:00 85.911 kg [facility] BMI 2022-07-30 15:45:00 27.97 kg/m2 [facility] [place] Oxygen saturation in 2022-07-30 15:45:00 100 /min room air University of Arterial blood by [facility] Pulse oximetry Branch Systolic blood 2021-07-15 20:01:00 113 mm[Hg] Univer sity of pressure [facility] [place] Diastolic blood 2021-07-15 20:01:00 66 mm[Hg] Unive rsity of pressure [facility] [place] Heart rate 2021-07-15 20:01:00 86 /min [facility] [place] Body temperature 2021-07-15 20:01:00 35.5 Julia Univ ersity of [facility] [place] Respiratory rate 2021-07-15 20:01:00 18 /min Univ ersity of [facility] Body height 2021-07-15 20:01:00 175.3 cm [facility] [place] [facility] [place] Body weight 2021-07-15 20:01:00 93.35 kg [facility] BMI 2021-07-15 20:01:00 30.39 kg/m2 [facility] Oxygen saturation in 2021-07-15 20:01:00 97 /min University of Arterial blood by [facility] Pulse oximetry Branch Procedures Procedure Date / Time Performed Performing Clinician Ebenezer e POCT URINALYSIS AUTO 2022-07-30 15:44:00 Eusebia Alvarado versity of [facility] CONSENT/REFUSAL FOR 2022-07-30 15:24:13 [facility], [facility] Name Medical Branch TREATMENT POCT URINALYSIS AUTO 2021-07-15 20:05:00 Ena Wells ittato of [facility] Plan of Care Planned Activity Planned Date Details Comments Source Future Scheduled 2022-08-05 HEPATITIS B VACCINES [facility] Test 12:29:06 (1 of 3 - 3-dose series) [code = HEPATITIS B VACCINES (1 of 3 - 3-dose series)] Future Scheduled 2022-08-05 SHINGLES VACCINES ([address] [facility] Test 12:29:06 of 2) [code = SHINGLES VACCINES (1 of 2)] Future Scheduled 2022-08-05 65+ [facility]OCOCCAL [facility] Test 12:29:06 VACCINE (1 - PCV) [code = 65+ PNEUMOCOCCAL VACCINE (1 - PCV)] Future Scheduled 2022-08-05 COVID-19 VACCINE (4 - [facility] Test 12:29:06 Booster for Pfizer series) [code = COVID-19 VACCINE (4 - Booster for Pfizer series)] Future Scheduled 2022-08-05 INFLUENZA VACCINE [facility] Test 12:29:06 [code = INFLUENZA VACCINE] Encounters Start End Encounter Admission Attending Care Care Encounter Source Date/Time Date/Time Type Type Clinicians Facility Department ID 2019-11-22 Inpatient Hematpour, HCACL OUTD [id number] [facility] 09:30:00 Tania 22 [facility] 2022-07-30 2022-07-30 Outpatient R CHRISTIANO [facility] [id number] [facility] 10:30:00 11:13:28 EUSEBIA peres o f [facility] 2022-07-30 2022-07-30 Office Christiano ALIVET 1.2.840.114 [id number] [facility] 10:30:00 11:13:28 Visit Eusebia CAM 350.1.13.10 it[place] [phone] Ia dical NAL [address] [place] BUILDING 2022-07-30 2022-07-30 Orders Doctor SREE 1.2.840.114 [id number] Univers 00:00:00 00:00:00 Only Unassigned, ELSIE 350.1.13.10 ity of [place] [facility] 4.2.7.2.686 Guido as [phone] [address] 2021-10-14 2021-10-14 [facility] 1.2.840.114 [id number] Univers 00:00:00 00:00:00 Ena CAM 350.1.13.10 [facility] 4.2.7.2.686 Alicia BUCIO [id number] Ia dical NAL 204 [facility] 2021-09-18 2021-09-18 Telephone Joselito, 1.2.840.1 [id number] Methodi 08:10:00 08:15:56 Consult Sotoa 47107.1.1 962 s t Sascha 3.430.2.7 Hospi ta .3.293589 l .8 2021-09-18 2021-09-18 Orders Erin, 1.2.840.1 [id number] Methodi 00:00:00 00:00:00 [address] Abigail 8[address]82.1.[address] 3.430.2.7 Hospit a .3.289038 l .8 2021-09-18 2021-09-18 Outpatient [facility] [id number] Advance 00:00:00 00:00:[address] STEVENTTA [address] 2021-09-09 2021-09-09 [facility] 1.2.840.1 [id number] Methodi 00:00:00 00:00:00 , Juliette [address]996.1.[address] 3.430.2.7 Hospit a .3.494240 l .8 2021-08-12 2021-08-12 Telephone Penlorida 1.2.840.1 [id number] Methodi 00:00:00 00:00:00 , Juliette 05518.1.[address] 3.430.2.7 Hospit a .3.203549 l .8 2021-08-06 2021-08-06 Travel 1.2.840.1 1.2.310.601 [id number] Methodi 00:00:00 00:00:[address] 3.430.2.7 0.2.7.3.698 Ho spita .3.785451 084.8 l .8 2021-07-16 2021-07-16 Telephone [facility] 1.2.852.616 [id number] Univers 00:00:00 00:00:00 Ena Cam 350.1.13.10 [place] [phone] Ia dical nal 204 [facility] 2021-07-15 2021-07-15 [facility] [id number] Univers 15:00:00 15:39:32 ENA peres [facility] 2021-07-15 2021-07-15 Office [facility] 1.2.840.114 [id number] Univers 14:42:07 15:39:32 Visit Ena Cam 350.1.13.10 [place] [phone] Ia dical nal 204 [facility] 2021-07-15 2021-07-15 Outpatient R RANULFO [facility] [id number] Univers 14:40:00 14:40:00 RY peres [facility] 2021-07-15 2021-07-15 Imm/Inj Nurse, Adc Pob Immunization [facility] 1.2.840.114 [id number] Univers 14:34:57 14:35:05 Visit Ry [place] 350.1.13 .10 it[place] [phone] Ia dical nal 421 [facility] 2021-07-10 2021-07-10 Outpatient [facility] [id number] Univers 14:30:00 14:30:00 ENA peres [facility] 2021-07-05 2021-07-05 Telephone [facility] 1.2.755.671 [id number] Univers 00:00:00 00:00:00 Ena Cam 350.1.13.10 [place] [phone] Ia dical nal 204 [facility] 2021-07-05 2021-07-05 Orders Doctor SREE 1.2.840.114 [id number] Univers 00:00:00 00:00:00 Only Unassigned, ELSIE 350.1.13.10 ity of [place] [facility] 4.2.7.2.686 Guido as [phone] [address] 2021-07-04 2021-07-04 Telephone Ronal [facility] 1.2.840.114 [id number] Univers 00:00:00 00:00:00 Flaco Corina 350.1.13.10 i ty [place] [phone] Ia dical nal [address] [place] [address] 2021-05-27 2021-05-27 Outpatient R RONAL [facility] [id number] Univers 11:30:00 11:30:00 [facility] [place] 2021-02-05 2021-02-05 Outpatient [facility] [id number] [address] [place] [address] 00:00:00 00:00:00 CHARUDATTA 959 Met [facility] 2021-01-28 2021-01-28 Outpatient [facility] [id number] [place] [address] 00:00:00 00:00:00 STEVENTTA 083 Met [facility] 2021-01-17 2021-01-17 Outpatient Nikkie BHAKTA [facility] [id number] Univers 12:00:00 11:21:21 TOR [facility] 2020-12-26 2020-12-26 Outpatient Nikkie BHAKTA [facility] [id number] Univers 12:00:00 11:13:50 TOR [facility] 2020-12-19 2020-12-19 Outpatient [facility] [id number] Univers 14:30:00 14:30:00 ENA peres [facility] 2020-09-29 2020-09-29 Telephone [facility] 1.2.899.198 [id number] Univers 00:00:00 00:00:00 Ena Cam 350.1.13.10 [place] [phone] Ia dical nal [address] [place] [address] 2020-09-24 2020-09-24 Case [facility] 1.2.840.114 [id number] Univers 00:00:00 00:00:00 Management Enachay Cam 350.1.13.10 [place] [phone] Ia dical nal [address] [place] [address] 2020-09-22 2020-09-22 Telephone [facility] 1.2.512.239 [id number] Univers 00:00:00 00:00:00 Ena Cam 350.1.13.10 [place] [phone] [address] 2020-09-19 2020-09-19 Office [facility] 1.2.840.114 [id number] Univers 15:06:02 15:58:17 Visit Ena Cam 350.1.13.10 [place] [phone] [facility] nal [address] [place] [address] 2020-09-19 2020-09-19 Outpatient [facility] [id number] Univers 15:15:00 15:15:00 ENA peres [facility] 2020-09-12 2020-09-12 Outpatient [facility] [id number] Univers 13:30:00 13:30:00 ENA peres [facility] 2020-08-29 2020-08-29 Outpatient [facility] [id number] Univers 13:30:00 13:30:00 ENA [facility] 2020-07-25 2020-07-27 Inpatient [facility] [id number] Advance 00:00:00 00:00:[address] 2020-07-05 2020-07-05 Office [facility] 1.2.840.114 [id number] Univers 14:53:28 16:00:47 Visit Flaco Cam 350.1.13.10 i ty [place] [phone] Me dical [address] 2020-07-05 2020-07-05 [facility] 1.2.840.114 [id number] 14:53:28 16:00:47 Visit Flaco Cam 350.1.13.10 [place] 4.2.7.2.686 Professio [phone] [address] 2020-07-05 2020-07-05 Outpatient [facility] [id number] Univers 15:00:00 15:00:00 [facility] 2020-07-05 2020-07-05 Orders Doctor SREE 1.2.840.114 [id number] [facility] 00:00:00 00:00:00 Only Unassigned, ELSIE 350.1.13.10 ity of [place] [facility] 4.2.7.2.686 Guido as [phone] [address] 2020-06-14 2020-06-14 Outpatient [facility] [id number] Univers 11:00:00 11:00:00 [facility] 2017-07-14 2017-07-14 Outpatient Batsheva MEHTA [facility] [id number] [facility] 10:47:00 10:47:00 [facility] Results Test Description Test Time Test Comments Results Result Comments Source POCT URINALYSIS, INSTRUMENT 2022-07-30 15:45:00 Test Item Value Reference Range Interpretation Comme nts POCT U SP GRAV (test code = 3255) 1.025 mg/dl 1.005-1.025 POCT PH U (test code = 3254) 5.5 mg/dl 5-8 POCT U LEUK EST (test [...] POCT U COLOR (test code = 3266) Yellow POCT U APPEAR (test code = 3267) [facility] [id number] 15:45:00 Test Item Value Reference Range Interpretation Comments POCT U SP GRAV (test code = 1.025 mg/dl 1.005-1.025 3255) POCT PH U (test code = 3254) 5.5 mg/dl 5-8 POCT U LEUK EST (test code = Negative Negative - Negative 3263) POCT U NIT (test code = 3262) Negative Negative - Negative POCT U PROT (test code = Negative Negative - Negative 3259) POCT U GLU (test code = 3256) Negative Negative - Negative POCT U KETONE (test code = Negative Negative - Negative 3258) POCT U UROBILI (test code = 0.2 mg/dl 0.2-1 3260) POCT U BILI (test code = Negative Negative - Negative 3261) POCT U BLD (test code = 3257) Negative Negative - Negative POCT U COLOR (test code = Yellow 3266) POCT U APPEAR (test code = Color 3267) [facility] URINALYSIS, [id number] 15:45:00 Test Item Value Reference Range Interpretation Comments POCT U SP GRAV (test code = 1.025 mg/dl 1.005-1.025 3255) POCT PH U (test code = 3254) 5.5 mg/dl 5-8 POCT U LEUK EST (test code = Negative Negative - Negative 3263) POCT U NIT (test code = 3262) Negative Negative - Negative POCT U PROT (test code = Negative Negative - Negative 3259) POCT U GLU (test code = 3256) Negative Negative - Negative POCT U KETONE (test code = Negative Negative - Negative 3258) POCT U UROBILI (test code = 0.2 mg/dl 0.2-1 3260) POCT U BILI (test code = Negative Negative - Negative 3261) POCT U BLD (test code = 3257) Negative Negative - Negative POCT U COLOR (test code = Yellow 3266) POCT U APPEAR (test code = Color 3267) [facility], [id number] 20:05:00 Test Item Value Reference Range Interpretation Comments POCT U SP GRAV (test code = 1.015 mg/dl 1.005-1.025 3255) POCT PH U (test code = 3254) 6.0 mg/dl 5-8 POCT U LEUK EST (test code = Negative Negative - Negative 3263) POCT U NIT (test code = 3262) Negative Negative - Negative POCT U PROT (test code = Negative Negative - Negative 3259) POCT U GLU (test code = 3256) Negative Negative - Negative POCT U KETONE (test code = Negative Negative - Negative 3258) POCT U UROBILI (test code = 0.2 mg/dl 0.2-1 3260) POCT U BILI (test code = Negative Negative - Negative 3261) POCT U BLD (test code = 3257) Negative Negative - Negative POCT U COLOR (test code = yellow 3266) POCT U APPEAR (test code = clear 3267) [facility] (COVID-19) RNA [Presence] in Respiratory specimen by LESLY with probe [id number] 01:26:43 Test Item Value Reference Range Interpretation Comments SARS-CoV-2 (COVID-19) RNA Not detected Not-Detected [Presence] in Respiratory specimen by LESLY with probe detection (test code = 31713-6) NAIMA HERNADEZ WESTPROTHROMBIN [id number] 13:38:00 Test Item Value Reference Range Interpretation Comments PROTHROMBIN TIME 11.7 SECONDS 9.3-12.9 N PATIENT (test code = PTP) INTERNATIONAL NORMAL 1.1 0.8-1.2 N TARGET INR BY RATIO (test code = INDICATIO N Indication INR) INR1. Prophylax is of venous thrombos is 2.0 - 3.0 (orthoped ic surgery), Proph ylaxis of venous throm bosis (other than hig h-risk surgery), Treat ment of Deep Vein Thrombosis/Pulm onary Embolism, Preve ntion of systemic emb olism - Tissue heart va lves, Acute Myocardia l Infarction (to prevent systemic emboli sm), Valvular heart disease, Atrial Fibrillation, Bileaflet mecha nical valve in aortic position.2. Mec hanical prosthetic valv es (high risk), 2. 5 - 3.5 Presence of Lup us Anticoagulant o r Antiphospholipi d Antibodies, Pre vention of systemic emb olism - Acute Myocardia l Infarction (to prevent recurrent infar ct). BASIC METABOLIC [id number] 13:33:00 Test Item Value Reference Range Interpretation [...] 8.0-10.5 N CA) - XR CHEST 1 [id number] 13:30:00 FAX: Tania Melendez [phone] [place]: St: REG Name: MARIA JASSO [facility] : 1940 Age/S: 79/M [address] [place] [address] Blvd Unit #: [id number] Loc: [place] [address] Phys: Tania Dozier MD Acct: [id number] Dis Date: Status: REG SD PHONE #: [phone] Exam Date: 11/24/2019 1327 FAX #: [phone] Reason: PRE PROCEDURE EXAMS: CPT CODE: [id number] XR CHEST 1 V [id number] Exam: Chest radiograph frontal view Indication: 79-year-old male, preprocedure. Comparison: None. Technique:Chest radiograph frontal view. Findings: The cardiomediastinal silhouette is within normal limits. There are multiple median sternotomy wires. There is a left pectoral implantable cardiac device. Thereis no focal airspace consolidation. No pleural effusion. No pneumothorax. No acute osseous abnormality. Impression: No acute cardiopulmonary disease. SL: [id number] at 1330 Reported and signed by: Jared West M.D. CC: Tania Dozier MD Technologist: NIDA Rueda) Trnscrd Date/Time/By: 11/24/2019 (2009) : By: [email or web address] Orig Print D/T: S: 11/24/2019 (9201) PAGE 1 Signed ReportBASIC METABOLIC [id number] 13:24:00 Test Item Value Reference Range Interpretation [...] CA) 9.3 mg/dL 8.0-10.5 N CBC W/AUTO [id number] 13:13:00 Test Item Value Reference Range Interpretation [...]
--- NOTE | 2022-08-05 13:52 | RAD REPORT ---
EXAM DESCRIPTION: RAD - Chest Single View - 08/05/2022 1:40 pm CLINICAL HISTORY: CHEST PAIN COMPARISON: Chest Single View dated 02/16/2022; Chest Single View dated 07/25/2020; Chest Pa And Lat ( 2 Views) dated 03/14/2019; Chest Single View dated 01/21/2019 FINDINGS: Lines: Pacemaker/ICD. Lungs: No evidence of edema or pneumonia. Pleural: No significant pleural effusions or pneumothorax. Cardiac: The heart size is within normal limits. Mediastinum: Within normal limits. Bones: No acute fractures. Sternotomy. Other: None IMPRESSION: No acute cardiopulmonary disease.
[2022-08-05 14:15] LABS: SARS-CoV-2 Antigen Rapid Res Negative (Negative)
[2022-08-05 14:26] LABS: Absolute Lymphocytes (CBC) 1.2 K/uL (0.7-4.9); Hematocrit 37.9 % (39.6-49.0); Lymphocytes % 14.2 % (15.3-44.8); MCV 91.3 fL (80-100); MPV 8.3 fL (7.6-11.3); RBC Red Blood Cell Count 4.15 M/uL (4.33-5.43)
[2022-08-05 14:27] LABS: Protime INR 1.04
[2022-08-05 14:37] LABS: Albumin 3.2 g/dL (3.4-5.0); Bilirubin Direct 0.2 mg/dL (0-0.2); Bilirubin Total 0.6 mg/dL (0.2-1.0); Magnesium 2.2 mg/dL (1.8-2.4); Potassium 4.2 mmol/L (3.5-5.1); Protein, Total 6.3 g/dL (6.4-8.2); Troponin High Sensitivity 24.1 pg/mL (<58.9)
--- NOTE | 2022-08-05 14:56 | ER ---
Nurse's Notes [facility] Name: Jair Jasso Age: 82 yrs Sex: Male : 1940 Arrival Date: 08/05/2022 Time: 12:35 Bed 13 Private MD: Diagnosis: Chest pain, unspecified Presentation: 08/05 12:36 Chief complaint: EMS states: CHEST PAIN. Coronavirus screen: At this time, the client bp does not indicate any symptoms associated with coronavirus-19. Ebola Screen: No symptoms or risks identified at this time. Initial Sepsis Screen: Does the patient meet any 2 criteria? No. Patient's initial sepsis screen is negative. Does the patient have a suspected source of infection? No. Patient's initial sepsis screen is negative. Risk Assessment: Do you want to hurt yourself or someone else? Patient reports no desire to harm self or others. Onset of symptoms was August 05, 2022 at 11:00. Care prior to arrival: Medication(s) given: Nitroglycerin, 0.4 mg SL x 1. 12:36 Method Of Arrival: EMS: [facility] bp 12:36 Acuity: SILVIA 3 bp 12:37 Note PT REFUSING PIV BY EMS AND ER STAFF. bp Triage Assessment: 12:45 General: Appears in no apparent distress. comfortable, Behavior is calm, cooperative, bp appropriate for age. Pain: Denies pain. EENT: No deficits noted. Neuro: No deficits noted. Cardiovascular: Rhythm is Respiratory: No deficits noted. GI: No signs and/or symptoms were reported involving the gastrointestinal system. : No signs and/or symptoms were reported regarding the genitourinary system. Derm: No deficits noted. Musculoskeletal: No deficits noted. Historical: - Allergies: 12:37 PENICILLINS; bp - PMHx: 12:37 AAA; CHF; COPD; Hypertensive disorder; Myocardial infarction; bp - Immunization history:: Adult Immunizations up to date. - Social history:: Smoking status: Patient denies any tobacco usage or history of. Screenin:45 Abuse screen: Denies threats or abuse. Denies injuries from another. Nutritional bp screening: No deficits noted. Tuberculosis screening: No symptoms or risk factors identified. Fall Risk None identified. Assessment: 12:45 General: SEE TRIAGE NOTE. bp 14:00 Reassessment: No changes from previously documented assessment. Patient and/or family bp updated on plan of care and expected duration. Pain level reassessed. 16:00 Reassessment: ADMIT INITIATED. bp 19:37 General: Appears comfortable, Behavior is calm, cooperative. Pain: Denies pain. Neuro: ha1 Level of Consciousness is awake, alert, obeys commands, Oriented to person, place, time, situation. Cardiovascular: Heart tones S1 S2 present Patient's skin is warm and dry. Rhythm is sinus rhythm. Respiratory: Airway is patent Trachea midline Respiratory effort is even, unlabored, Respiratory pattern is regular, symmetrical. Musculoskeletal: Circulation, motion, and sensation intact. Range of motion: intact in all extremities. Vital Signs: 12:36 BP 120 / 80; Pulse 97; Resp 16; Temp 98; Pulse Ox 100% ; bp 14:00 BP 143 / 96; Pulse 60; Resp 18; Pulse Ox 99% ; bp 15:00 BP 112 / 46; Pulse 59; Resp 16; Pulse Ox 98% ; bp 16:00 BP 120 / 49; Pulse 60; Resp 16; Pulse Ox 99% ; bp 19:34 BP 116 / 54; Pulse 60; Resp 17 S; Pulse Ox 95% on R/A; ha1 ED Course: 12:35 Patient arrived in ED. bp 12:36 Triage completed. bp 12:45 Patient has correct armband on for positive identification. Bed in low position. Call bp light in reach. Side rails up X2. Client placed on continuous cardiac and pulse oximetry monitoring. NIBP monitoring applied. 12:54 Geovanny Powell NP is PHCP. pm1 12:54 Ghanshyam Parra MD is Attending Physician. pm1 13:40 Lauro Arias, ARCHANA is Primary Nurse. bp 13:42 XRAY Chest (1 view) In Process Unspecified. EDMS 13:56 Inserted saline lock: 20 gauge in left wrist, using aseptic technique. Blood collected. bp 14:56 Samy Riggins MD is Hospitalizing Provider. pm1 15:39 Yvan Gibson MD is Hospitalizing Provider. pm1 19:57 No provider procedures requiring assistance completed. Patient admitted, IV remains in ha1 place. Patient maintains SpO2 saturation greater than 95% on room air. 19:58 Arm band placed on right wrist. ha1 Administered Medications: No medications were administered Medication: 19:58 VIS not applicable for this client. ha1 Outcome: 14:56 Decision to Hospitalize by Provider. pm1 19:57 Admitted to Med/surg accompanied by tech, via wheelchair, room 415. ha1 19:57 Condition: stable 19:57 Discharge instructions given to patient, Instructed on the need for admit, Demonstrated understanding of instructions. 20:25 Patient left the ED. ha1 Signatures: Dispatcher [employer] EDMS Geovanny Powell NP SAP BI DEVELOPER pm1 Lauro Arias, ARCHANA RN Holly Maya, RN RN ha1
--- NOTE | 2022-08-05 14:56 | EDPHYS ---
Physician Documentation [facility] Name: Jair Jasso Age: 82 yrs Sex: Male : 1940 Arrival Date: 08/05/2022 Time: 12:35 Bed 13 Private MD: ED Physician Ghanshyam Parra HPI: 08/05 13:04 This 82 yrs old Male presents to ER via EMS with complaints of Chest Pain. pm1 13:04 The patient or guardian reports chest pain that is located primarily in the mid-sternal pm1 area. Onset: this morning. The pain does not radiate. Associated signs and symptoms: The patient has no apparent associated signs or symptoms, Pertinent negatives: abdominal pain, cough, diaphoresis, dizziness, headache, nausea, shortness of breath, vomiting. The chest pain is described as a pressure. Duration: The patient or guardian reports a single episode, that lasted 10 minute(s). Modifying factors: The symptoms are alleviated by NTG, X1. the symptoms are aggravated by nothing. Severity of pain: in the emergency department the pain has resolved after taking nitro x 1. The patient has experienced similar episodes in the past, patient reports monthly chest pain that resolves, sometimes requiring nitro for treatment. The patient has not recently seen a physician, Child Custody Evaluator - [place] PCP - Arthur. Historical: - Allergies: 12:37 PENICILLINS; bp - PMHx: 12:37 AAA; CHF; COPD; Hypertensive disorder; Myocardial infarction; bp - Immunization history:: Adult Immunizations up to date. - Social history:: Smoking status: Patient denies any tobacco usage or history of. ROS: 13:04 Constitutional: Negative for fever, chills, and weight loss. pm1 13:04 Abdomen/GI: Negative for abdominal pain, nausea, vomiting, diarrhea, and constipation, Back: Negative for injury and pain, MS/Extremity: Negative for injury and deformity, Skin: Negative for injury, rash, and discoloration, Neuro: Negative for headache, weakness, numbness, tingling, and seizure. 13:04 Cardiovascular: Positive for chest pain, Negative for edema, orthopnea, palpitations. 13:04 Respiratory: Positive for baseline shortness of breath from COPD. No increased shortness of breath. 13:04 All other systems are negative. Exam: 13:04 Constitutional: This is a well developed, well nourished patient who is awake, alert, pm1 and in no acute distress. Head/Face: Normocephalic, atraumatic. 13:04 Back: No spinal tenderness. No costovertebral tenderness. Full range of motion. Skin: Warm, dry with normal turgor. Normal color with no rashes, no lesions, and no evidence of cellulitis. MS/ Extremity: Pulses equal, no cyanosis. Neurovascular intact. Full, normal range of motion. 13:04 Eyes: Exam is negative for acute changes, Periorbital structures: no acute changes, Pupils: no acute changes, Extraocular movements: no acute changes, Conjunctiva: no acute changes, no injection. 13:04 ENT: Exam is negative for acute changes, Mouth: no acute changes, Lips: normal, moist, Oral mucosa: normal, pink and intact, moist. 13:04 Cardiovascular: Exam negative for acute changes, Rate: normal, Rhythm: regular, Pulses: no pulse deficits are appreciated, Edema: pedal edema, that is mild. 13:04 Respiratory: Exam negative for acute changes, the patient does not display signs of respiratory distress, Respirations: no acute changes, Breath sounds: are clear throughout. 13:04 Abdomen/GI: Inspection: obese Palpation: abdomen is soft and non-tender, in all quadrants. 13:04 Neuro: Exam negative for acute changes, Orientation: is normal, Mentation: is normal, Motor: moves all fours. 13:04 ECG was reviewed by the Attending Physician. pm1 Vital Signs: 12:36 BP 120 / 80; Pulse 97; Resp 16; Temp 98; Pulse Ox 100% ; bp 14:00 BP 143 / 96; Pulse 60; Resp 18; Pulse Ox 99% ; bp 15:00 BP 112 / 46; Pulse 59; Resp 16; Pulse Ox 98% ; bp 16:00 BP 120 / 49; Pulse 60; Resp 16; Pulse Ox 99% ; bp 19:34 BP 116 / 54; Pulse 60; Resp 17 S; Pulse Ox 95% on R/A; ha1 MDM: 12:54 Patient medically screened. pm1 13:22 Data reviewed: vital signs. Data interpreted: Pulse oximetry: on room air is 100 %. pm1 Interpretation: normal. 14:55 Counseling: I had a detailed discussion with the patient and/or guardian regarding: the pm1 historical points, exam findings, and any diagnostic results supporting the discharge/admit diagnosis, lab results, radiology results, the need for further work-up and treatment in the hospital. 15:40 Physician consultation: Yvan Gibson MD was contacted at 15:40, regarding admission, pm1 patient's condition, and will see patient later today, would like consultation with Dr. Herbert, would like further tests performed, serial troponins. 16:50 Physician consultation: Yvan Gibson MD in the emergency department to see patient at pm1 16:50, would like Morphine 2 mg IV prn chest pain. 08/05 13:04 Order name: Basic Metabolic Panel; Complete Time: 14:45 pm1 08/05 13:04 Order name: CBC with Diff; Complete Time: 14:45 pm1 08/05 13:04 Order name: LFT's; Complete Time: 14:45 pm1 08/05 13:04 Order name: Magnesium; Complete Time: 14:45 pm1 08/05 13:04 Order name: NT PRO-BNP; Complete Time: 14:45 pm1 08/05 13:04 Order name: PT-INR; Complete Time: 14:45 pm1 08/05 13:04 Order name: Troponin HS; Complete Time: 14:45 pm1 08/05 13:04 Order name: XRAY Chest (1 view); Complete Time: 14:02 pm1 08/05 13:04 Order name: EKG; Complete Time: 13:05 pm1 08/05 13:04 Order name: Cardiac monitoring; Complete Time: 13:40 pm1 08/05 13:04 Order name: EKG - Nurse/Tech; Complete Time: 13:40 pm1 08/05 13:04 Order name: IV Saline Lock; Complete Time: 13:56 pm1 08/05 13:04 Order name: Labs collected and sent; Complete Time: 13:56 pm1 08/05 13:04 Order name: SARS RAPID; Complete Time: 14:26 pm1 08/05 13:04 Order name: O2 Per Protocol; Complete Time: 13:40 pm1 08/05 13:04 Order name: O2 Sat Monitoring; Complete Time: 13:40 pm1 EC:04 Rate is 62 beats/min. Rhythm is regular, Paced with No ectopy. No Q waves. T waves are pm1 Normal. No ST changes noted. Clinical impression: Ventricular paced rhythm. Abnormal EKG. Administered Medications: No medications were administered Disposition Summary: 08/05/22 14:56 Hospitalization Ordered Hospitalization Status: Observation [facility]1 [facility] Condition: Stable pm1 Problem: new pm1 Symptoms: have improved pm1 Bed/Room Type: Standard pm1 Provider: Yvan Gibson(08/05/22 15:39) pm1 Room Assignment: [facility](08/05/22 19:01) Diagnosis - Chest pain, unspecified pm1 Forms: - Medication Reconciliation Form pm1 - SBAR form pm1 Signatures: Dispatcher [employer] EDMS Analia Turner RN RN ss Geovanny Powell, [employer] EQUIPMENT MECHANIC APPRENTICE pm1 Lauro Arias RN RN bp Corrections: (The following items were deleted from the chart) 15:39 14:56 Samy Riggins pm1 pm1 19:01 14:56 pm1 ss
[2022-08-05 20:52] VITALS: O2SAT 95
--- NOTE | 2022-08-05 21:15 | P.HP ---
Certification for Inpatient Patient admitted to: Observation With expected LOS: <2 Midnights Patient will require the following post-hospital care: None Practitioner: I am a practitioner with admitting privileges, knowledge of patient current condition, hospital course, and medical plan of care. Services: Services provided to patient in accordance with Admission requirements found in Title 42 Section 412.3 of the Code of Federal Regulations Patient History Date of Service: 08/05/22 Primary Care Provider: Arthur Reason for admission: chest pain History of Present Illness: Patient is an office patient mine. He has a history of CAD s/p cabg. AAA, htn and gout. The patient was about to lay down and take a nap when he started getting some chest pressure. States it was a 4/10. He took some NTG which resolved the patient. He occasionaly has pain which resolves with NTG. The patients last episode was a month ago. He states it was a substernal pressure with no radiation. It was more intense than his previous episodes which he ranks as a 2 or 3/10. His animal care technician called ems. The patient had a negative cxr and initial troponin was negative. However given his previous history it would be safer to keep him in observation Allergies Penicillins Allergy (Intermediate, Verified 01/22/19 01:06) Hives Home Medications: Furosemide [Lasix*] 40 mg PO BID 11/15/13 Metoprolol Succinate [Toprol Xl*] 50 mg PO DAILY 11/15/13 Atorvastatin Calcium [Lipitor] 80 mg PO DAILY 05/04/17 Fluticasone/Vilanterol [Breo Ellipta 100-25 Mcg INH] 1 each IH DAILY 05/04/17 Omeprazole 20 mg PO DAILY 07/26/18 Ipratropium/Albuterol Sulfate [Iprat-Albut 0.5-3(2.5) mg/3 ml] 1 amp IH Q3H 01/22/19 Sacubitril/Valsartan [Entresto 24 mg-26 mg Tablet] 1 tab PO BID 01/22/19 allopurinoL [Zyloprim*] 100 mg PO BID 01/22/19 - Past Medical/Surgical History Diabetic: No -: CHF -: COPD -: PACEMAKER -: BPH -: CHRONIC CONSTIPATION -: AAA -: CAD -: High Cholesterol -: M.I. x 3 -: neuropathy -: AAA -: L elbow bursectomy, AAA resection -: tonsillectomy -: umbilectomy -: upper blephroplasty -: cardiac triple bypass -: hemorrhoidectomy -: polyp removal, MIX3, umbilical hernia repair, -: apendectomy - Family History Father -: Lung disease, Cancer Notes: LUNG DISEASE Mother Notes: AAA Sister Notes: NO HISTORY - Social History Alcohol use: Yes CD- Drugs: No Caffeine use: Yes Review of Systems 10-point ROS is otherwise unremarkable Cardiovascular: Chest Pain Physical Examination - Vital Signs Temperature: 98 F Blood Pressure: 116/54 Pulse: 60 Respirations: 17 - Physical Exam General: Alert, In no apparent distress HEENT: Atraumatic, PERRLA, Mucous membr. moist/pink, EOMI, Sclerae nonicteric Neck: Supple, 2+ carotid pulse no bruit, No LAD, Without JVD or thyroid abnormality Respiratory: Clear to auscultation bilaterally, Normal air movement Cardiovascular: Regular rate/rhythm, Normal S1 S2 Gastrointestinal: Normal bowel sounds, No tenderness Musculoskeletal: No tenderness Integumentary: No rashes Neurological: Normal gait, Normal speech, Normal strength at 5/5 x4 extr, Normal tone, Normal affect Lymphatics: No axilla or inguinal lymphadenopathy - Studies Laboratory Data (last 24 hrs) 08/05/22 14:00: PT 11.4, INR 1.04 08/05/22 14:00: WBC 8.30, Hgb 12.5 L, Hct 37.9 L, Plt Count 211 08/05/22 14:00: Sodium 140, Potassium 4.2, BUN 23 H, Creatinine 1.69 H, Glucose 109 H, Magnesium 2.2, Total Bilirubin 0.6, AST 13 L, ALT 21, Alkaline Phosphatase 103 Assessment and Plan - Problems (Diagnosis) (1) Angina pectoris, unspecified Onset Date: 11/05/17 Current Visit: No Status: Acute Plan: will continue serial troponins. Consult to Dr. Herbert (2) HTN (hypertension) Current Visit: Yes Status: Acute Plan: Continue home meds. Will adjust as necessary Qualifiers: Hypertension type: primary hypertension Qualified Code(s): I10 - Essential (primary) hypertension (3) IBS (irritable bowel syndrome) Current Visit: Yes Status: Chronic Plan: He seems to be doing better on linzess. has been having easier bowel movement. Thought they do wear him out Qualifiers: Irritable bowel syndrome type: with constipation Qualified Code(s): K58.1 - Irritable bowel syndrome with constipation (4) Gout Onset Date: 06/19/15 Current Visit: No Status: Inactive Plan: Patient is stable. Will check a uric acid level Qualifiers: Gout site: unspecified site Encounter type: subsequent encounter Chronicity: chronic Presence of tophus: without tophus Discharge Plan: Home Plan to discharge in: 24 Hours - Advance Directives Does patient have a Living Will: Yes Does patient have a Durable POA for Healthcare: Yes - Code Status/Comfort Care Code Status Assessed: Yes Code Status: Full Code Physician Review: Patient Assessed, Agree with Above Assessment and Plan Critical Care: No Time Spent Managing Pts Care (In Minutes): 50
[2022-08-05] MEDS ORDERED: MORPHINE 2 MG/ML SYR IV PRN (21:20)
[2022-08-05 21:51] VITALS: BMI 28.3
[2022-08-05 22:49] LABS: Thyroid Stimulating Hormone 0.975 uIU/mL (0.360-3.740); Troponin High Sensitivity 28.3 pg/mL (<58.9); Uric Acid 5.8 mg/dL (3.5-7.2)
[2022-08-05] MEDS ORDERED: TAMSULOSIN 0.4 MG SR CAP PO ONE (22:50)
[2022-08-06 03:50] LABS: Absolute Lymphocytes (CBC) 1.4 K/uL (0.7-4.9); Hematocrit 34.4 % (39.6-49.0); Lymphocytes % 20.3 % (15.3-44.8); MPV 8.1 fL (7.6-11.3); RBC Red Blood Cell Count 3.78 M/uL (4.33-5.43)
[2022-08-06 04:07] LABS: Potassium 3.8 mmol/L (3.5-5.1); Thyroid Stimulating Hormone 0.716 uIU/mL (0.360-3.740)
[2022-08-06] MEDS ORDERED: PANTOPRAZOLE 40MG TABLET PO SCH (06:30)
[2022-08-06] MEDS ORDERED: DULERA 100/5 (MOMETASONE/FORMOTEROL) INHALER IH SCH ×2 (08:00→20:00)
[2022-08-06] MEDS ORDERED: SACUBITRIL/VALSARTAN 24/26 MG TAB PO SCH (09:00)
[2022-08-06] MEDS ORDERED: ATORVASTATIN 80 MG TAB PO SCH (09:00)
[2022-08-06] MEDS ORDERED: METOPROLOL XL 50 MG TAB PO SCH (09:00)
[2022-08-06] MEDS ORDERED: TAMSULOSIN 0.4 MG SR CAP PO SCH (09:00)
[2022-08-06] MEDS ORDERED: allopurinoL 100 MG TAB PO SCH (09:00)
[2022-08-06 09:22] VITALS: BP 137/69; TEMP 97.6
--- NOTE | 2022-08-06 13:08 | EKG ---
Test Date: 2022-08-05 Test Time: 12:38:37 Hedge Fund Manager: BP MEASUREMENT RESULTS: Intervals: Rate: 62 SC: QRSD: 162 QT: 512 QTc: 519 [place]: P: SC: QRS: 269 T: 101 INTERPRETIVE STATEMENTS: Ventricular-paced rhythm Abnormal ECG Compared to ECG 02/16/2022 09:56:50 No significant changes Electronically Signed On 08-06-22 13:06:53 CDT by Yovani Harding
--- NOTE | 2022-08-06 14:28 | P.DS ---
Admission Date: 08/05/22 Discharge Date: 08/06/22 Primary Care Provider: Arthur Disposition: ROUTINE DISCHARGE Discharge Condition: GOOD Reason for Admission: chest pain - Problems (1) Angina pectoris, unspecified Onset Date: 11/05/17 Current Visit: No Status: Acute (2) HTN (hypertension) Current Visit: Yes Status: Acute Qualifiers: Hypertension type: primary hypertension Qualified Code(s): I10 - Essential (primary) hypertension (3) IBS (irritable bowel syndrome) Current Visit: Yes Status: Chronic Qualifiers: Irritable bowel syndrome type: with constipation Qualified Code(s): K58.1 - Irritable bowel syndrome with constipation (4) Gout Onset Date: 06/19/15 Current Visit: No Status: Inactive Qualifiers: Gout site: unspecified site Encounter type: subsequent encounter Chronicity: chronic Presence of tophus: without tophus Brief History of Present Illness: Patient is an office patient mine. He has a history of CAD s/p cabg. AAA, htn and gout. The patient was about to lay down and take a nap when he started getting some chest pressure. States it was a 4/10. He took some NTG which resolved the patient. He occasionaly has pain which resolves with NTG. The patients last episode was a month ago. He states it was a substernal pressure with no radiation. It was more intense than his previous episodes which he ranks as a 2 or 3/10. His childcare administrator called ems. The patient had a negative cxr and initial troponin was negative. However given his previous history it would be safer to keep him in observation Hospital Course: Patient was admitted for angina. He had no further episodes. His troponins were all negative. Discussed the patient with Dr. Harding. Plan is for an outpatient stress test. Will have him follow up in the office. Vital Signs/Physical Exam: Temp Pulse Resp BP Pulse Ox 97.6 F 60 16 137/69 97 08/06/22 09:00 08/06/22 09:47 08/06/22 09:00 08/06/22 09:47 08/06/22 09:00 General: Alert, In no apparent distress HEENT: Atraumatic, PERRLA, EOMI Neck: Supple, JVD not distended Respiratory: Clear to auscultation bilaterally, Normal air movement Cardiovascular: Regular rate/rhythm, Normal S1 S2 Gastrointestinal: Normal bowel sounds, No tenderness Musculoskeletal: No tenderness Integumentary: No rashes Neurological: Normal speech, Normal tone, Normal affect Lymphatics: No axilla or inguinal lymphadenopathy Laboratory Data at Discharge: WBC 6.70 K/uL (4.3-10.9) 08/06/22 03:04 Hgb 11.6 g/dL (13.6-17.9) L 08/06/22 03:04 Hct 34.4 % (39.6-49.0) L 08/06/22 03:04 Plt Count 199 K/uL (152-406) 08/06/22 03:04 PT 11.4 SECONDS (9.5-12.5) 08/05/22 14:00 INR 1.04 08/05/22 14:00 Sodium 141 mmol/L (136-145) 08/06/22 03:04 Potassium 3.8 mmol/L (3.5-5.1) 08/06/22 03:04 BUN 22 mg/dL (7-18) H 08/06/22 03:04 Creatinine 1.41 mg/dL (0.55-1.3) H 08/06/22 03:04 Glucose 93 mg/dL (74-106) 08/06/22 03:04 Uric Acid Cancelled 08/05/22 Unknown Magnesium 2.2 mg/dL (1.8-2.4) 08/05/22 14:00 Total Bilirubin 0.6 mg/dL (0.2-1.0) 08/05/22 14:00 AST 13 U/L (15-37) L 08/05/22 14:00 ALT 21 U/L (12-78) 08/05/22 14:00 Alkaline Phosphatase 103 U/L (45-117) 08/05/22 14:00 Home Medications: Furosemide [Lasix*] 40 mg PO QOD QID 11/15/13 Metoprolol Succinate [Toprol Xl*] 50 mg PO DAILY 11/15/13 Atorvastatin Calcium [Lipitor] 80 mg PO DAILY 05/04/17 Fluticasone/Vilanterol [Breo Ellipta 100-25 Mcg INH] 1 each IH DAILY 05/04/17 Omeprazole 20 mg PO DAILY 07/26/18 Ipratropium/Albuterol Sulfate [Iprat-Albut 0.5-3(2.5) mg/3 ml] 1 amp IH Q3H 01/22/19 allopurinoL [Zyloprim*] 100 mg PO BID 01/22/19 Diphenhydramine HCl [Benadryl Allergy] 25 mg PO PRN 08/05/22 Finasteride 5 mg PO DAILY 08/05/22 Lubiprostone 24 mcg IH BID 08/05/22 Nitroglycerin [Nitrostat*] 0.4 mg PO PRN PRN 08/05/22 Tamsulosin [Flomax*] 0.4 mg PO DAILY 08/05/22 Diet: AHA Activity: Ad julai Followup: Nick Herbert MD [ACTIVE - CAN ADMIT] - 1 Week Yvan Gibson MD [Primary Care Provider] - 1-2 Weeks Physician Review: Patient Assessed, Agree with Above Assessment and Plan Time spent managing pt's care (in minutes): 30
--- NOTE | 2022-08-06 16:59 | CON ---
Date of Consultation: 08/06/2022 Reason For Consultation: Chest pain. History Of Present Illness: This is an 82-year-old male with history of coronary artery disease, sta tus post 3-vessel CABG in 1989, history of peripheral vascular disease, AAA, hypertension, presented to the emergency room because getting some chest pressure that resolves with nitroglycerin. Pain hap pened about a month ago and no further chest pain since hospitalization. He has been up and around a nd denies having any exertional chest pain per Se. Past Medical History: As outlined above in HPI. Medications: Refer to reconciliation sheet for detailed list. Allergies: PENICILLIN. Family History: No premature coronary artery disease or cancer. Social History: Does not smoke or drink. Does not use any drugs. Past Surgical History: AAA repair, coronary artery bypass surgery. Review of Systems: All systems reviewed and they were negative except what mentioned in HPI. Objective: Vital Signs: Temperature is 97.6, pulse 63, breathing at 16, blood pressure 137/69, satu rating 97% on room air. General: Pleasant elderly male, in no apparent distress. Head and Neck: Pupils are equal, reactive to light. Intact eye movements. No JVD. No cervical lym phadenopathy. Neck is supple. Thyroid is not enlarged. Lungs: Clear to auscultation bilaterally. No rhonchi, wheezing, or crackles. No accessory muscle u se. Heart: Regular rate and rhythm. No extra sounds. Abdomen: Soft, nontender. Bowel sounds positive. No organomegaly. No masses or hernia. No rigidi ty or rebound. Extremities: No edema, clubbing, or cyanosis. Intact pulses. Skin: No rash. Neurologic: Alert, awake, oriented x3. No acute focal deficits appreciated. Investigations: Troponin x3 are negative. BUN 22, creatinine 1.4, and hemoglobin 11.6. Assessment And Recommendations: Chest pain. No history of coronary artery disease. Pain is not exe rtional; however, it is pressure-like and it has resolved. Three cardiac enzymes were negative. At this point, since the patient is chest pain-free, the patient can be released. Follow up as an outpa tient. We will plan for Lexiscan nuclear stress test and an echo as outpatient. /JAMES Voice ID: [id number] Report ID: [id number]
[2022-08-06] MEDS ORDERED: ENOXAPARIN 40 MG/0.4 ML SQ SCH (17:00)
== END 2022-08-06 16:00 | disposition home or self-care (01) ==
LOC: ER 12:27 → ERHOLD 15:42 → 4TH 19:58
PROVIDERS: ADMIT Internal Medicine; ATTEND Internal Medicine
DX: I20.9 Angina pectoris, unspecified (principal); I25.119 Atherosclerotic heart disease of native coronary artery with unspecified angina pectoris; I73.9 Peripheral vascular disease, unspecified; M10.9 Gout, unspecified; J44.9 Chronic obstructive pulmonary disease, unspecified; N40.0 Benign prostatic hyperplasia without lower urinary tract symptoms; I11.0 Hypertensive heart disease with heart failure; I50.9 Heart failure, unspecified; K59.09 Other constipation; E78.00 Pure hypercholesterolemia, unspecified; I25.2 Old myocardial infarction; K58.9 Irritable bowel syndrome, unspecified; G62.9 Polyneuropathy, unspecified; Z80.9 Family history of malignant neoplasm, unspecified; Z88.0 Allergy status to penicillin; Z79.899 Other long term (current) drug therapy; Z95.0 Presence of cardiac pacemaker; Z95.1 Presence of aortocoronary bypass graft; Z20.822 Contact with and (suspected) exposure to COVID-19
CPT/HCPCS: 93005; 85025 ×2; 80048 ×2; 36415 ×2; 83735; 85610; 80076; 84550; 84443 ×2; 84484 ×3; 83880; 71045; 99285; 87811; J3535; G0378 ×3

== ENCOUNTER 2022-09-06 00:19 | Inpatient (IN) | payer OTHER ==
--- OUTSIDE RECORDS SUMMARY | 2022-09-06 00:25 | XMS REPORT | Continuity of Care Document ---
:[address] [facility] t Address [address] [place] [address] Dr. Armando[address] [place] [address] Care Team Providers Name Role Phone Asked, No Pcp Primary Care Physician Unavailable Tania Dozier Attending Clinician Unavailable EUSEBIA ALVARADO Attending Clinician Unavailable Eusebia Ivy Attending Clinician Doctor Unassigned, Rodney Attending Clinician Unavailable Ena Palacios Attending Clinician Viviana Yee MD Attending Clinician [phone] Abigail Khan MA Attending Clinician Unavailable Juliette [...] JORGE LUIS MEHTA Attending Clinician Unavailable VIVIANA YEE Admitting Clinician Unavailable MD VIVIANA YEE Admitting Clinician UnavailDR JORGE LUIS Mcnally Admitting Clinician Unavailable Payers Payer Name Policy Type Policy Number Effective Date Expiration Date Jose BARRETO/[employer] [id number] 2021 00:00:00 MCARE ADV CHOICE PPO CIGNA I [id number] 2020 00:00:00 Problems Condition Condition Condition Status [...] [facility] ins 2-12 Clear 00:00: [place] 00 [facility] Penicill DA Active MO HIVES [facility] ins 2-12 Clear 00:00: [place] 00 [facility] Penicill Propensi Active Hives Univer s in ty to 9-17 ity of adverse 00:00: [place] reaction 00 Medical s Branch PENICILL DRUG Active Hives Univers IN INGREDI 9-17 ity of 00:00: [place] 00 Medical Branch penicill DA Active U [facility] in V 10-14 Clear 00:00: [facility] No Known DA Active U 2007- [facility] Contrast 10-14 Clear Allergie 00:00: [place] [facility] No Known DA Active U 2007- [facility] Food 10-14 Clear Allergie 00:00: [place] [facility] No Known DA Active U 2007- [facility] Other 10-14 Clear Allergie 00:00: [place] [facility] PENICILL DA Active U RASH, 2007- [facility] IN SWELLING 10-14 Clear 00:00: [facility] Family History Family Member Diagnosis Comments Start Date Stop Date Source Natural [facility] Natural brother [facility] Natural father Cancer [facility] Social History Social Habit Start Date Stop Date Quantity Comments Source History SDOH [facility] Drinks History SDOH [facility] Exposure to 2022-07-20 2022-07-30 Not sure University SARS-CoV-2 00:00:00 10:21:00 [facility] (event) [place] Tobacco use and 2022-07-30 2022-07-30 Smokeless tobacco Un iversity of exposure 00:00:00 00:00:00 non-user [facility] Alcohol intake 2021-02-05 2021-02-05 Current drinker [facility] 00:00:00 [facility]:00 [facility] alcohol Hospital (finding) History SDOH 2020-07-26 2020-07-26 5 [facility] Frequency 00:00:00 00:00:00 [facility]osp[facility] Alcohol Comment 2020-07-25 2020-07-[address] 00:00[facility]00 00[facility]00[facility]00 night Hospital History of 2004-10-12 Cigarette Smoker [facility] of tobacco use 00:00:00 [facility] Sex Ass[birth year] [facility] 00:[facility] Smoking Status Start Date Stop Date Source Ex-smoker 2022-07-30 00:00:00 2022-07-30 00:00:00 [facility] Medications Ordered Filled Start Stop Current Ordering Indication Dosage Frequency Signature Comments Components Source Medication Medication Date Date Medication? Clinician (SIG) Name Name erick 2021-10 Yes 500mg Take 500 U nivers en 500 mg 0-19 mg by ity of tablet 11:22: mouth. [place] [address] Medical Branch sacubitriL- 2021-10 Yes 1{tbl} Take 1 [place] valsartan 0-19 tablet by ity o f (ENTRESTO) 11:22: mouth. [place] 24-26 mg 49 Medical tablet Branch acetaminoph 2021-10 Yes 500mg Take 500 U nivers en 500 mg 0-19 mg by ity of tablet 11:22: mouth. [place] [address] Medical Branch sacubitriL- 2021-10 Yes 1{tbl} Take 1 [place] valsartan 0-19 tablet by ity o f (ENTRESTO) 11:22: mouth. [place] 24-26 mg 49 Medical tablet Branch acetaminoph 2021-10 Yes 500mg Take 500 U nivers en 500 mg 0-19 mg by ity of tablet 11:22: mouth. [place] [address] Medical Branch sacubitriL- 2021-10 Yes 1{tbl} Take 1 [place] valsartan 0-19 tablet by ity o f (ENTRESTO) 11:22: mouth. [place] 24-26 mg 49 Medical tablet Branch tamsulosin 2021-10 Yes [id number] .4mg Take 1 Univers 0.4 mg 24 0-19 capsule by ity of hr capsule 00:00: mouth at [place] 00 bedtime. Medical Branch finasteride 2021-10 Yes [id number] 5mg Take 1 Univers 5 mg tablet 0-19 tablet by ity of 00:00: mouth in [place] 00 the Medical morning. Branch tamsulosin 2021-10 Yes [id number] .4mg Take 1 Univers 0.4 mg 24 0-19 capsule by ity of hr capsule 00:00: mouth at [place] 00 bedtime. Medical Branch finasteride 2021-10 Yes [id number] 5mg Take 1 Univers 5 mg tablet 0-19 tablet by ity of 00:00: mouth in [place] 00 the Medical morning. Branch tamsulosin 2021-10 Yes [id number] .4mg Take 1 Univers 0.4 mg 24 0-19 capsule by ity of hr capsule 00:00: mouth at [place] 00 bedtime. Medical Branch finasteride 2021-10 Yes [id number] 5mg Take 1 Univers 5 mg tablet 0-19 tablet by ity of 00:00: mouth in [place] 00 the Medical morning. Branch lubiproston Yes 24ug Take 24 Uni vers e 24 mcg 9-30 mcg by ity of capsule 00:00: mouth in [place] 00 the Medical morning Branch and 24 mcg in the evening. lubiproston Yes 24ug Take 24 Uni vers e 24 mcg 9-30 mcg by ity of capsule 00:00: mouth in [place] 00 the Medical morning Branch and 24 mcg in the evening. lubiproston Yes 24ug Take 24 Uni vers e 24 mcg 9-30 mcg by ity of capsule 00:00: mouth in [place] 00 the Medical morning Branch and 24 mcg in the evening. finasteride Yes [id number] 5mg Take 1 Univers 5 mg tablet 1-03 tablet by ity of 00:00: mouth [place] 00 daily. [facility] finasteride Yes [id number] 5mg Take 1 Univers 5 mg tablet 1-03 tablet by ity of 00:00: mouth [place] 00 daily. [facility] finasteride 2021- No [id number] 5mg Take 1 Univers 5 mg tablet 1-03 10-19 tablet by it y of 00:00: 00:00 mouth [place] 00 :00 daily. [facility] finasteride 2021- No [id number] 5mg Take 1 Univers 5 mg tablet 1-03 10-19 tablet by it y of 00:00: 00:00 mouth [place] 00 :00 daily. [facility] finasteride 2021- No [id number] 5mg Take 1 Univers 5 mg tablet 1-03 10-19 tablet by it y of 00:00: 00:00 mouth [place] 00 :00 daily. [facility] omega-3 2020-10 Yes 1g Take 1 g [...] SL) 41 Medical Branch finasteride 2020-10 Yes [id number] 5mg Take 1 Univers 5 mg tablet 0-04 tablet by ity of 00:00: mouth [place] 00 daily. Medical Branch tamsulosin 2020-10 Yes [id number] .4mg Take 1 Univers 0.4 mg 24 0-04 capsule by ity of hr capsule 00:00: mouth at [place] 00 bedtime. Medical Branch finasteride 2020-10 Yes [id number] 5mg Take 1 Univers 5 mg tablet 0-04 tablet by ity of 00:00: mouth [place] 00 daily. Medical Branch tamsulosin 2020-10 Yes [id number] .4mg Take 1 Univers 0.4 mg 24 0-04 capsule by ity of hr capsule 00:00: mouth at [place] 00 bedtime. Medical Branch finasteride 2020-10 Yes [id number] 5mg Take 1 Univers 5 mg tablet 0-04 tablet by ity of 00:00: mouth [place] 00 daily. Medical Branch tamsulosin 2020-10 Yes [id number] .4mg Take 1 Univers 0.4 mg 24 0-04 capsule by ity of hr capsule 00:00: mouth at [place] 00 bedtime. Medical Branch finasteride 2020-10 Yes [id number] 5mg Take 1 Univers 5 mg tablet 0-04 tablet by ity of 00:00: mouth [place] 00 daily. Medical Branch tamsulosin 2020-10 Yes [id number] .4mg Take 1 Univers 0.4 mg 24 0-04 capsule by ity of hr capsule 00:00: mouth at [place] 00 bedtime. Medical Branch finasteride 2020-10- No [id number] 5mg Take 1 Univers 5 mg tablet 0-04 10-19 tablet by it y of 00:00: 00:00 mouth [place] 00 :00 daily. Medical Branch tamsulosin 2020-10- No [id number] .4mg Take 1 Univers 0.4 mg 24 0-04 10-19 capsule by ity of hr capsule 00:00: 00:00 mouth at [place] 00 :00 bedtime. Medical Branch finasteride 2020-10- No [id number] 5mg Take 1 Univers 5 mg tablet 0-04 10-19 tablet by it y of 00:00: 00:00 mouth [place] 00 :00 daily. Medical Branch tamsulosin 2020-10- No [id number] .4mg Take 1 Univers 0.4 mg 24 0-04 10-19 capsule by ity of hr capsule 00:00: 00:00 mouth at [place] 00 :00 bedtime. Medical Branch finasteride 2020-10- No [id number] 5mg Take 1 Univers 5 mg tablet 0-04 10-19 tablet by it y of 00:00: 00:00 mouth [place] 00 :00 daily. Medical Branch tamsulosin 2020-10- No [id number] .4mg Take 1 Univers 0.4 mg 24 0-04 10-19 capsule by ity of hr capsule 00:00: 00:00 mouth at [place] 00 :00 bedtime. Medical Branch finasteride Yes [id number] 5mg Take 1 Univers 5 mg tablet 9-24 tablet by ity of 00:00: mouth [place] 00 daily. Medical Branch tamsulosin Yes [id number] .4mg Take 1 Univers 0.4 mg 24 9-24 capsule by ity of hr capsule 00:00: mouth at [place] 00 bedtime. Medical Branch finasteride Yes [id number] 5mg Take 1 Univers 5 mg tablet 9-24 tablet by ity of 00:00: mouth [place] 00 daily. Medical Branch tamsulosin Yes [id number] .4mg Take 1 Univers 0.4 mg 24 9-24 capsule by ity of hr capsule 00:00: mouth at [place] 00 bedtime. Medical Branch tamsulosin Yes [id number] .4mg Take 1 Univers 0.4 mg 24 9-24 capsule by ity of hr capsule 00:00: mouth at [place] 00 bedtime. Medical Branch tamsulosin Yes [id number] .4mg Take 1 Univers 0.4 mg 24 9-24 capsule by ity of hr capsule 00:00: mouth at [place] 00 bedtime. Medical Branch tamsulosin 2021- No [id number] .4mg Take 1 Univers 0.4 mg 24 9-24 10-19 capsule by ity of hr capsule 00:00: 00:00 mouth at [place] 00 :00 bedtime. Medical Branch tamsulosin 2021- No [id number] .4mg Take 1 Univers 0.4 mg 24 9-24 10-19 capsule by ity of hr capsule 00:00: 00:00 mouth at [place] 00 :00 bedtime. Medical Branch tamsulosin 2021- No [id number] .4mg Take 1 Univers 0.4 mg 24 9-24 10-19 capsule by ity of hr capsule 00:00: 00:00 mouth at [place] 00 :00 bedtime. Medical Branch finasteride 2021- No [id number] 5mg Take 1 Univers 5 mg tablet 07-05- tablet by it y of 00:00: 00:00 mouth [place] 00 :00 daily. Medical Branch sacubitriL- Yes 1{tbl} Q.5D Take 1 [facility] valsartan 4-[address] (Entresto) 16:19: mouth 2 [facility] 24-26 mg 51 (two) l tablet per times a tablet day. He's not sure of the dosage allopurinoL 2021-0 Yes 100mg Q.5D Take 100 M ethodi (ZYLOPRIM) 4-[address] 100 MG 16:19: mouth 2 Hospita tablet 51 (two) l times a day. polyethylen 2021-0 Yes 17g QD Take 17 g M ethodi e glycol 4-[address] (GLYCOLAX) 16:19: daily. Hospi ta 17 51 l gram/dose powder desonide 2021-0 Yes Q.5D Apply Methodi (DESOWEN) 4-[address] 0.05 % 16:19: 2 (two) Hospita cream 51 times a l day. acetaminoph 2021-0 Yes 500mg Q6H Take 500 M ethodi en 4-[address] (TYLENOL) 16:19: mouth Hospita 500 MG 51 every 6 l tablet (six) hours as needed for mild pain. sacubitriL- 2021-0 Yes 1{tbl} Q.5D Take 1 [facility] valsartan 4-[address] (Entresto) 16:19: mouth 2 [facility] 24-26 mg 51 (two) l tablet per times a tablet day. He's not sure of the dosage allopurinoL 2021-0 Yes 100mg Q.5D Take 100 M ethodi (ZYLOPRIM) 4-[address] 100 MG 16:19: mouth 2 Hospita tablet 51 (two) l times a day. polyethylen 2021-0 Yes 17g QD Take 17 g M ethodi e glycol 4-[address] (GLYCOLAX) 16:19: daily. Hospi ta 17 51 l gram/dose powder desonide 2021-0 Yes Q.5D Apply Methodi (DESOWEN) 4-[address] 0.05 % 16:19: 2 (two) Hospita cream 51 times a l day. acetaminoph 2021-0 Yes 500mg Q6H Take 500 M ethodi en 4-[address] (TYLENOL) 16:19: mouth Hospita 500 MG 51 every 6 l tablet (six) hours as needed for mild pain. metoprolol 2021-0 Yes 50mg QD Take 50 mg M ethodi succinate 4-[address] XL 16:19: daily. Hospita (TOPROL-XL) 15 l 25 mg 24 hr tablet ipratropium 0 Yes 2{puff} Q6H Inhale 2 Methodi -albuteroL 4-[address] (COMBIVENT 16:19: every 6 Hosp [facility] RESPIMAT) 15 (six) l 20-100 hours as mcg/actuati needed for on mist wheezing. inhaler fluticasone 0 Yes QD Inhale 1 [facility] -umeclidin- 4-[address] vilanter 16:19: s once Hospita (Trelegy 15 daily. l Ellipta) 100-62.5-25 mcg blister with device powder for inhalation tamsulosin Yes .4mg Q.5D Take 0.4 Met hodi (FLOMAX) 4-[address] 0.4 mg 16:19: mouth 2 Hospita capsule 15 (two) l times a day. furosemide Yes 20mg Take 20 mg M ethodi (LASIX) 20 4-[address] mg tablet 16:19: Once a day Ho spita 15 Every l other day atorvastati 0 Yes 80mg QD Take 80 mg Methodi n (LIPITOR) 4-[address] 40 mg 16:19: daily. Hospita tablet 15 l omeprazole 0 Yes 20mg QD Take 20 mg M ethodi (PriLOSEC) 4-[address] 20 MG 16:19: nightly. Hospita capsule 15 l finasteride 0 Yes 5mg QD Take 5 mg M ethodi (PROSCAR) 5 4-[address] mg tablet 16:19: daily. Hospit a 15 l metoprolol 0 Yes 50mg QD Take 50 mg M ethodi succinate 4-[address] XL 16:19: daily. Hospita (TOPROL-XL) 15 l 25 mg 24 hr tablet ipratropium 0 Yes 2{puff} Q6H Inhale 2 Methodi -albuteroL 4-[address] (COMBIVENT 16:19: every 6 Hosp mes[facility] RESPIMAT) 15 (six) l 20-100 hours as mcg/actuati needed for on mist wheezing. inhaler fluticasone Yes QD Inhale 1 [facility] -umeclidin- 4-[address] vilanter 16:19: s once Hospita (Trelegy 15 daily. l Ellipta) 100-62.5-25 mcg blister with device powder for inhalation tamsulosin Yes .4mg Q.5D Take 0.4 Met hodi (FLOMAX) 4-[address] 0.4 mg 16:19: mouth 2 Hospita capsule 15 (two) l times a day. furosemide Yes 20mg Take 20 mg M ethodi (LASIX) 20 4-[address] mg tablet 16:19: Once a day Ho spita 15 Every l other day atorvastati Yes 80mg QD Take 80 mg Methodi n (LIPITOR) 4-[address] 40 mg 16:19: daily. Hospita tablet 15 l omeprazole Yes 20mg QD Take 20 mg M ethodi (PriLOSEC) 4-[address] 20 MG 16:19: nightly. Hospita capsule 15 l finasteride Yes 5mg QD Take 5 mg M ethodi (PROSCAR) 5 4-[address] mg tablet 16:19: daily. Hospit a 15 l diphenhydrA Yes 25mg QD Take 25 mg Methodi MINE 4-[address] (BENADRYL) 16:19: nightly as H ospita 25 mg 14 needed for l tablet sleep. diphenhydrA Yes 25mg QD Take 25 mg [...] TABLET BY ity of tablet 00:00: MOUTH TWICE Medical DAILY WITH Branch MEALS DICLOFENAC [...] TWICE Medical DAILY WITH Branch MEALS DICLOFENAC 2017- Yes TAKE 1 Unive rs 75 mg [...] Unive rs INHALE 2-21 ity of 15:42: [address] ALBUTEROL 2015-10 Yes Inhale. Unive rs INHALE 2-21 ity of 15:42: [address] ALBUTEROL 2015-10 Yes Inhale. Unive rs INHALE 2-21 ity of 15:42: [address] ALBUTEROL 2015-10 Yes Inhale. Unive rs INHALE 2-21 ity of 15:42: [address] ALBUTEROL 2015-10 Yes Inhale. Unive rs INHALE 2-21 ity of 15:42: [address] ALBUTEROL 2015-10 Yes Inhale. Unive rs INHALE 2-21 ity of 15:42: [address] ALBUTEROL 2015-10 Yes Inhale. Unive rs INHALE 2-21 ity of 15:42: [address] BREO 2015-10 Yes USE 1 Univers ELLIPTA 2-14 INHALATION ity of 200-25 00:00: PO QD [place] mcg/dose 00 [facility] 2015-10 Yes USE 1 Univers ELLIPTA 2-14 INHALATION ity of 200-25 00:00: PO QD [place] mcg/dose 00 [facility] 2015-10 Yes USE 1 Univers ELLIPTA 2-14 INHALATION ity of 200-25 00:00: PO QD [place] mcg/dose [facility] 2015-10 Yes USE 1 Univers ELLIPTA 2-14 INHALATION ity of 200-25 00:00: PO QD [place] mcg/dose 00 [facility] 2015-10 Yes USE 1 Univers ELLIPTA 2-14 INHALATION ity of 200-25 00:00: PO QD [place] mcg/dose 00 [facility] BREO 2015-10 Yes USE 1 Univers ELLIPTA 2-14 INHALATION ity of 200-25 00:00: PO QD [place] mcg/dose 00 Medical [facility] BREO 2015-10 Yes USE 1 Univers ELLIPTA 2-14 INHALATION ity of 200-25 00:00: PO QD [place] mcg/dose 00 [facility] meloxicam Yes 7.5mg Take 7.5 Uni vers (MOBIC) 7.5 7-14 mg by ity of mg tablet 08:55: mouth [place] 06 daily. [facility] meloxicam Yes 7.5mg Take 7.5 Uni vers (MOBIC) 7.5 7-14 mg by ity of mg tablet 08:55: mouth [place] 06 daily. [facility] meloxicam Yes 7.5mg Take 7.5 Uni vers (MOBIC) 7.5 7-14 mg by ity of mg tablet 08:55: mouth [place] 06 daily. [facility] meloxicam Yes 7.5mg Take 7.5 Uni vers (MOBIC) 7.5 7-14 mg by ity of mg tablet 08:55: mouth [place] 06 daily. [facility] meloxicam Yes 7.5mg Take 7.5 Uni vers (MOBIC) 7.5 7-14 mg by ity of mg tablet 08:55: mouth [place] 06 daily. [facility] meloxicam Yes 7.5mg Take 7.5 Uni vers (MOBIC) 7.5 7-14 mg by ity of mg tablet 08:55: mouth [place] 06 daily. [facility] meloxicam Yes 7.5mg Take 7.5 Uni vers (MOBIC) 7.5 7-14 mg by ity of mg tablet 08:55: mouth [place] 06 daily. [facility] HYDROcodone Yes 1{tbl} Take 1 Tab Univers -acetaminop 7-14 by mouth 2 it y of hen (NORCO 08:52: (two) [place] 5) 5-325 mg 21 times Medical tablet daily. [place] HYDROcodone Yes 1{tbl} Take 1 Tab Univers -acetaminop 7-14 by mouth 2 it y of hen (NORCO 08:52: (two) [place] 5) 5-325 mg 21 times Medical tablet daily. [place] HYDROcodone 2015- Yes 1{tbl} Take 1 Tab Univers -acetaminop 7-14 by mouth 2 it y of hen (NORCO 08:52: (two) [place] 5) 5-325 mg 21 times Medical tablet daily. Branch HYDROcodone Yes 1{tbl} Take 1 Tab Univers -acetaminop 7-14 by mouth 2 it y of hen ([place] 08:52: (two) [place] 5) 5-325 mg 21 times Medical tablet daily. Branch HYDROcodone Yes 1{tbl} Take 1 Tab Univers -acetaminop 7-14 by mouth 2 it y of hen ([place] 08:52: (two) [place] 5) 5-325 mg 21 times Medical tablet daily. Branch HYDROcodone Yes 1{tbl} Take 1 Tab Univers -acetaminop 7-14 by mouth 2 it y of hen ([place] 08:52: (two) [place] 5) 5-325 mg 21 times Medical tablet daily. Branch HYDROcodone Yes 1{tbl} Take 1 Tab Univers -acetaminop 7-14 by mouth 2 it y of hen ([place] 08:52: (two) [place] 5) 5-325 mg 21 [...] 00 Medical 24 hr Branch tablet metoprolol 0 Yes TK 1 T PO [place] succinate 5-28 QD ity of XL (TOPROL 00:00: [place] XL) 50 mg 00 Medical 24 hr Branch tablet metoprolol Yes TK 1 T PO [place] succinate 5-28 QD ity of XL (TOPROL 00:00: [place] XL) 50 mg 00 Medical 24 hr Branch tablet metoprolol Yes TK 1 T PO [place] succinate 5-28 QD ity of XL (TOPROL 00:00: [place] XL) 50 mg 00 Medical 24 hr Branch tablet furosemide Yes 40mg Take 40 mg U nivers (LASIX) 20 9-04 by mouth ity o f mg tablet 00:00: daily. [place] [facility] furosemide Yes 40mg Take 40 mg U nivers (LASIX) 20 9-04 by mouth ity o f mg tablet 00:00: daily. [place] [facility] furosemide Yes 40mg Take 40 mg U nivers (LASIX) 20 9-04 by mouth ity o f mg tablet 00:00: daily. [place] [facility] furosemide Yes 40mg Take 40 mg U nivers (LASIX) 20 9-04 by mouth ity o f mg tablet 00:00: daily. [place] [facility] furosemide Yes 40mg Take 40 mg U nivers (LASIX) 20 9-04 by mouth ity o f mg tablet 00:00: daily. [place] [facility] furosemide Yes 40mg Take 40 mg U nivers (LASIX) 20 9-04 by mouth ity o f mg tablet 00:00: daily. [place] [facility] furosemide Yes 40mg Take 40 mg U nivers (LASIX) 20 9-04 by mouth ity o f mg tablet 00:00: daily. [address] allopurinol Yes 100mg Take 100 U nivers (ZYLOPRIM) 9-03 mg by ity of 100 mg 00:00: mouth 2 [place] tablet 00 (two) Medical times Branch daily. colchicine Yes .6mg Take 0.6 Uni vers (COLCRYS) 9-03 mg by ity of 0.6 mg 00:00: mouth [place] tablet 00 daily. [facility] allopurinol Yes 100mg Take 100 U nivers [...] by mouth ity of (GLYCOLAX) 00:00: daily. [place] [facility]/dose Branch powder polyethylen 2015-0 Yes 17g Take 17 g U nivers e glycol 8-27 by mouth ity of (GLYCOLAX) 00:00: daily. Medical gram/dose Branch powder polyethylen 2014-0 Yes 17g Take 17 g U nivers e glycol 8-27 by mouth ity of (GLYCOLAX) 00:00: daily. Medical gram/dose Branch powder polyethylen 2014-0 Yes 17g Take 17 g U nivers e glycol 8-27 by mouth ity of (GLYCOLAX) 00:00: daily. Medical gram/dose Branch powder polyethylen 2014-0 Yes 17g Take 17 g U nivers e glycol 8-27 by mouth ity of (GLYCOLAX) 00:00: daily. Medical gram/dose Branch powder polyethylen 2014-0 Yes 17g Take 17 g U nivers e glycol 8-27 by mouth ity of (GLYCOLAX) 00:00: daily. Medical gram/dose Branch powder polyethylen 2014-0 Yes 17g Take 17 g U nivers e glycol 8-27 by mouth ity of (GLYCOLAX) 00:00: daily. Medical gram/dose Branch powder lovastatin 0 Yes 20mg Take 20 mg U nivers (MEVACOR) 8-15 by mouth ity of 20 mg 00:00: at [place] tablet 00 bedtime. Medical Branch lovastatin 0 Yes 20mg Take 20 mg U nivers (MEVACOR) 8-15 by mouth ity of 20 mg 00:00: at [place] tablet 00 bedtime. Medical Branch lovastatin 0 Yes 20mg Take 20 mg U nivers (MEVACOR) 8-15 by mouth ity of 20 mg 00:00: at [place] tablet 00 bedtime. Medical Branch lovastatin 0 Yes 20mg Take 20 mg U nivers (MEVACOR) 8-15 by mouth ity of 20 mg 00:00: at [place] tablet 00 bedtime. Medical Branch lovastatin 2014-0 Yes 20mg Take 20 mg U nivers (MEVACOR) 8-15 by mouth ity of 20 mg 00:00: at [place] tablet 00 bedtime. Medical Branch lovastatin 2014-0 Yes 20mg Take 20 mg U nivers (MEVACOR) 8-15 by mouth ity of 20 mg 00:00: at [place] tablet 00 bedtime. Medical Branch lovastatin Yes 20mg Take 20 mg U nivers (MEVACOR) 8-15 by mouth ity of 20 mg 00:00: at [facility] 00 bedtime. Medical Branch terazosin Yes 10mg Take 10 mg [place] (HYTRIN) 10 8-01 by mouth ity of mg capsule 00:00: at [place] 00 bedtime. Medical Branch terazosin Yes 10mg Take 10 mg [place] (HYTRIN) 10 8-01 by mouth ity of mg capsule 00:00: at [place] 00 bedtime. Medical Branch terazosin Yes 10mg Take 10 mg [place] (HYTRIN) 10 8-01 by mouth ity of mg capsule 00:00: at [place] 00 bedtime. Medical Branch terazosin Yes 10mg Take 10 mg [place] (HYTRIN) 10 8-01 by mouth ity of mg capsule 00:00: at [place] 00 bedtime. Medical Branch terazosin 2021- No 10mg Take 10 mg U nivers (HYTRIN) 10 8- 10-19 by mouth ity of mg capsule 00:00: 00:00 at [place] 00 :00 bedtime. Medical Branch terazosin 2021- No 10mg Take 10 mg U nivers (HYTRIN) 10 8- 10-19 by mouth ity of mg capsule 00:00: 00:00 at [place] 00 :00 bedtime. Medical Branch terazosin 2021- No 10mg Take 10 mg U nivers (HYTRIN) 10 8- 10-19 by mouth ity of mg capsule 00:00: 00:00 at [place] 00 :00 bedtime. Medical Branch acetaminoph Yes [...] 00 (two) Medical times Branch daily. ranitidine Yes 150mg Take 150 [place] (ZANTAC) 6-29 mg by ity of 150 mg 00:00: mouth 2 [place] tablet 00 (two) Medical times Branch daily. ranitidine Yes 150mg Take 150 [place] (ZANTAC) 6-29 mg by ity of 150 mg 00:00: mouth 2 [place] tablet 00 (two) Medical times Branch daily. ranitidine Yes 150mg Take 150 [place] (ZANTAC) 6-29 mg by ity of 150 mg 00:00: mouth 2 [place] tablet 00 (two) Medical times Branch daily. ranitidine Yes 150mg Take 150 [place] (ZANTAC) 6-29 mg by ity of 150 mg 00:00: mouth 2 [place] tablet 00 (two) Medical times Branch daily. ranitidine Yes 150mg Take 150 [place] (ZANTAC) 6-29 mg by ity of 150 mg 00:00: mouth 2 [place] tablet 00 (two) Medical times Branch daily. ranitidine Yes 150mg Take 150 [place] (ZANTAC) 6-29 mg by ity of 150 mg 00:00: mouth 2 [place] tablet 00 (two) Medical times Branch daily. Immunizations Ordered Filled Immunization Date Status Comments [facility] e Immunization Name Name SARS-COV-2 COVID-19 2021-07-15 Completed Unive rsity of PFIZER VACCINE 00:00:00 [facility] Branch SARS-COV-2 COVID-19 2021-07-15 Completed Unive rsity of PFIZER VACCINE 00:00:00 [facility] Branch SARS-COV-2 COVID-19 2021-07-15 Completed Unive rsity of PFIZER VACCINE 00:00:00 [facility] Branch SARS-COV-2 COVID-19 2021-07-15 Completed Unive rsity of PFIZER VACCINE 00:00:00 [facility] Branch SARS-COV-2 COVID-19 2021-07-15 Completed Unive rsity of PFIZER VACCINE 00:00:00 [facility] Branch SARS-COV-2 COVID-19 2021-07-15 Completed Unive rsity of PFIZER VACCINE 00:00:00 [facility] Branch SARS-COV-2 COVID-19 2021-07-15 Completed Unive rsity of PFIZER VACCINE 00:00:00 [facility] Branch SARS-COV-2 COVID-19 2021-01-17 Completed Unive rsity of PFIZER VACCINE 00:00:00 [facility] Branch SARS-COV-2 COVID-19 2021-01-17 Completed Unive rsity of PFIZER VACCINE 00:00:00 [facility] Branch SARS-COV-2 COVID-19 2021-01-17 Completed Unive rsity of PFIZER VACCINE 00:00:00 [facility] SARS-COV-2 COVID-19 2021-01-17 Completed Unive rsity of PFIZER VACCINE 00:00:00 [facility] SARS-COV-2 COVID-19 2021-01-17 Completed Unive rsity of PFIZER VACCINE 00:00:00 [facility] SARS-COV-2 COVID-19 2021-01-17 Completed Unive rsity of PFIZER VACCINE 00:00:00 [facility] SARS-COV-2 COVID-19 2021-01-17 Completed Unive rsity of PFIZER VACCINE 00:00:00 [facility] SARS-COV-2 COVID-19 2020-12-26 Completed Unive rsity of PFIZER VACCINE 00:00:00 [facility] SARS-COV-2 COVID-19 2020-12-26 Completed Unive rsity of PFIZER VACCINE 00:00:00 [facility] SARS-COV-2 COVID-19 2020-12-26 Completed Unive rsity of PFIZER VACCINE 00:00:00 [facility] SARS-COV-2 COVID-19 2020-12-26 Completed Unive rsity of PFIZER VACCINE 00:00:00 [facility] SARS-COV-2 COVID-19 2020-12-26 Completed Unive rsity of PFIZER VACCINE 00:00:00 [facility] SARS-COV-2 COVID-19 2020-12-26 Completed Unive rsity of PFIZER VACCINE 00:00:00 [facility] SARS-COV-2 COVID-19 2020-12-26 Completed Unive rsity of PFIZER VACCINE 00:00:00 [facility] Vital Signs Vital Name Observation Time Observation Value Comments Source Systolic blood 2022-07-30 15:45:00 120 mm[Hg] Univer sity of pressure [facility] Diastolic blood 2022-07-30 15:45:00 69 mm[Hg] Unive rsity of pressure [facility] Heart rate 2022-07-30 15:45:00 63 /min Universi ty [facility] Respiratory rate 2022-07-30 15:45:00 16 /min [facility] Body height 2022-07-30 15:45:00 175.3 cm [facility] Body weight 2022-07-30 15:45:00 85.911 kg [facility] BMI 2022-07-30 15:45:00 27.97 kg/m2 [facility] Oxygen saturation in 2022-07-30 15:45:00 100 /min room air University of Arterial blood by [facility] Pulse oximetry Branch Systolic blood 2021-07-15 20:01:00 113 mm[Hg] Univer sity of pressure [facility] Diastolic blood 2021-07-15 20:01:00 66 mm[Hg] Unive rsity of pressure [facility] Heart rate 2021-07-15 20:01:00 86 /min Universi [facility] Body temperature 2021-07-15 20:01:00 35.5 Julia Univ ersity of [facility] Respiratory rate 2021-07-15 20:01:00 18 /min [facility] Body height 2021-07-15 20:01:00 175.3 cm [facility] Body weight 2021-07-15 20:01:00 93.35 kg [facility] BMI 2021-07-15 20:01:00 30.39 kg/m2 [facility] Oxygen saturation in 2021-07-15 20:01:00 97 /min University Arterial blood by [facility] Pulse oximetry Branch Procedures Procedure Date / Time Performed Performing Clinician Sourc e POCT URINALYSIS AUTO 2022-07-30 15:44:00 Eusebia Alvarado [facility] CONSENT/REFUSAL FOR 2022-07-30 15:24:13 Doctor Unassigned, [facility] Name [facility] TREATMENT POCT URINALYSIS AUTO 2021-07-15 20:05:00 Ena Wells [facility] Plan of Care Planned Activity Planned Date Details Comments Source Future Scheduled 2022-08-14 HEPATITIS B VACCINES Met [facility] Test 08:49:25 (1 of 3 - 3-dose series) [code = HEPATITIS B VACCINES (1 of 3 - 3-dose series)] Future Scheduled 2022-08-14 SHINGLES VACCINES (1 Met [facility] Test 08:49:25 of 2) [code = SHINGLES VACCINES (1 of 2)] Future Scheduled 2022-08-14 65+ [facility]CCAL [facility] 08:49:25 VACCINE (1 - PCV) [code = 65+ PNEUMOCOCCAL VACCINE (1 - PCV)] Future Scheduled 2022-08-14 COVID-19 VACCINE (4 - [facility] Test 08:49:25 Booster for Pfizer series) [code = COVID-19 VACCINE (4 - Booster for Pfizer series)] Future Scheduled 2022-08-14 INFLUENZA VACCINE Method [facility] Test 08:49:25 [code = INFLUENZA VACCINE] Future Scheduled 2022-08-05 HEPATITIS B VACCINES Met [facility] Test 12:29:06 (1 of 3 - 3-dose series) [code = HEPATITIS B VACCINES (1 of 3 - 3-dose series)] Future Scheduled 2022-08-05 SHINGLES VACCINES (1 Met [facility] Test 12:29:06 of 2) [code = SHINGLES VACCINES (1 of 2)] Future Scheduled 2022-08-05 65+ P[facility]UMOCOCCAL [facility] Test 12:29:06 VACCINE (1 - PCV) [code = 65+ PNEUMOCOCCAL VACCINE (1 - PCV)] Future Scheduled 2022-08-05 COVID-19 VACCINE (4 - Me [facility] Test 12:29:06 Booster for Pfizer series) [code = COVID-19 VACCINE (4 - Booster for Pfizer series)] Future Scheduled 2022-08-05 INFLUENZA VACCINE Method [facility] Test 12:29:06 [code = INFLUENZA VACCINE] Encounters Start End Encounter Admission Attending Care Care Encounter Source Date/Time Date/Time Type Type Clinicians Facility Department ID 2019-11-22 Inpatient [facility], [facility] OUTD [id number] [facility] 09:30:[address] [place] [address] 2022-07-30 2022-07-[address] [facility] [id number] Univers 10:30:00 11:13:28 EUSEBIA peres o f [facility] 2022-07-30 2022-07-30 Office Christiano [facility] 1.2.840.114 [id number] Univers 10:30:00 11:13:28 Visit Eusebia CAM 350.1.13.10 [place] [phone] Pr dical [address] 2022-07-30 2022-07-30 Orders Doctor SREE 1.2.840.114 [id number] Univers 00:00:00 00:00:00 Only Unassigned, ELSIE 350.1.13.10 ity of [place] [facility] 4.2.7.2.686 Guido as [phone] [address] 2021-10-14 2021-10-14 Refill Priscilla LAIVET 1.2.840.114 [id number] Univers 00:00:00 00:00:00 Ena CAM 350.1.13.10 [place] [phone] Pr dical NAL 204 [facility] 2021-09-18 2021-09-18 Telephone [place], 1.2.840.1 [id number] Methodi 08:10:00 08:15:56 Consult Charudatta 33744.1.1 962 s t Sascha 3.430.2.7 Hospi ta .3.353327 l .8 2021-09-18 2021-09-18 [facility] 1.2.840.1 [id number] Methodi 08:10:00 08:15:56 Consult Charudatta 25961.1.1 962 s t Sascha 3.430.2.7 Hospi ta .3.293813 l .8 2021-09-18 2021-09-18 Orders Erin, 1.2.840.1 [id number] Methodi 00:00:00 00:00:00 Only Abigail [address]952.1.[address] 3.430.2.7 Hospit a .3.414370 l .8 2021-09-18 2021-09-18 Orders Erin, 1.2.840.1 [id number] Methodi 00:00:00 00:00:00 Only Abigail 36834.1.[address] 3.430.2.7 Hospit a .3.735909 l .8 2021-09-09 2021-09-09 Telephone [place] 1.2.840.1 [id number] Methodi 00:00:00 00:00:00 , Juliette [address]015.1.[address] 3.430.2.7 Hospit a .3.231433 l .8 2021-09-09 2021-09-09 Telephone [place] 1.2.840.1 [id number] Methodi 00:00:00 00:00:00 , Juliette 07269.1.[address] 3.430.2.7 Hospit a .3.458841 l .8 2021-08-12 2021-08-12 Telephone [place] 1.2.840.1 [id number] Methodi 00:00:00 00:00:00 , Juliette 97573.1.[address] 3.430.2.7 Hospit a .3.597752 l .8 2021-08-06 2021-08-06 Travel 1.2.840.1 1.2.720.383 [id number] Methodi 00:00:00 00:00:[address] 3.430.2.7 0.2.7.3.698 Ho spita .3.250686 084.8 l .8 2021-07-16 2021-07-16 [facility] 1.2.059.882 [id number] Univers 00:00:00 00:00:00 Ena Cam 350.1.13.10 ity [facility] [place] [phone] Pr dical nal 204 [facility] 2021-07-15 2021-07-15 [facility] [id number] Univers 15:00:00 15:39:32 ENA peres [facility] 2021-07-15 2021-07-15 Office [facility] 1.2.840.114 [id number] Univers 14:42:07 15:39:32 Visit Ena Cam 350.1.13.10 ity [facility] [place] [phone] Pr dical nal 204 [facility] 2021-07-15 2021-07-[address] [facility] [id number] Univers 14:40:00 14:40:00 RY peres [facility] 2021-07-15 2021-07-15 Imm/Inj Nurse, Adc Pob Immunization [facility] 1.2.840.114 [id number] Univers 14:34:57 14:35:05 Visit Ry [place] 350.1.13 .10 ity [facility] [place] [phone] Pr dical nal 421 [facility] 2021-07-10 2021-07-10 [facility] [id number] Univers 14:30:00 14:30:00 ENA ity [facility] 2021-07-05 2021-07-05 Telephone [facility] 1.2.645.569 [id number] Univers 00:00:00 00:00:00 Ena Cam 350.1.13.10 it[place] of [place] [phone] Pr dical nal [address] [place] [address] 2021-07-05 2021-07-05 Orders Doctor SREE 1.2.840.114 [id number] Univers 00:00:00 00:00:00 Only Unassigned, ELSIE 350.1.13.10 [facility] 4.2.7.2.686 Guido as [phone] [address] 2021-07-04 2021-07-04 [facility] 1.2.840.114 [id number] Univers 00:00:00 00:00:00 Flaco Cam 350.1.13.10 i ty [place] [phone] Pr dical nal [address] [place] [address] 2021-05-27 2021-05-[address] [facility] [id number] [facility] 11:30:00 11:30:00 FLACO [facility] 2021-02-05 2021-02-05 Outpatient [facility] [id number] [address] [place] [address] 00:00:00 00:00:00 VIVIANA 959 Met [facility] 2021-01-28 2021-01-28 Outpatient [facility] [id number] [address] [place] [address] 00:00:00 00:00:00 VIVIANA 083 Met [facility] 2021-01-17 2021-01-[address] [facility] [id number] Univers 12:00:00 11:21:21 TOR peres [facility] 2020-12-26 2020-12-[address] [facility] [id number] Univers 12:00:00 11:13:50 [facility] 2020-12-19 2020-12-19 Outpatient R [facility] [id number] Univers 14:30:00 14:30:00 ENA peres [facility] 2020-09-29 2020-09-29 Telephone [facility] 1.2.592.157 [id number] Univers 00:00:00 00:00:00 Ena [place] 350.1.13.10 it[place] [phone] Pr dical [address] 2020-09-24 2020-09-24 [facility] 1.2.840.114 [id number] Univers 00:00:00 00:00:00 Management Ena [place] 350.1.13.10 it[place] [phone] Pr dical nal [address] [place] [address] 2020-09-22 2020-09-22 [facility] 1.2.563.865 [id number] Univers 00:00:00 00:00:00 Ena [place] 350.1.13.10 it[place] of [place] [phone] Pr dical nal [address] [place] [address] 2020-09-19 2020-09-19 [facility] 1.2.840.114 [id number] Univers 15:06:02 15:58:17 Visit Ena [place] 350.1.13.10 [place] [phone] Pr dical [address] 2020-09-19 2020-09-19 Outpatient R [facility] [id number] Univers 15:15:00 15:15:00 ENA ittato [facility] 2020-09-12 2020-09-12 [facility] [id number] Univers 13:30:00 13:30:00 ENA peres [facility] 2020-08-29 2020-08-29 [facility] [id number] Univers 13:30:00 13:30:00 ENALIMA peres [facility] 2020-07-25 2020-07-27 Inpatient [facility] [id number] Igo 00:00:00 00:00:00 VINAYAK [address] 2020-07-05 2020-07-05 Office [facility] 1.2.840.114 [id number] Univers 14:53:28 16:00:47 Visit Flaco Cam 350.1.13.10 i ty [place] [phone] Me dical [address] 2020-07-05 2020-07-05 Office [facility] 1.2.840.114 [id number] 14:53:28 16:00:47 Visit Flaco Cam 350.1.13.10 [place] 4.2.7.2.686 Professio [phone] [address] 2020-07-05 2020-07-05 [facility] [id number] Univers 15:00:00 15:00:00 [facility] 2020-07-05 2020-07-05 Orders Doctor SREE 1.2.840.114 [id number] Univers 00:00:00 00:00:00 Only Unassigned, ELSIE 350.1.13.10 ity of [place] [facility] 4.2.7.2.686 Guido as [phone] [address] 2020-06-14 2020-06-14 Out[facility] [id number] Univers 11:00:00 11:00:00 [facility] 2017-07-14 2017-07-14 Outpatient Batsheva [facility] [id number] [facility] 10:47:00 10:47:00 JORGE LUIS [facility] Results Test Description Test Time [...] U APPEAR (test code = 3267) [facility] URINALYSIS, [id number] 15:45:00 Test Item Value Reference Range Interpretation [...] U APPEAR (test code = Color 3267) [facility] [id number] 15:45:00 Test Item Value Reference Range Interpretation [...] U APPEAR (test code = Color 3267) [facility] [id number] 20:05:00 Test Item Value Reference Range Interpretation [...] U APPEAR (test code = clear 3267) [facility] ([facility] RNA [Presence] in Respiratory specimen by LESLY with probe [id number] 01:26:43 Test Item Value Reference Range Interpretation Comments SARS-CoV-2 (COVID-19) RNA Not detected Not-Detected [Presence] in Respiratory specimen by LESLY with probe detection (test code = 79959-8) NAIMA PATELIST WESTPROTHROMBIN [id number] 13:38:00 Test Item Value Reference Range Interpretation [...] (to prevent recurrent infar ct). BASIC METABOLIC [id number] 13:33:00 Test Item Value Reference Range Interpretation [...] 8.0-10.5 N CA) - XR CHEST 1 [id number] 13:30:00 FAX: Maya Melendeznellynelson [phone] [place]: St: REG Name: CHRISTIANOMARIA KRISHNAN [facility] : 1940 Age/S: 79/M [address] [place] [address] Blvd Unit #: [id number] Loc: [place] [address] Phys: Tania Dozier MD Acct: [id number] Dis Date: Status: REG [facility] PHONE #: [phone] Exam Date: 11/24/2019 1327 FAX #: [phone] Reason: PRE PROCEDURE EXAMS: CPT CODE: [id number] XR CHEST 1 V 30578 Exam: Chest radiograph frontal view Indication: 79-year-old male, preprocedure. Comparison: None. Technique: Chest radiograph frontal view. Findings: The cardiomediastinal silhouette is within normal limits. There are multiple median sternotomy wires. There is a left pectoral implantable cardiac device. There is no focal airspace consolidation. No pleural effusion. No pneumothorax. No acute osseous abnormality. Impression: No acute cardiopulmonary disease. SL: [id number] at 1330 Reported and signed by: Jared West M.D. CC: Tania Dozier MD Technologist: RT Marybeth(R) Trnscrd Date/Time/By: 11/24/2019 (6252) : By: [email or web address] Orig Print D/T: S: 11/24/2019 (1734) PAGE 1 Signed ReportBASIC METABOLIC [id number] 13:24:00 Test Item Value Reference Range Interpretation [...] CA) 9.3 mg/dL 8.0-10.5 N CBC W/AUTO [id number] 13:13:00 Test Item Value Reference Range Interpretation [...]
[2022-09-06 01:58] LABS: Absolute Lymphocytes (CBC) 1.3 K/uL (0.7-4.9); Hematocrit 34.7 % (39.6-49.0); Lymphocytes % 18.3 % (15.3-44.8); MCV 91.4 fL (80-100); MPV 7.5 fL (7.6-11.3)
[2022-09-06 02:04] LABS: Protime INR 1.04
[2022-09-06 02:18] LABS: Potassium 4.2 mmol/L (3.5-5.1); Troponin High Sensitivity 24.4 pg/mL (<58.9)
[2022-09-06 02:33] LABS: SARS-COV-2 RT PCR NEGATIVE (NEGATIVE)
--- NOTE | 2022-09-06 03:00 | ER ---
Nurse's Notes [facility] Name: Jair Jasso Age: 82 yrs Sex: Male : 1940 Arrival Date: 09/06/2022 Time: 00:20 Bed 6 Private MD: Diagnosis: Chest pain, unspecified Presentation: 09/06 00:34 Chief complaint: Patient states: "Heart pain, left side. Went away after taking a tw5 nitro. Tums wasn't helping.". Coronavirus screen: Vaccine status: Patient reports receiving the 2nd dose of the covid vaccine. [employer]. Ebola Screen: Patient negative for fever greater than or equal to 101.5 degrees Fahrenheit, and additional compatible Ebola Virus Disease symptoms Patient denies exposure to infectious person. Patient denies travel to an Ebola-affected area in the 21 days before illness onset. Initial Sepsis Screen: Does the patient meet any 2 criteria? No. Patient's initial sepsis screen is negative. Does the patient have a suspected source of infection? No. Patient's initial sepsis screen is negative. Risk Assessment: Do you want to hurt yourself or someone else? Patient reports no desire to harm self or others. Onset of symptoms was September 05, 2022 at 23:00. 00:34 Method Of Arrival: Carried tw5 00:34 Acuity: SILVIA 2 tw5 Triage Assessment: 00:36 General: Appears in no apparent distress. Behavior is calm, cooperative, appropriate tw5 for age. Pain: Pain currently is 0 out of 10 on a pain scale. at worst was 3 out of 10 on a pain scale. Historical: - Allergies: 00:36 PENICILLINS; tw5 - Home Meds: 01:51 Allopurinol Oral [Active]; Lasix Oral [Active]; losartan Oral [Active]; kd3 - PMHx: 00:36 AAA; CHF; COPD; Hypertensive disorder; Myocardial infarction; Cellulitis; tw5 - PSHx: 00:36 Coronary artery bypass graft; Tonsillectomy; Appendectomy; tw5 - Immunization history:: Flu vaccine is up to date. - Social history:: Smoking status: Patient/guardian denies using tobacco, the patient reports quitting approximately 20 years ago. - Family history:: not pertinent. - Hospitalizations: : No recent hospitalization is reported. Screenin:50 Abuse screen: Denies threats or abuse. Denies injuries from another. Nutritional kd3 screening: No deficits noted. Tuberculosis screening: No symptoms or risk factors identified. Fall Risk None identified. Assessment: 00:45 General: Appears in no apparent distress. comfortable, Behavior is calm, cooperative, jb4 appropriate for age. Pain: Complains of pain in anterior aspect of left upper chest Pain does not radiate. Pain currently is 0 out of 10 on a pain scale. Neuro: Level of Consciousness is awake, alert, obeys commands, Oriented to person, place, time, situation. Cardiovascular: Patient's skin is warm and dry. Respiratory: Airway is patent Respiratory effort is even, unlabored, Respiratory pattern is regular, symmetrical. Derm: Skin is intact, Skin is pink, warm \\T\\ dry. Musculoskeletal: Circulation, motion, and sensation intact. Swelling present in right foot and left foot. 01:50 Pain: Pain does not radiate. Pain began gradually. Cardiovascular: Rhythm is regular. kd3 02:30 Reassessment: Patient appears in no apparent distress at this time. Patient and/or jb4 family updated on plan of care and expected duration. Pain level reassessed. Patient is alert, oriented x 3, equal unlabored respirations, skin warm/dry/pink. 04:08 Reassessment: Patient appears in no apparent distress at this time. Patient and/or jb4 family updated on plan of care and expected duration. Pain level reassessed. Patient is alert, oriented x 3, equal unlabored respirations, skin warm/dry/pink. 05:00 Reassessment: Patient appears in no apparent distress at this time. Patient and/or jb4 family updated on plan of care and expected duration. Pain level reassessed. Patient is alert, oriented x 3, equal unlabored respirations, skin warm/dry/pink. 06:00 Reassessment: Patient appears in no apparent distress at this time. Patient and/or jb4 family updated on plan of care and expected duration. Pain level reassessed. Patient is alert, oriented x 3, equal unlabored respirations, skin warm/dry/pink. 07:06 Reassessment: No changes from previously documented assessment. to 2nd floor via ll1 wheelchair. Vital Signs: 00:34 BP 147 / 67; Pulse 67; Resp 18; Temp 98.3; Pulse Ox 98% ; Weight 83.91 kg; Height 5 ft. tw5 8 in. (172.72 cm); Pain 0/10; 02:00 BP 126 / 62; Pulse 60; Resp 14; Pulse Ox 100% on R/A; jb4 03:00 BP 112 / 48; Pulse 62; Resp 14; Pulse Ox 97% on R/A; jb4 04:06 BP 148 / 68; Pulse 61; Resp 19; Pulse Ox 99% on R/A; kd3 05:00 BP 112 / 49; Pulse 72; Resp 18; Pulse Ox 100% on R/A; jb4 06:00 BP 121 / 52; Pulse 60; Resp 15; Pulse Ox 96% on R/A; jb4 00:34 Body Mass Index 28.13 (83.91 kg, 172.72 cm) tw5 ED Course: 00:20 Patient arrived in ED. bp1 00:24 Tonie Montgomery, ARCHANA is Primary Nurse. kd3 00:26 Gaerth Riggins MD is Attending Physician. rn 00:36 Triage completed. tw5 00:36 Arm band placed on. tw5 01:02 XRAY Chest (1 view) In Process Unspecified. EDMS 01:50 Patient has correct armband on for positive identification. Client placed on continuous kd3 cardiac and pulse oximetry monitoring. NIBP monitoring applied. 01:50 No provider procedures requiring assistance completed. Inserted saline lock: 20 gauge kd3 in left forearm, using aseptic technique. Blood collected. Patient maintains SpO2 saturation greater than 95% on room air. 02:06 COVID-19/FLU A+B Sent. rv1 03:00 Yvan Gibson MD is Hospitalizing Provider. rn 04:07 Angio Aorta For Dissection In Process Unspecified. EDMS 07:07 Patient admitted, IV remains in place. ll1 Administered Medications: 06:47 Drug: Aspirin Chewable Tablet 324 mg Route: PO; jb4 07:08 Follow up: Response: No adverse reaction ll1 Medication: 01:51 VIS not applicable for this client. kd3 Outcome: 03:00 Decision to Hospitalize by Provider. rn 07:07 Admitted to Med/surg accompanied by jaime, via wheelchair, room Room 204, with chart. ll1 07:07 Admitted to Med/surg Report called to Report called by weight shifter RN 07:07 Condition: stable 07:07 Instructed on the need for admit. 07:18 Patient left the ED. ll1 Signatures: Dispatcher [employer] EDMS Gareth Riggins MD MD rn Bryson, James, RN RN jb4 Gerardo La RN RN ll1 Saritha Castañeda Tiffany tw5 Tonie Montgomery RN RN kd3 Selina Chatterjee [facility]
--- NOTE | 2022-09-06 03:01 | EDPHYS ---
Physician Documentation [facility] Name: Jair Jasso Age: 82 yrs Sex: Male : 1940 Arrival Date: 09/06/2022 Time: 00:20 Bed 6 Private MD: ED Physician Gareth Riggins HPI: 09/06 00:58 This 82 yrs old Male presents to ER via Carried with complaints of Chest Pain > 30 y/o. rn 00:58 The patient or guardian reports chest pain that is located primarily in the substernal rn area. Onset: just prior to arrival. The pain does not radiate. Associated signs and symptoms: Pertinent positives: None. Pertinent negatives: abdominal pain, cough, diaphoresis, dizziness, palpitations, shortness of breath, syncope, vomiting. The chest pain is described as burning, dull. Duration: The patient or guardian reports a single episode, that is now resolved, that lasted 5 minute(s). Modifying factors: The symptoms are alleviated by NTG, X1. the symptoms are aggravated by nothing. Severity of pain: At its worst the pain was moderate in the emergency department the pain has resolved. The patient has experienced similar episodes in the past. The patient has not recently seen a physician. Historical: - Allergies: 00:36 PENICILLINS; tw5 - Home Meds: 01:51 Allopurinol Oral [Active]; Lasix Oral [Active]; losartan Oral [Active]; kd3 - PMHx: 00:36 AAA; CHF; COPD; Hypertensive disorder; Myocardial infarction; Cellulitis; tw5 - PSHx: 00:36 Coronary artery bypass graft; Tonsillectomy; Appendectomy; tw5 - Immunization history:: Flu vaccine is up to date. - Social history:: Smoking status: Patient/guardian denies using tobacco, the patient reports quitting approximately 20 years ago. - Family history:: not pertinent. - Hospitalizations: : No recent hospitalization is reported. ROS: 00:58 Constitutional: Negative for fever, chills, and weight loss, Eyes: Negative for injury, rn pain, redness, and discharge, Neck: Negative for injury, pain, and swelling, Cardiovascular: + chest pain Respiratory: Negative for shortness of breath, cough, wheezing, and pleuritic chest pain, Abdomen/GI: Negative for abdominal pain, nausea, vomiting, diarrhea, and constipation, Back: Negative for injury and pain, MS/Extremity: Negative for injury and deformity, Skin: Negative for injury, rash, and discoloration, Neuro: Negative for headache, weakness, numbness, tingling, and seizure. Exam: 00:58 Constitutional: This is a well developed, well nourished patient who is awake, alert, rn and in no acute distress. Head/Face: Normocephalic, atraumatic. Cardiovascular: Regular rate and rhythm. No pulse deficits. Respiratory: No increased work of breathing, no retractions or nasal flaring. Abdomen/GI: Soft, non-tender Skin: Warm, dry MS/ Extremity: Pulses equal, no cyanosis. Neurovascular intact. Full, normal range of motion. Equal circumference. Neuro: Awake and alert, GCS 15 03:01 ECG was reviewed by the Attending Physician. rn Vital Signs: 00:34 BP 147 / 67; Pulse 67; Resp 18; Temp 98.3; Pulse Ox 98% ; Weight 83.91 kg; Height 5 ft. tw5 8 in. (172.72 cm); Pain 0/10; 02:00 BP 126 / 62; Pulse 60; Resp 14; Pulse Ox 100% on R/A; jb4 03:00 BP 112 / 48; Pulse 62; Resp 14; Pulse Ox 97% on R/A; jb4 04:06 BP 148 / 68; Pulse 61; Resp 19; Pulse Ox 99% on R/A; kd3 05:00 BP 112 / 49; Pulse 72; Resp 18; Pulse Ox 100% on R/A; jb4 06:00 BP 121 / 52; Pulse 60; Resp 15; Pulse Ox 96% on R/A; jb4 00:34 Body Mass Index 28.13 (83.91 kg, 172.72 cm) tw5 MDM: 00:26 Patient medically screened. rn 02:59 Differential diagnosis: acute myocardial infarction, coronary artery disease congestive cad intern failure gastroesophageal reflux disease (GERD), thoracic aortic disection. HEART Score: History: Highly Suspicious (2), ECG: Non specific repolarization disturbance / LBTB / PM (1), Age: > or = 65 years (2), Risk Factors: > or = 3 Risk factors for atherosclerotic disease (2), Troponin: < or = 1 x Normal Limit (0), Total Score = 7. Data reviewed: vital signs, nurses notes, lab test result(s). 02:59 Counseling: I had a detailed discussion with the patient and/or guardian regarding: the rn historical points, exam findings, and any diagnostic results supporting the discharge/admit diagnosis, lab results, radiology results, the need for further work-up and treatment in the hospital. Response to treatment: the patient's symptoms have markedly improved after treatment, and as a result, I will admit patient. Admission orders: after a detailed discussion of the patient's condition and case, the admit orders are written by me. 06:20 ED course: Pt with known descending aortic aneurysm and AAA, ct aorta without rn dissection, no other acute findings. Will admit for chest pain to Dr. Gibson. . 09/06 00:27 Order name: Basic Metabolic Panel; Complete Time: 02:42 09/06 00:27 Order name: CBC with Diff; Complete Time: 02:05 09/06 00:27 Order name: NT PRO-BNP; Complete Time: 02:42 09/06 00:27 Order name: PT-INR; Complete Time: 02:05 09/06 00:27 Order name: Troponin HS; Complete Time: 02:42 rn 09/06 00:27 Order name: COVID-19/FLU A+B; Complete Time: 02:42 09/06 00:27 Order name: XRAY Chest (1 view) 09/06 00:27 Order name: EKG; Complete Time: 00:28 rn 09/06 00:27 Order name: Cardiac monitoring; Complete Time: 00:54 rn 09/06 00:27 Order name: EKG - Nurse/Tech; Complete Time: 00:44 rn 09/06 00:27 Order name: IV Saline Lock; Complete Time: 01:39 rn 09/06 03:15 Order name: Angio Aorta For Dissection EDDC 09/06 00:27 Order name: Labs collected and sent; Complete Time: 01:49 rn 09/06 00:27 Order name: O2 Per Protocol; Complete Time: :49 rn 09/06 00:27 Order name: O2 Sat Monitoring; Complete Time: 01:49 rn EC:01 Rate is 62 beats/min. Rhythm is regular. QRS interval is prolonged at 160 msec. QT rn interval is normal. No Q waves. T waves are Normal. No ST changes noted. Clinical impression: Paced rhythm. Interpreted by me. Reviewed by me. Administered Medications: 06:47 Drug: Aspirin Chewable Tablet 324 mg Route: PO; jb4 07:08 Follow up: Response: No adverse reaction ll1 Disposition Summary: 09/06/22 03:00 Hospitalization Ordered Hospitalization Status: Observation rn Provider: Yvan Gibson rn Condition: Stable rn Problem: new rn Symptoms: have improved rn Bed/Room Type: Standard rn Location: Telemetry/MedSurg (observation)(09/06/22 06:25) cg Room Assignment: [facility](09/06/22 06:25) Diagnosis - Chest pain, unspecified rn Forms: - Medication Reconciliation Form rn - SBAR form rn Signatures: Dispatcher [employer] EDMS Gareth Riggins MD MD rn Garcia, Cindy RN RN Alberto Campbell RN RN [id number] Jennifer Bernal tw5 Tonie Montgomery RN RN kd3 Gerardo La RN ll1 Corrections: (The following items were deleted from the chart) 03:39 03:00 Telemetry/MedSurg (observation) rn cg 03:39 03:00 rn cg 06:25 03:39 [facility] ER HOLD cg cg 06:25 03:39 ERHOLD- cg cg
[2022-09-06] MEDS ORDERED: ASPIRIN 81 MG CHEWABLE TABLET ONE (06:33)
[2022-09-06] MEDS ORDERED: ONDANSETRON 4 MG/2 ML VIAL IV PRN (08:38)
--- NOTE | 2022-09-06 09:10 | P.HP ---
Certification for Inpatient Patient admitted to: Inpatient With expected LOS: >2 Midnights Patient will require the following post-hospital care: None Practitioner: I am a practitioner with admitting privileges, knowledge of patient current condition, hospital course, and medical plan of care. 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 He has a history of cad s/p cabg, htn, gout and ckd. He has some right sided chest pressure earlier this week. Had Called Dr. Herbert's office. However that pain resolved with tylenol, and was right sided He woke up last night with left sided chest pressure. The patient tried a tums with no improvement. He then took a sl NTG which helped. The patient was told by Dr. Herbert's nurse to come to the ER if he had any other episodes. So he did. Was found to have a negative troponin and elevated bNP. He had a CT of his abdomen. He had a aortic aneuyrism. This has been known. However the patient states the last exam it was approx 4.6 cm. So it is currently 5cm approx. No signs of dissection. The patient was admitted for typical chest pain symptoms. Allergies Penicillins Allergy (Intermediate, Verified 01/22/19 01:06) Hives Home Medications: Furosemide [Lasix*] 40 mg PO QOD QID 11/15/13 Metoprolol Succinate [Toprol Xl*] 50 mg PO DAILY 11/15/13 Atorvastatin Calcium [Lipitor] 80 mg PO DAILY 05/04/17 Fluticasone/Vilanterol [Breo Ellipta 100-25 Mcg INH] 1 each IH DAILY 05/04/17 Omeprazole 20 mg PO DAILY 07/26/18 Ipratropium/Albuterol Sulfate [Iprat-Albut 0.5-3(2.5) mg/3 ml] 1 amp IH Q3H 01/22/19 allopurinoL [Zyloprim*] 100 mg PO BID 01/22/19 Diphenhydramine HCl [Benadryl Allergy] 25 mg PO PRN 08/05/22 Finasteride 5 mg PO DAILY 08/05/22 Lubiprostone 24 mcg IH BID 08/05/22 Nitroglycerin [Nitrostat*] 0.4 mg PO PRN PRN 08/05/22 Tamsulosin [Flomax*] 0.4 mg PO DAILY 08/05/22 - Past Medical/Surgical History Diabetic: No -: CHF -: COPD -: PACEMAKER -: BPH -: CHRONIC CONSTIPATION -: AAA -: CAD -: High Cholesterol -: M.I. x 3 -: neuropathy -: AAA -: L elbow bursectomy, AAA resection -: tonsillectomy -: umbilectomy -: upper blephroplasty -: cardiac triple bypass -: hemorrhoidectomy -: polyp removal, MIX3, umbilical hernia repair, -: apendectomy - Family History Father -: Lung disease, Cancer Notes: LUNG DISEASE Mother Notes: AAA Sister Notes: NO HISTORY - Social History Alcohol use: Yes CD- Drugs: No Caffeine use: Yes Review of Systems 10-point ROS is otherwise unremarkable Cardiovascular: Chest Pain Physical Examination - Vital Signs Temperature: 98.3 F Blood Pressure: 121/52 Pulse: 60 Respirations: 15 - Physical Exam General: Alert, In no apparent distress HEENT: Atraumatic, PERRLA, Mucous membr. moist/pink, EOMI, Sclerae nonicteric Neck: Supple, 2+ carotid pulse no bruit, No LAD, Without JVD or thyroid abnormality Respiratory: Clear to auscultation bilaterally, Normal air movement Cardiovascular: Regular rate/rhythm, Normal S1 S2 Gastrointestinal: Normal bowel sounds, No tenderness Musculoskeletal: No tenderness Integumentary: No rashes Neurological: Normal gait, Normal speech, Normal strength at 5/5 x4 extr, Normal tone, Normal affect Lymphatics: No axilla or inguinal lymphadenopathy - Studies Laboratory Data (last 24 hrs) 09/06/22 01:48: PT 11.4, INR 1.04 09/06/22 01:48: WBC 7.20, Hgb 11.5 L, Hct 34.7 L, Plt Count 198 09/06/22 01:48: Sodium 141, Potassium 4.2, BUN 25 H, Creatinine 1.33 H, Glucose 116 H Assessment and Plan - Problems (Diagnosis) (1) Chest pain due to CAD Current Visit: Yes Status: Acute Plan: Will admit to the hospital. Follow serial troponins and consult cardiology (2) Abdominal aortic aneurysm (AAA) 3.0 cm to 5.5 cm in diameter in male Current Visit: Yes Status: Chronic Plan: stable for now. Will have him follow up with Dr. Herbert for serial ultrasounds to track the progression of the mass (3) Stage 2 chronic kidney disease due to benign hypertension Current Visit: Yes Status: Acute (4) HTN (hypertension) Current Visit: No Status: Acute Plan: continue his home medications. will adjust as necessary Qualifiers: Hypertension type: primary hypertension Qualified Code(s): I10 - Essential (primary) hypertension (5) Gout Onset Date: 06/19/15 Current Visit: No Status: Chronic Plan: will check his uric acid level. He is asymptomatic at this time. Qualifiers: Gout site: unspecified site Encounter type: subsequent encounter Chronicity: chronic Presence of tophus: without tophus Discharge Plan: Home Plan to discharge in: 48 Hours - Advance Directives Does patient have a Living Will: Yes Does patient have a Durable POA for Healthcare: Yes - Code Status/Comfort Care Code Status Assessed: Yes Code Status: Full Code Physician Review: Patient Assessed, Agree with Above Assessment and Plan Critical Care: No Time Spent Managing Pts Care (In Minutes): 45
[2022-09-06 11:21] VITALS: BMI 28.1
[2022-09-06] MEDS: PANTOPRAZOLE 40MG TABLET PO SCH (12:52)
[2022-09-06] MEDS: FUROSEMIDE 40 MG/4 ML VIAL IV SCH (13:00)
--- NOTE | 2022-09-06 13:09 | CON ---
Date of Consultation: 09/06/2022 Reason For Consultation: Chest pain. History Of Present Illness: This is an 82-year-old male with history of coronary artery disease, sta tus post CABG, chronic kidney disease, thoracic aortic aneurysm, dyslipidemia, presented to the emerg ency room with a chest pain on the left side, pressure-like, took nitroglycerin that helped the pain, so he presented to the emergency room. He called Dr. Herbert's office and he was told to come in wi th any chest pain. Past Medical History: As outlined above in the HPI. Medications: Refer to reconciliation sheet for detailed list. Allergies: PENICILLIN. Family History: No premature coronary artery disease or cancer. Social History: Does not smoke or drink or use any drugs. Review of Systems: All systems reviewed and they were negative except what mentioned in HPI. Physical Examination: Vital Signs: Show temperature is 97.9, pulse 62, breathing at 16, blood pressure 124/55, saturating 96%. General: Pleasant elderly male, in no apparent distress. Head and Neck: Pupils are equal, reactive to light. Intact eye movements. No JVD. No cervical lym phadenopathy. Neck is supple. Thyroid is not enlarged. Lungs: Decreased breathing sounds with rhonchi bilaterally. No accessory muscle use or muscle retra ction. Heart: Regular rate and rhythm. No extra sounds. Abdomen: Soft, nontender. Bowel sounds positive. No organomegaly. No masses or hernia. No rigidi ty or rebound. Extremities: Edema 1 to 2+ bilaterally. No clubbing or cyanosis. Intact pulses. Skin: No rash. Neurologic: Alert, awake, oriented x3. No acute focal deficits appreciated. Investigations: BUN 25, creatinine 1.33. NT-proBNP is 2982. Troponins x2 are negative. It was rep orted that he had a negative CT dissection protocol. Assessment And Recommendations: 1.Chest pain. No coronary artery disease history and thoracic aortic aneurysm as well that as per h is report measures 5.2 cm. Still await on final results of the CT of the chest with further recommen dations to follow. 2.Acute on chronic congestive heart failure exacerbation. Recommend Lasix intravenously. I will di scontinue the oral Lasix and put him on 40 mg IV daily to start today and monitor BUN, creatinine, an d electrolytes. SR/MODL Voice ID: [id number] Report ID: [id number]
[2022-09-06] MEDS: LUBIPROSTONE 24 MCG CAP PO SCH (17:15)
[2022-09-07 04:32] LABS: Absolute Lymphocytes (CBC) 1.3 K/uL (0.7-4.9); Hematocrit 34.4 % (39.6-49.0); Lymphocytes % 18.6 % (15.3-44.8); MPV 7.4 fL (7.6-11.3); RBC Red Blood Cell Count 3.78 M/uL (4.33-5.43)
[2022-09-07 04:46] LABS: Potassium 3.7 mmol/L (3.5-5.1)
[2022-09-07] MEDS: FUROSEMIDE 40 MG/4 ML VIAL IV SCH (07:46)
[2022-09-07] MEDS: ATORVASTATIN 80 MG TAB PO SCH (07:46)
[2022-09-07] MEDS: TAMSULOSIN 0.4 MG SR CAP PO SCH (07:47)
[2022-09-07] MEDS: PANTOPRAZOLE 40MG TABLET PO SCH (07:47)
[2022-09-07] MEDS: FINASTERIDE 5 MG TAB PO SCH (07:47)
[2022-09-07] MEDS: METOPROLOL XL 50 MG TAB PO SCH (07:47)
[2022-09-07] MEDS: LUBIPROSTONE 24 MCG CAP PO SCH (08:00)
[2022-09-07] MEDS ORDERED: PANTOPRAZOLE 40MG TABLET PO SCH (09:00)
[2022-09-07] MEDS ORDERED: HOME MED 1 EA UNK (Omeprazole [Omeprazole] 20 MG Capsule.Dr) PO SCH (09:00)
[2022-09-07] MEDS ORDERED: FUROSEMIDE 20 MG TABLET PO SCH (09:00)
--- NOTE | 2022-09-07 09:57 | RAD REPORT ---
EXAM DESCRIPTION: RAD - Chest Single View - 09/06/2022 1:00 am ADDENDUM #1 Addendum: Dr. Holman discussed these findings and recommendations with Dr. Gareth [facility] 02:39 hours EST on 09/06/2022. Electronically signed by: Venu Holman MD 09/06/2022 1:45 AM KENNEL ATTENDANT End of Addendum TECHNIQUE: XR Chest, 1 View CLINICAL HISTORY: The patient is 82 years old and is Male; CHEST PAIN TECHNIQUE: Frontal view of the chest. COMPARISON: No pertinent prior images available for comparison at time of dictation FINDINGS: LUNGS: Unremarkable. No consolidation. PLEURAL SPACE: Slight blunting of the right costophrenic angle suggesting a trace effusion versus p leural thickening. HEART: Unremarkable. No cardiomegaly. MEDIASTINUM: Unremarkable. BONES/JOINTS: Unremarkable. VASCULATURE: Tortuosity and/or ectasia of the ascending and descending thoracic aorta, uncertain ch ronicity given lack of available prior imaging. TUBES, LINES AND DEVICES: Cardiac stimulator device demonstrated over the left chest with leads ter minating in the right atria, right ventricle, and coronary sinus. IMPRESSION: 1. Tortuosity and/or ectasia of the ascending and descending thoracic aorta, uncertain chronicity given lack of available prior imaging. Consider further characterization by aortic dissec tion protocol CT if there is clinical suspicion for aortic dissection in a patient with reported know n descending thoracic aortic aneurysm. 2. Otherwise, no acute cardiopulmonary abnormality. Electronically signed by: Venu Holman MD 09/06/2022 1:35 AM KENNEL ATTENDANT Due to temporary technical issues with the PACS/Fluency reporting system, reports are being signed by the in house radiologists without review as a courtesy to insure prompt reporting. The interpreting radiologist is fully responsible for the content of the report.
--- NOTE | 2022-09-07 10:44 | RAD REPORT ---
EXAM DESCRIPTION: CT - Angio Aorta For Dissection - 09/06/2022 6:56 am CLINICAL HISTORY: Chest pain COMPARISON: None. TECHNIQUE: CT CHEST ABDOMEN PELVIS ANGIOGRAPHY WITH IV CONTRAST on 09/06/2022 3:13 AM DECORATING MACHINE TENDER. MIPS jo ann nstructions were generated. This exam was performed according to our departmental dose-optimization program, which includes autom ated exposure control, adjustment of the mA and/or kV according to patient size and/or use of iterati ve reconstruction technique. This examination was performed according to a CT angiographic (CTA) prot ocol with 3D post-processing. This involves 3D reconstructions, MIPS, volume rendered images and/or s haded surface rendering. FINDINGS: Vascular: Thoracic aorta is moderately atherosclerotic. Distal descending thoracic aortic aneurysm measures 5.6 cm. There is no dissection. Pulmonary arteries are adequately opacified without acute or chronic filling defects. Infrarenal abdominal aorta is aneurysmal to 3.5 cm. There are exte nsive calcifications of the pelvic arteries with probable moderate stenosis of the right external keith ac artery. There is a stent in the left external iliac artery. Pelvic arteries are patent without ane urysm or occlusion. Chest: The heart is normal in size. There is no pericardial effusion. Intrathoracic lymph nodes are n ot enlarged. There is no pleural effusion, pleural thickening or pneumothorax. Central airways are patent. There i s mild right basilar atelectasis or scarring. Abdomen: The liver is normal in appearance. There is no biliary dilatation. Gallbladder contains mult iple small layering gallstones. The pancreas and spleen are normal in appearance. Adrenal glands are normal. There is moderate bilateral renal atrophy. There is no free air. There is no retroperitoneal adenopathy. Pelvis: There is moderate diverticulosis of the left colon. Urinary bladder is unremarkable. There is no free fluid. There are large bilateral fat-containing inguinal hernias. Appendix is not clearly se en. Skeleton: There are no acute osseous findings. No suspicious bony lesions. IMPRESSION: Aneurysms of the descending and abdominal aorta. No dissection. Recommend surgical con sultation. Electronically signed by: Jose Davidson MD 09/06/2022 6:15 AM DECORATING MACHINE TENDER Due to temporary technical issues with the PACS/Fluency reporting system, reports are being signed by the in house radiologists without review as a courtesy to insure prompt reporting. The interpreting radiologist is fully responsible for the content of the report.
[2022-09-07] MEDS: [UNRECOGNIZED DRUG - OTHER] IH SCH (10:50)
--- NOTE | 2022-09-07 11:00 | P.PN ---
Subjective Date of Service: 09/07/22 Primary Care Provider: Arthur Chief Complaint: Chest pain Subjective: No new changes Review of Systems 10-point ROS is otherwise unremarkable Physical Examination - Vital Signs Temperature: 98.1 F Blood Pressure: 107/56 Pulse: 60 Respirations: 16 Pulse Ox (%): 93 - Physical Exam General: Alert, In no apparent distress HEENT: Atraumatic, PERRLA, EOMI Neck: Supple, JVD not distended Respiratory: Clear to auscultation bilaterally, Normal air movement Cardiovascular: Regular rate/rhythm, Normal S1 S2 Gastrointestinal: Normal bowel sounds, No tenderness Musculoskeletal: No tenderness Integumentary: No rashes Neurological: Normal speech, Normal tone, Normal affect Lymphatics: No axilla or inguinal lymphadenopathy Assessment And Plan - Current Problems (Diagnosis) (1) Chest pain due to CAD Current Visit: Yes Status: Acute Plan: Will admit to the hospital. Follow serial troponins and consult cardiology 09/07 No plans for stress test. He has no increased troponins. Will treat this as a chf exacerbation, as per cardiology. (2) Abdominal aortic aneurysm (AAA) 3.0 cm to 5.5 cm in diameter in male Current Visit: Yes Status: Chronic Plan: stable for now. Will have him follow up with Dr. Herbert for serial ultrasounds to track the progression of the mass (3) Stage 2 chronic kidney disease due to benign hypertension Current Visit: Yes Status: Acute (4) HTN (hypertension) Current Visit: No Status: Acute Plan: continue his home medications. will adjust as necessary Qualifiers: Hypertension type: primary hypertension Qualified Code(s): I10 - Essential (primary) hypertension (5) Gout Onset Date: 06/19/15 Current Visit: No Status: Chronic Plan: will check his uric acid level. He is asymptomatic at this time. Qualifiers: Gout site: unspecified site Encounter type: subsequent encounter Chronicity: chronic Presence of tophus: without tophus Discharge Plan: Home Plan to discharge in: 24 Hours - Code Status/Comfort Care Code Status Assessed: No Physician Review: Patient Assessed, Agree with Above Assessment and Plan Critical Care: No Time Spent Managing PTS Care (In Minutes): 20
[2022-09-07] MEDS: HOME MED [LUBIPROSTONE 24 MCG CAP] PO SCH (16:01)
[2022-09-07] MEDS ORDERED: HOME MED [LUBIPROSTONE 24 MCG CAP] PO SCH (17:00)
[2022-09-08] MEDS: [UNRECOGNIZED DRUG - OTHER] IH SCH (08:05)
[2022-09-08] MEDS: HOME MED [LUBIPROSTONE 24 MCG CAP] PO SCH ×2 (08:05→16:06)
[2022-09-08] MEDS: ATORVASTATIN 80 MG TAB PO SCH (08:06)
[2022-09-08] MEDS: FUROSEMIDE 40 MG/4 ML VIAL IV SCH (08:06)
[2022-09-08] MEDS: PANTOPRAZOLE 40MG TABLET PO SCH (08:06)
[2022-09-08] MEDS: METOPROLOL XL 50 MG TAB PO SCH (08:06)
[2022-09-08] MEDS: FINASTERIDE 5 MG TAB PO SCH (08:06)
[2022-09-08] MEDS: TAMSULOSIN 0.4 MG SR CAP PO SCH (08:06)
--- NOTE | 2022-09-08 10:10 | P.PN ---
Subjective Date of Service: 09/08/22 Primary Care Provider: Arthur Chief Complaint: Chest pain Subjective: New changes (Patient had difficulty getting out of bed) no reported chest pain Review of Systems 10-point ROS is otherwise unremarkable General: Weakness Physical Examination - Vital Signs Temperature: 97.1 F Blood Pressure: 120/66 Pulse: 70 Respirations: 18 Pulse Ox (%): 93 - Physical Exam General: Alert, In no apparent distress HEENT: Atraumatic, PERRLA, EOMI Neck: Supple, JVD not distended Respiratory: Clear to auscultation bilaterally, Normal air movement Cardiovascular: Regular rate/rhythm, Normal S1 S2 Gastrointestinal: Normal bowel sounds, No tenderness Musculoskeletal: No tenderness Integumentary: No rashes Neurological: Normal speech, Normal tone, Normal affect Lymphatics: No axilla or inguinal lymphadenopathy Assessment And Plan - Current Problems (Diagnosis) (1) Chest pain due to CAD Current Visit: Yes Status: Acute Plan: Will admit to the hospital. Follow serial troponins and consult cardiology 09/07 No plans for stress test. He has no increased troponins. Will treat this as a chf exacerbation, as per cardiology. (2) Protein-energy malnutrition Current Visit: Yes Status: Acute Plan: will order PT. He may need in patient rehab, or just home health. Will await PT's assesment Qualifiers: Protein-calorie malnutrition severity: moderate Qualified Code(s): E44.0 - Moderate protein-calorie malnutrition (3) Abdominal aortic aneurysm (AAA) 3.0 cm to 5.5 cm in diameter in male Current Visit: Yes Status: Chronic Plan: stable for now. Will have him follow up with Dr. Herbert for serial ultrasounds to track the progression of the mass (4) Stage 2 chronic kidney disease due to benign hypertension Current Visit: Yes Status: Acute (5) HTN (hypertension) Current Visit: No Status: Acute Plan: continue his home medications. will adjust as necessary Qualifiers: Hypertension type: primary hypertension Qualified Code(s): I10 - Essential (primary) hypertension (6) Gout Onset Date: 06/19/15 Current Visit: No Status: Chronic Plan: will check his uric acid level. He is asymptomatic at this time. Qualifiers: Gout site: unspecified site Encounter type: subsequent encounter Chronicity: chronic Presence of tophus: without tophus Physician Review: Patient Assessed, Agree with Above Assessment and Plan
[2022-09-08 12:54] VITALS: TEMP 97.5
--- NOTE | 2022-09-08 12:54 | EKG ---
Test Date: 2022-09-06 Test Time: 00:35:43 Insurance Clerk: MEASUREMENT RESULTS: Intervals: Rate: 62 NM: 162 QRSD: 160 QT: 476 QTc: 483 Chauvin: P: NM: 162 QRS: 266 T: 74 INTERPRETIVE STATEMENTS: AV dual-paced rhythm with frequent ventricular-paced complexes Biventricular pacemaker detected Abnormal ECG Compared to ECG 08/05/2022 12:38:37 No significant changes Electronically Signed On 09-08-22 12:50:41 ACCOUNT SOLUTIONS ANALYST by Yovani Harding
[2022-09-08 13:07] VITALS: O2SAT 95
--- NOTE | 2022-09-08 16:03 | P.DS ---
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 He has a history of cad s/p cabg, htn, gout and ckd. He has some right sided chest pressure earlier this week. Had Called Dr. Herbert's office. However that pain resolved with tylenol, and was right sided He woke up last night with left sided chest pressure. The patient tried a tums with no improvement. He then took a sl NTG which helped. The patient was told by Dr. Herbert's nurse to come to the ER if he had any other episodes. So he did. Was found to have a negative troponin and elevated bNP. He had a CT of his abdomen. He had a aortic aneuyrism. This has been known. However the patient states the last exam it was approx 4.6 cm. So it is currently 5cm approx. No signs of dissection. The patient was admitted for typical chest pain symptoms. Hospital Course: Patient was admitted for chest pain. His troponins are negative. The patient was seen by Dr. Harding. 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 Plans to discharge him on and possible outpatient intravascular intervention. Will follow up in the office in a week. Vital Signs/Physical Exam: Temp Pulse Resp BP Pulse Ox 97.5 F 77 18 113/55 L 95 09/08/22 12:00 09/08/22 12:00 09/08/22 12:00 09/08/22 12:00 09/08/22 12:00 General: Alert, In no apparent distress HEENT: Atraumatic, PERRLA, EOMI Neck: Supple, JVD not distended Respiratory: Clear to auscultation bilaterally, Normal air movement Cardiovascular: Regular rate/rhythm, Normal S1 S2 Gastrointestinal: Normal bowel sounds, No tenderness Musculoskeletal: No tenderness Integumentary: No rashes Neurological: Normal speech, Normal tone, Normal affect Lymphatics: No axilla or inguinal lymphadenopathy Laboratory Data at Discharge: WBC 6.80 K/uL (4.3-10.9) 09/07/22 04:20 Hgb 11.8 g/dL (13.6-17.9) L 09/07/22 04:20 Hct 34.4 % (39.6-49.0) L 09/07/22 04:20 Plt Count 197 K/uL (152-406) 09/07/22 04:20 PT 11.4 SECONDS (9.5-12.5) 09/06/22 01:48 INR 1.04 09/06/22 01:48 Sodium 138 mmol/L (136-145) 09/07/22 04:20 Potassium 3.7 mmol/L (3.5-5.1) 09/07/22 04:20 BUN 21 mg/dL (7-18) H 09/07/22 04:20 Creatinine 1.35 mg/dL (0.55-1.3) H 09/07/22 04:20 Glucose 107 mg/dL (74-106) H 09/07/22 04:20 Uric Acid 5.1 mg/dL (3.5-7.2) 09/06/22 09:27 Home Medications: Furosemide [Lasix*] 20 mg PO DAILY 11/15/13 Metoprolol Succinate [Toprol Xl*] 50 mg PO DAILY 11/15/13 Atorvastatin Calcium [Lipitor] 80 mg PO DAILY 05/04/17 Omeprazole 20 mg PO DAILY 07/26/18 Ipratropium/Albuterol Sulfate [Iprat-Albut 0.5-3(2.5) mg/3 ml] 1 amp IH Q3H PRN 01/22/19 allopurinoL [Zyloprim*] 100 mg PO BID 01/22/19 Diphenhydramine HCl [Benadryl Allergy] 25 mg PO PRN 08/05/22 Finasteride 5 mg PO DAILY 08/05/22 Lubiprostone 24 mcg PO BID 08/05/22 Nitroglycerin [Nitrostat*] 0.4 mg PO PRN PRN 08/05/22 Tamsulosin [Flomax*] 0.4 mg PO DAILY 08/05/22 Fluticasone/Umeclidin/Vilanter [Trelegy Ellipta 100-62.5-25] 1 inh IH DAILY 09/07/22 Furosemide [Lasix] 40 mg PO DAILY 30 Days #30 tab 09/08/22 New Medications: Furosemide [Lasix] 40 mg PO DAILY 30 Days #30 tab Diet: AHA Activity: Ad julia Followup: Yvan Gibson MD [ACTIVE - CAN ADMIT] - 1 Week Yovani Harding MD [ACTIVE - CAN ADMIT] - 1 Week Physician Review: Patient Assessed, Agree with Above Assessment and Plan Time spent managing pt's care (in minutes): 25
[2022-09-08 16:35] VITALS: BP 114/61
--- NOTE | 2022-09-08 20:14 | PN ---
Date of Progress Note: 09/07/2022 Subjective: Seen at bedside, doing well. No further chest pain. Review of Systems: No chest pain, shortness of breath, orthopnea, or cough. No nausea, vomiting, or diarrhea. All othe r systems reviewed and they were negative. Physical Examination: Vital Signs: Reviewed. Head And Neck: Pupils are equal and reactive to light. Intact eye movements. No JVD. No cervical lymphadenopathy. Neck is supple. Thyroid is not enlarged. Lungs: Clear to auscultation. No rhonchi, wheezing, or crackles. No accessory muscle use. Heart: Regular rate and rhythm. No extra sounds. Abdomen: Soft, nontender. Bowel sounds positive. No organomegaly. No masses or hernia. No rigidi ty or rebound. Extremities: No edema, clubbing, or cyanosis. Intact pulses. Skin: No rashes. Neurologic: Alert, awake, and oriented x3. No acute focal deficits appreciated. Investigations: Labs are reviewed. Assessment And Recommendation: 1.Chest pain. Cardiac enzymes were done and they were all negative and chest pain has resolved. CT scan of the chest dissection protocol was negative for any acute dissection. 2.Thoracic aortic aneurysm. It is measuring 5.6 cm. We will plan to consult Vascular Surgery for i ntervention. This patient is not a surgical candidate due to multiple thoracotomies in the past. We will plan arrangements for the patient to be seen by Vascular Surgery on outpatient basis for this dc tter. /JAMES Voice ID: [id number] Report ID: [id number]
--- NOTE | 2022-09-08 20:35 | PN ---
Date of Progress Note: 09/08/2022 Subjective: Seen at bedside. No new complaints. Review of Systems: No chest pain, shortness of breath, orthopnea, cough. No nausea, vomiting, diarrhea. No abdominal p ain. No dysuria, polyuria, or urgency. All other systems reviewed and are negative. Physical Examination: Vital Signs: Reviewed. Head and Neck: Pupils are equal, reactive to light. Intact eye movements. No JVD. No cervical lym phadenopathy. Neck: Supple. Thyroid is not enlarged. Lungs: Clear to auscultation bilaterally. No rhonchi, rales, or crackles. No accessory muscle use. Heart: Regular rate and rhythm. No extra sounds. Abdomen: Soft, nontender. Bowel sounds positive. No organomegaly. No masses or hernia. No rigidi ty or rebound. Extremities: No edema, clubbing, cyanosis. Intact pulses. SKIN: No rashes. Neurologic: Alert, oriented x3. No acute focal deficits appreciated. Investigation: Labs are reviewed. Assessment And Recommendation: 1.Acute on chronic congestive heart failure exacerbation. Appears to be euvolemic. From cardiology standpoint, patient can be released on oral Lasix 40 mg daily and follow up as an outpatient. 2.Thoracic aorta aneurysm measuring 5.6 cm. We will arrange for outpatient evaluation by Vascular S urgery on this matter. 3.Hypertension. Blood pressure is controlled. Continue current treatment. From cardiology standpoint, the patient can be released and follow up as an outpatient ba henry. /MODL Voice ID: [id number] Report ID: [id number]
== END 2022-09-08 16:44 | disposition home or self-care (01) | DRG 291 ==
LOC: ER 00:19 → OBSVTOIN 06:42 → 2ND 06:42
PROVIDERS: ADMIT Internal Medicine; ATTEND Internal Medicine
DX: I13.0 Hypertensive heart and chronic kidney disease with heart failure and stage 1 through stage 4 chronic kidney disease, or unspecified chronic kidney disease (principal); I50.23 Acute on chronic systolic (congestive) heart failure; E44.0 Moderate protein-calorie malnutrition; N18.2 Chronic kidney disease, stage 2 (mild); I71.9 Aortic aneurysm of unspecified site, without rupture; E78.5 Hyperlipidemia, unspecified; I71.40 Abdominal aortic aneurysm, without rupture, unspecified; I25.10 Atherosclerotic heart disease of native coronary artery without angina pectoris; J44.9 Chronic obstructive pulmonary disease, unspecified; M1A.9XX0 Chronic gout, unspecified, without tophus (tophi); I25.2 Old myocardial infarction; Z88.0 Allergy status to penicillin; Z95.0 Presence of cardiac pacemaker; Z68.28 Body mass index [BMI] 28.0-28.9, adult; Z87.891 Personal history of nicotine dependence; Z79.899 Other long term (current) drug therapy; Z20.822 Contact with and (suspected) exposure to COVID-19
CPT/HCPCS: 0240U; 36415; 71045; 71275; 74175; 80048; 83880; 84443; 84484; 84550; 85025; 85610; 93005; 97116; 97161; 97530; 99285; J1940; Q9967

== ENCOUNTER 2022-09-17 05:13 | Observation (INO) | payer OTHER ==
--- OUTSIDE RECORDS SUMMARY | 2022-09-17 05:18 | XMS REPORT | Continuity of Care Document ---
:1940 Author Organization [facility] t Address [address] [place] [address] Dr. Armando. [address] [place] [address] Care Team Providers Name Role Phone Asked, No Pcp Primary Care Physician Unavailable Tania Dozier Attending Clinician Unavailable EUSEBIA ALVARADO Attending Clinician Unavailable Eusebia Ivy Attending Clinician Doctor Unassigned, [place] Attending Clinician Unavailable Ena Palacios Attending Clinician Viviana Yee MD Attending Clinician [phone] Abigail Khan MA Attending Clinician Unavailable Juliette [...] Number Effective Date Expiration Date Jose BARRETO/[employer] [id number] 2021 00:00:00 [facility]ARE ADV CHOICE PPO CIGNA I [id number] 2020 00:00:00 Problems Condition Condition Condition Status [...] [facility] ins 2-12 Clear 00:00: [place] 00 [facility] Penicill DA Active MO HIVES [facility] ins 2-12 Clear 00:00: [place] 00 [facility] Penicill Propensi Active Hives Univer s in ty to 9-17 ity of adverse 00:00: [place] reaction 00 Medical s Branch PENICILL DRUG Active Hives Univers IN INGREDI 9-17 ity of 00:00: [place] 00 Medical Branch penicill DA Active U [facility] in V 10-14 Clear 00:00: [facility] No Known DA Active U 2007- [facility] Contrast 10-14 Clear Allergie 00:00: [place] [facility] No Known DA Active U 2007- [facility] Food 10-14 Clear Allergie 00:00: [place] [facility] No Known DA Active U 2007- [facility] Other 10-14 Clear Allergie 00:00: [place] [facility] PENICILL DA Active U RASH, 2007- [facility] IN SWELLING 10-14 Clear 00:00: [facility] Family History Family Member Diagnosis Comments Start Date Stop Date Source Natural brother Kidney disease [facility] Natural father Cancer [facility] Natural mother Heart disease [facility] Natural sister [facility] Natural [facility] Social History Social Habit Start Date Stop Date Quantity Comments Source History SDOH [facility] Drinks History SDRI [facility] Exposure to 2022-07-20 2022-07-30 Not sure University SARS-CoV-2 00:00:00 10:21:00 [facility] (event) [place] Tobacco use and 2022-07-30 2022-07-30 Smokeless tobacco Un iversity of exposure 00:00:00 00:00:00 non-user [facility] Alcohol intake 2021-02-05 2021-02-05 Current drinker [facility] 00[facility]00:00 00:00:00 of alcohol Hospital (finding) History SDOH 2020-07-26 2020-07-26 5 [facility] 00:00:00 00:00:00 Hospita l Alcohol Comment 2020-07-25 2020-07-25 [address] 00:00[facility]00 [facility]00[facility]00 night Hospital History of 2004-10-[address] [facility] of tobacco use 00:00:00 [facility] Sex Assigned At [birth year] [facility] 00:00:[facility]00 Hospital Smoking Status Start Date Stop Date Source Ex-smoker 2022-07-30 00:00:00 2022-07-30 00:00:00 [facility] Medications Ordered Filled Start Stop Current Ordering Indication Dosage Frequency Signature Comments Components Source Medication Medication Date Date Medication? Clinician (SIG) Name Name erick 2021-10 Yes 500mg Take 500 U nivers en 500 mg 0-19 mg by ity of tablet 11:22: mouth. [place] [address] Medical Branch sacubitriL- 2021-10 Yes 1{tbl} Take 1 [place] valsartan 0-19 tablet by ity o f (ENTRESTO) 11:22: mouth. [place] 24-26 mg 49 Medical tablet Branch acetaminoph 2021-10 Yes 500mg Take 500 U nivers en 500 mg 0-19 mg by ity of tablet 11:22: mouth. [place] [address] Medical Branch sacubitriL- 2021-10 Yes 1{tbl} Take 1 [place] valsartan 0-19 tablet by ity o f (ENTRESTO) 11:22: mouth. [place] 24-26 mg 49 Medical tablet Branch acetaminoph 2021-10 Yes 500mg Take 500 U nivers en 500 mg 0-19 mg by ity of tablet 11:22: mouth. [place] [address] Medical Branch sacubitriL- 2021-10 Yes 1{tbl} Take 1 [place] valsartan 0-19 tablet by ity o f (ENTRESTO) 11:22: mouth. [place] 24-26 mg 49 Medical tablet Branch tamsulosin 2021-10 Yes [id number] .4mg Take 1 Univers 0.4 mg 24 0-19 capsule by ity of hr capsule 00:00: mouth at [place] 00 bedtime. Medical Branch finasteride 2021-10 Yes [id number] 5mg Take 1 Univers 5 mg tablet 0-19 tablet by ity of 00:00: mouth in [place] 00 the Medical morning. Branch tamsulosin 2021-10 Yes [id number] .4mg Take 1 Univers 0.4 mg 24 0-19 capsule by ity of hr capsule 00:00: mouth at [place] 00 bedtime. Medical Branch finasteride 2021-10 Yes [id number] 5mg Take 1 Univers 5 mg tablet 0-19 tablet by ity of 00:00: mouth in [place] 00 the Medical morning. Branch tamsulosin 2021-10 Yes [id number] .4mg Take 1 Univers 0.4 mg 24 0-19 capsule by ity of hr capsule 00:00: mouth at [place] 00 bedtime. Medical Branch finasteride 2021-10 Yes [id number] 5mg Take 1 Univers 5 mg tablet 0-19 tablet by ity of 00:00: mouth in [place] 00 the Medical morning. Branch lubiproston Yes 24ug Take 24 Uni vers e 24 mcg 9-30 mcg by ity of capsule 00:00: mouth in [place] 00 the Medical morning Branch and 24 mcg in the evening. lubiproston Yes 24ug Take 24 Uni vers e 24 mcg 9-30 mcg by ity of capsule 00:00: mouth in [place] 00 the Medical morning Branch and 24 mcg in the evening. lubiproston Yes 24ug Take 24 Uni vers e 24 mcg 9-30 mcg by ity of capsule 00:00: mouth in [place] 00 the Medical morning Branch and 24 mcg in the evening. finasteride Yes [id number] 5mg Take 1 Univers 5 mg tablet 1-03 tablet by ity of 00:00: mouth [place] 00 daily. [facility] finasteride Yes [id number] 5mg Take 1 Univers 5 mg tablet 1-03 tablet by ity of 00:00: mouth [place] 00 daily. [facility] finasteride 2021- No [id number] 5mg Take 1 Univers 5 mg tablet 1-03 10-19 tablet by it y of 00:00: 00:00 mouth [place] 00 :00 daily. [facility] finasteride 2021- No [id number] 5mg Take 1 Univers 5 mg tablet 1-03 10-19 tablet by it y of 00:00: 00:00 mouth [place] 00 :00 daily. [facility] finasteride 2021- No [id number] 5mg Take 1 Univers 5 mg tablet 1-03 10-19 tablet by it y of 00:00: 00:00 mouth [place] 00 :00 daily. [facility] omega-3 2020-10 Yes 1g Take 1 g [...] SL) 41 Medical Branch finasteride 2020-10 Yes [id number] 5mg Take 1 Univers 5 mg tablet 0-04 tablet by ity of 00:00: mouth [place] 00 daily. Medical Branch tamsulosin 2020-10 Yes [id number] .4mg Take 1 Univers 0.4 mg 24 0-04 capsule by ity of hr capsule 00:00: mouth at [place] 00 bedtime. Medical Branch finasteride 2020-10 Yes [id number] 5mg Take 1 Univers 5 mg tablet 0-04 tablet by ity of 00:00: mouth [place] 00 daily. Medical Branch tamsulosin 2020-10 Yes [id number] .4mg Take 1 Univers 0.4 mg 24 0-04 capsule by ity of hr capsule 00:00: mouth at [place] 00 bedtime. Medical Branch finasteride 2020-10 Yes [id number] 5mg Take 1 Univers 5 mg tablet 0-04 tablet by ity of 00:00: mouth [place] 00 daily. Medical Branch tamsulosin 2020-10 Yes [id number] .4mg Take 1 Univers 0.4 mg 24 0-04 capsule by ity of hr capsule 00:00: mouth at [place] 00 bedtime. Medical Branch finasteride 2020-10 Yes [id number] 5mg Take 1 Univers 5 mg tablet 0-04 tablet by ity of 00:00: mouth [place] 00 daily. Medical Branch tamsulosin 2020-10 Yes [id number] .4mg Take 1 Univers 0.4 mg 24 0-04 capsule by ity of hr capsule 00:00: mouth at [place] 00 bedtime. Medical Branch finasteride 2020-10- No [id number] 5mg Take 1 Univers 5 mg tablet 0-04 10-19 tablet by it y of 00:00: 00:00 mouth [place] 00 :00 daily. Medical Branch tamsulosin 2020-10- No [id number] .4mg Take 1 Univers 0.4 mg 24 0-04 10-19 capsule by ity of hr capsule 00:00: 00:00 mouth [place] :00 bedtime. Medical Branch finasteride 2020-10- No [id number] 5mg Take 1 Univers 5 mg tablet 0-04 10-19 tablet by it y of 00:00: 00:00 mouth [place] 00 :00 daily. Medical Branch tamsulosin 2020-10- No [id number] .4mg Take 1 Univers 0.4 mg 24 0-04 10-19 capsule by ity of hr capsule 00:00: 00:00 [place] 00 :00 bedtime. Medical Branch finasteride 2020-10- No [id number] 5mg Take 1 Univers 5 mg tablet 0-04 10-19 tablet by it y of 00:00: 00:00 mouth [place] 00 :00 daily. Medical Branch tamsulosin 2020-10- No [id number] .4mg Take 1 Univers 0.4 mg 24 0-04 10-19 capsule by ity of hr capsule 00:00: 00:00 mouth [place] 00 :00 bedtime. Medical Branch finasteride Yes [id number] 5mg Take 1 Univers 5 mg tablet 9-24 tablet by ity of 00:00: mouth [place] 00 daily. Medical Branch tamsulosin Yes [id number] .4mg Take 1 Univers 0.4 mg 24 9-24 capsule by ity of hr capsule 00:00: mouth at [place] 00 bedtime. Medical Branch finasteride Yes [id number] 5mg Take 1 Univers 5 mg tablet 9-24 tablet by ity of 00:00: mouth [place] 00 daily. Medical Branch tamsulosin Yes [id number] .4mg Take 1 Univers 0.4 mg 24 9-24 capsule by ity of hr capsule 00:00: mouth at [place] 00 bedtime. Medical Branch tamsulosin Yes [id number] .4mg Take 1 Univers 0.4 mg 24 9-24 capsule by ity of hr capsule 00:00: mouth at [place] 00 bedtime. Medical Branch tamsulosin Yes [id number] .4mg Take 1 Univers 0.4 mg 24 9-24 capsule by ity of hr capsule 00:00: mouth at [place] 00 bedtime. Medical Branch tamsulosin 2021- No [id number] .4mg Take 1 Univers 0.4 mg 24 9-24 10-19 capsule by ity of hr capsule 00:00: 00:00 mouth [place] 00 :00 bedtime. Medical Branch tamsulosin 2021- No [id number] .4mg Take 1 Univers 0.4 mg 24 9-24 10-19 capsule by ity of hr capsule 00:00: 00:00 mouth [place] 00 :00 bedtime. Medical Branch tamsulosin 2021- No [id number] .4mg Take 1 Univers 0.4 mg 24 9-24 10-19 capsule by ity of hr capsule 00:00: 00:00 mouth [place] 00 :00 bedtime. Medical Branch finasteride 2021- No [id number] 5mg Take 1 Univers 5 mg tablet [...] He's not sure of the dosage allopurinoL 2020-0 Yes 100mg Q.5D Take 100 M ethodi (ZYLOPRIM) 4-[address] 100 MG 16:19: mouth 2 Hospita tablet 51 (two) l times a day. polyethylen 2020-0 Yes 17g QD Take 17 g M ethodi e glycol 4-[address] (GLYCOLAX) 16:19: daily. Hospi ta 17 51 l gram/dose powder desonide 2020-0 Yes Q.5D Apply Methodi (DESOWEN) 4-[address] 0.05 % 16:19: 2 (two) Hospita cream 51 times a l day. acetaminoph 2020-0 Yes 500mg Q6H Take 500 M ethodi [...] 16:19: daily. Hospita tablet 15 l omeprazole 2020-0 Yes 20mg QD Take 20 mg M ethodi (PriLOSEC) 4-[address] 20 MG 16:19: nightly. Hospita capsule 15 l finasteride 2020-0 Yes 5mg QD Take 5 mg M ethodi (PROSCAR) 5 4-[address] mg tablet 16:19: daily. Hospit a 15 l metoprolol 2020-0 Yes 50mg QD Take 50 mg M [...] 16:19: daily. Hospit a 15 l metoprolol Yes 50mg QD Take 50 mg M [...] 14 needed for l tablet sleep. DICLOFENAC 2017 Yes TAKE 1 Unive rs 75 mg [...] Unive rs INHALE 2-21 ity of 15:42: [address] ALBUTEROL 2015-10 Yes Inhale. Unive rs INHALE 2-21 ity of 15:42: [address] ALBUTEROL 2015-10 Yes Inhale. Unive rs INHALE 2-21 ity of 15:42: [address] ALBUTEROL 2015-10 Yes Inhale. Unive rs INHALE 2-21 ity of 15:42: [address] ALBUTEROL 2015-10 Yes Inhale. Unive rs INHALE 2-21 ity of 15:42: [address] ALBUTEROL 2015-10 Yes Inhale. Unive rs INHALE 2-21 ity of 15:42: [address] ALBUTEROL 2015-10 Yes Inhale. Unive rs INHALE 2-21 ity of 15:42: [place] [facility] BREO 2015-10 Yes USE 1 Univers ELLIPTA 2-14 INHALATION ity of 200-25 00:00: PO QD [place] mcg/dose 00 [facility] 2015-10 Yes USE 1 Univers ELLIPTA 2-14 INHALATION ity of 200-25 00:00: PO QD [place] mcg/dose 00 [facility] 2015-10 Yes USE 1 Univers ELLIPTA 2-14 INHALATION ity of 200-25 00:00: PO QD [place] mcg/dose 00 [facility] 2015-10 Yes USE 1 Univers ELLIPTA 2-14 INHALATION ity of 200-25 00:00: PO QD [place] mcg/dose 00 [facility] 2015-10 Yes USE 1 Univers ELLIPTA 2-14 INHALATION ity of 200-25 00:00: PO QD [place] mcg/dose 00 [facility] 2015-10 Yes USE 1 Univers ELLIPTA 2-14 INHALATION ity of 200-25 00:00: PO QD [place] mcg/dose 00 [facility] 2015-10 Yes USE 1 Univers ELLIPTA 2-14 INHALATION ity of 200-25 00:00: PO QD [place] mcg/dose 00 [facility] meloxicam Yes 7.5mg Take 7.5 Uni vers (MOBIC) 7.5 7-14 mg by ity of mg tablet 08:55: mouth [place] 06 daily. [facility] meloxicam Yes 7.5mg Take 7.5 Uni vers (MOBIC) 7.5 7-14 mg by ity of mg tablet 08:55: mouth [place] 06 daily. [facility] meloxicam Yes 7.5mg Take 7.5 Uni vers (MOBIC) 7.5 7-14 mg by ity of mg tablet 08:55: mouth [place] 06 daily. [facility] meloxicam Yes 7.5mg Take 7.5 Uni vers (MOBIC) 7.5 7-14 mg by ity of mg tablet 08:55: mouth [place] 06 daily. [facility] meloxicam Yes 7.5mg Take 7.5 Uni vers (MOBIC) 7.5 7-14 mg by ity of mg tablet 08:55: mouth [place] 06 daily. Medical Branch meloxicam 2015-0 Yes 7.5mg Take 7.5 Uni vers (MOBIC) 7.5 7-14 mg by ity of mg tablet 08:55: mouth [place] 06 daily. Medical Branch meloxicam 2016-0 Yes 7.5mg Take 7.5 Uni vers (MOBIC) 7.5 7-14 mg by ity of mg tablet 08:55: mouth [place] 06 daily. Medical Branch HYDROcodone 2015-0 Yes 1{tbl} Take 1 Tab Univers -acetaminop 7-14 by mouth 2 it y of hen (GeogoerCO 08:52: (two) [place] 5) 5-325 mg 21 times Medical tablet daily. Branch HYDROcodone 0 Yes 1{tbl} Take 1 Tab Univers -acetaminop 7-14 by mouth 2 it y of hen (GeogoerCO 08:52: (two) [place] 5) 5-325 mg 21 [...] by mouth 2 it y of hen (GeogoerCO 08:52: (two) [place] 5) 5-325 mg 21 times Medical tablet daily. Branch HYDROcodone 0 Yes 1{tbl} Take 1 Tab Univers -acetaminop 7-14 by mouth 2 it y of hen (NORCO 08:52: (two) [place] 5) 5-325 mg 21 times Medical tablet daily. Branch HYDROcodone 2015-0 Yes 1{tbl} Take 1 Tab Univers -acetaminop 7-14 by mouth 2 it y of hen (NORCO 08:52: (two) [place] 5) 5-325 mg 21 times Medical tablet daily. Branch metoprolol 2015-0 Yes TK 1 T PO [place] succinate 5-28 QD ity of XL (TOPROL 00:00: [place] XL) 50 mg 00 Medical 24 hr [...] 5-28 QD ity of XL (TOPROL 00:00: [place] XL) 50 mg 00 Medical 24 hr Branch tablet metoprolol Yes TK 1 T PO [place] succinate 5-28 QD ity of XL (TOPROL 00:00: [place] XL) 50 mg 00 Medical 24 hr Branch tablet metoprolol Yes TK 1 T PO [place] succinate 5-28 QD ity of XL (TOPROL 00:00: [place] XL) 50 mg 00 Medical 24 hr Branch tablet metoprolol Yes TK 1 T PO [place] succinate 5-28 QD ity of XL (TOPROL 00:00: [place] XL) 50 mg 00 Medical 24 hr Branch tablet furosemide 0 Yes 40mg Take 40 mg U nivers (LASIX) 20 9-04 by mouth ity o f mg tablet 00:00: daily. [place] [facility] furosemide 0 Yes 40mg Take 40 mg U nivers (LASIX) 20 9-04 by mouth ity o f mg tablet 00:00: daily. [place] [facility] furosemide 2014-0 Yes 40mg Take 40 mg U nivers (LASIX) 20 9-04 by mouth ity o f mg tablet 00:00: daily. [place] [facility] furosemide 2014-0 Yes 40mg Take 40 mg U nivers (LASIX) 20 9-04 by mouth ity o f mg tablet 00:00: daily. [place] [facility] furosemide 2014-0 Yes 40mg Take 40 mg U nivers (LASIX) 20 9-04 by mouth ity o f mg tablet 00:00: daily. [place] [facility] furosemide 2014-0 Yes 40mg Take 40 mg U nivers (LASIX) 20 9-04 by mouth ity o f mg tablet 00:00: daily. Medical Branch furosemide Yes 40mg Take 40 mg U nivers (LASIX) 20 9-04 by mouth ity o f mg tablet 00:00: daily. [facility] allopurinol Yes 100mg Take 100 U nivers (ZYLOPRIM) 9-03 mg by ity of 100 mg 00:00: mouth 2 [place] tablet 00 (two) Medical times Branch daily. colchicine Yes .6mg Take 0.6 Uni vers (COLCRYS) 9-03 mg by ity of 0.6 mg 00:00: mouth [place] tablet 00 daily. [facility] allopurinol Yes 100mg Take 100 U nivers (ZYLOPRIM) 9-03 mg by ity of 100 mg 00:00: mouth 2 [place] tablet 00 (two) Medical times Branch daily. colchicine Yes .6mg Take 0.6 Uni vers (COLCRYS) 9-03 mg by ity of 0.6 mg 00:00: mouth [place] tablet 00 daily. [facility] allopurinol Yes 100mg Take 100 U nivers (ZYLOPRIM) 9-03 mg by ity of 100 mg 00:00: mouth 2 [place] tablet 00 (two) Medical times Branch daily. colchicine Yes .6mg Take 0.6 Uni vers (COLCRYS) 9-03 mg by ity of 0.6 mg 00:00: mouth [place] tablet 00 daily. [facility] allopurinol Yes 100mg Take 100 U nivers (ZYLOPRIM) 9-03 mg by ity of 100 mg 00:00: mouth 2 [place] tablet 00 (two) Medical times Branch daily. colchicine Yes .6mg Take 0.6 Uni vers (COLCRYS) 9-03 mg by ity of 0.6 mg 00:00: mouth [place] tablet 00 daily. [facility] allopurinol Yes 100mg Take 100 U nivers (ZYLOPRIM) 9-03 mg by ity of 100 mg 00:00: mouth 2 [place] tablet 00 (two) Medical times Branch daily. colchicine Yes .6mg Take 0.6 Uni vers (COLCRYS) 9-03 mg by ity of 0.6 mg 00:00: mouth [place] tablet 00 daily. [facility] allopurinol Yes 100mg Take 100 U [...] 00:00: daily. Medical gram/dose Branch powder lovastatin Yes 20mg Take 20 mg U [...] [place] tablet 00 bedtime. Medical Branch terazosin Yes 10mg Take 10 mg [place] (HYTRIN) 10 8-01 by mouth ity of mg capsule 00:00: at [place] 00 bedtime. Medical Branch terazosin Yes 10mg Take 10 mg [place] (HYTRIN) 10 8-01 by mouth ity of mg capsule 00:00: at [place] 00 bedtime. Medical Branch terazosin Yes 10mg Take 10 mg [place] (HYTRIN) 10 8-01 by mouth ity of mg capsule 00:00: at [place] 00 bedtime. Medical Branch terazosin Yes 10mg Take 10 mg [place] (HYTRIN) 10 8-01 by mouth ity of mg capsule 00:00: at [place] 00 bedtime. Medical Branch terazosin 0 2021- No 10mg Take 10 mg U nivers (HYTRIN) 10 8-01 10-19 by mouth ity of mg capsule 00:00: 00:00 at [place] 00 :00 bedtime. Medical Branch terazosin 0 2021- No 10mg Take 10 mg U nivers (HYTRIN) 10 05-12 by mouth ity of mg capsule [...] Immunizations Ordered Filled Immunization Date Status Comments [facility] e Immunization Name Name SARS-COV-2 COVID-19 2021-07-15 Completed Unive rsity of PFIZER VACCINE 00:00:00 [facility] SARS-COV-2 COVID-19 2021-07-15 Completed Unive rsity of PFIZER VACCINE 00:00:00 [facility] SARS-COV-2 COVID-19 2021-07-15 Completed Unive rsity of PFIZER VACCINE 00:00:00 [facility] SARS-COV-2 COVID-19 2021-07-15 Completed Unive rsity of PFIZER VACCINE 00:00:00 [facility] SARS-COV-2 COVID-19 2021-07-15 Completed Unive rsity of PFIZER VACCINE 00:00:00 [facility] SARS-COV-2 COVID-19 2021-07-15 Completed Unive rsity of PFIZER VACCINE 00:00:00 [facility] SARS-COV-2 COVID-19 2021-07-15 Completed Unive rsity of PFIZER VACCINE 00:00:00 [facility] SARS-COV-2 COVID-19 2021-01-17 Completed Unive rsity of PFIZER VACCINE 00:00:00 [facility] SARS-COV-2 COVID-19 2021-01-17 Completed Unive rsity of PFIZER VACCINE 00:00:00 [facility] SARS-COV-2 COVID-19 2021-01-17 Completed Unive rsity of PFIZER VACCINE 00:00:00 [facility] SARS-COV-2 COVID-19 2021-01-17 Completed Unive rsity of PFIZER VACCINE 00:00:00 [facility] SARS-COV-2 COVID-19 2021-01-17 Completed Unive rsity of PFIZER VACCINE 00:00:00 [facility] SARS-COV-2 COVID-19 2021-01-17 Completed Unive rsity of PFIZER VACCINE 00:00:00 [facility] SARS-COV-2 COVID-19 2021-01-17 Completed Unive rsity of PFIZER VACCINE 00:00:00 [facility] SARS-COV-2 COVID-19 2020-12-26 Completed Unive rsity of PFIZER VACCINE 00:00:00 [facility] SARS-COV-2 COVID-19 2020-12-26 Completed Unive rsity of PFIZER VACCINE 00:00:00 [facility] SARS-COV-2 COVID-19 2020-12-26 Completed Unive rsity of PFIZER VACCINE 00:00:00 [facility] SARS-COV-2 COVID-19 2020-12-26 Completed Unive rsity of PFIZER VACCINE 00:00:00 [facility] SARS-COV-2 COVID-19 2020-12-26 Completed Unive rsity of PFIZER VACCINE 00:00:00 [facility] SARS-COV-2 COVID-19 2020-12-26 Completed Unive rsity of PFIZER VACCINE 00:00:00 [facility] SARS-COV-2 COVID-19 2020-12-26 Completed Unive rsity of PFIZER VACCINE 00:00:00 [facility] Vital Signs Vital Name Observation Time Observation Value Comments Source Systolic blood 2022-07-30 15:45:00 120 mm[Hg] Univer sity of pressure [facility] Diastolic blood 2022-07-30 15:45:00 69 mm[Hg] Unive rsity of pressure [facility] Heart rate 2022-07-30 15:45:00 63 [facility] Respiratory rate 2022-07-30 15:45:00 16 /min Univ ersity of [facility] Body height 2022-07-30 15:45:00 175.3 cm Universi ty [facility] Body weight 2022-07-30 15:45:00 85.911 kg Universi ty [facility] BMI 2022-07-30 15:45:00 27.97 kg/m2 Universi ty [facility] Oxygen saturation in 2022-07-30 15:45:00 100 /min room air University of Arterial blood by [facility] Pulse oximetry Branch Systolic blood 2021-07-15 20:01:00 113 mm[Hg] Univer sity of pressure [facility] Diastolic blood 2021-07-15 20:01:00 66 mm[Hg] Unive rsity of [facility] Heart rate 2021-07-15 20:01:00 86 /min Universi ty [facility] Body temperature 2021-07-15 20:01:00 35.5 Julia [facility] 2021-07-15 20:01:00 18 /min [facility] Body height 2021-07-15 20:01:00 175.3 cm Universi ty [facility] Body weight 2021-07-15 20:01:00 93.35 kg Universi ty [facility] BMI 2021-07-15 20:01:00 30.39 kg/m2 Universi ty [facility] Oxygen saturation in 2021-07-15 20:01:00 97 /min University of Arterial blood by [facility] Pulse oximetry Branch Procedures Procedure Date / Time Performed Performing Clinician Sour e POCT URINALYSIS AUTO 2022-07-30 15:44:00 [facility]usebia [facility]varado [facility]/REFUSAL FOR 2022-07-30 15:24:13 [facility] Unassigned, [facility] TREATMENT POCT URINALYSIS AUTO 2021-07-15 20:05:00 Ena Wells [facility] of [facility] Planned Activity Planned Date Details Comments Source Future Scheduled 2022-09-16 HEPATITIS B VACCINES [facility] Test 15:17:10 (1 of 3 - 3-dose series) [code = HEPATITIS B VACCINES (1 of 3 - 3-dose series)] Future Scheduled 2022-09-16 SHINGLES VACCINES ([facility] 15:17:10 of 2) [code = SHINGLES VACCINES (1 of 2)] Future Scheduled 2022-09-16 65+ PNEUMOCOCCAL [facility] Hospital Test 15:17:10 VACCINE (1 - PCV) [code = 65+ PNEUMOCOCCAL VACCINE (1 - PCV)] Future Scheduled 2022-09-16 COVID-19 VACCINE (4 - Me [facility] Test 15:17:10 Booster for Pfizer series) [code = COVID-19 VACCINE (4 - Booster for Pfizer series)] Future Scheduled 2022-09-16 INFLUENZA VACCINE Method [facility] Test 15:17:10 [code = INFLUENZA VACCINE] Future Scheduled 2022-08-14 HEPATITIS B VACCINES [facility] Test 08:49:25 (1 of 3 - 3-dose series) [code = HEPATITIS B VACCINES (1 of 3 - 3-dose series)] Future Scheduled 2022-08-14 SHINGLES VACCINES (1 Met [facility] Hospital Test 08:49:25 of 2) [code = SHINGLES VACCINES (1 of 2)] Future Scheduled 2022-08-14 65+ [facility]25 VACCINE (1 - PCV) [code = 65+ PNEUMOCOCCAL VACCINE (1 - PCV)] Future Scheduled 2022-08-14 COVID-19 VACCINE (4 - Me [facility] Test 08:49:25 Booster for Pfizer series) [code = COVID-19 VACCINE (4 - Booster for Pfizer series)] Future Scheduled 2022-08-14 INFLUENZA VACCINE [facility] [facility] Test 08:49:25 [code = INFLUENZA VACCINE] Future Scheduled 2022-08-05 HEPATITIS B VACCINES Met [facility] Test 12:29:06 (1 of 3 - 3-dose series) [code = HEPATITIS B VACCINES (1 of 3 - 3-dose series)] Future Scheduled 2022-08-05 SHINGLES VACCINES (1 Met [facility] Hospital Test 12:29:06 of 2) [code = SHINGLES VACCINES (1 of 2)] Future Scheduled 2022-08-05 65+ PNEUMOCOCCAL Method[facility] Test 12:29:06 VACCINE (1 - PCV) [code = 65+ PNEUMOCOCCAL VACCINE (1 - PCV)] Future Scheduled 2022-08-05 COVID-19 VACCINE (4 - Me [facility] Hospital Test 12:29:06 Booster for Pfizer series) [code = COVID-19 VACCINE (4 - Booster for Pfizer series)] Future Scheduled 2022-08-05 INFLUENZA VACCINE [facility] Test 12:29:06 [code = INFLUENZA VACCINE] Encounters Start End Encounter Admission Attending Care Care Encounter Source Date/Time Date/Time Type Type Clinicians Facility Department ID 2019-11-22 Inpatient HematpourAVRIL [id number] [facility] 09:30:00 Tania 22 [facility] 2022-07-30 2022-07-30 Outpatient R [facility] [id number] Univers 10:30:00 11:13:28 EUSEBIA peres o f [facility] 2022-07-30 2022-07-30 [facility] 1.2.840.114 [id number] Univers 10:30:00 11:13:28 Visit Eusebia CAM 350.1.13.10 [place] [phone] Nm dical NAL [address] [place] [address] 2022-07-30 2022-07-30 Orders Doctor SREE 1.2.840.114 [id number] Univers 00:00:00 00:00:00 Only Unassigned, ELSIE 350.1.13.10 ity of [place] [facility] 4.2.7.2.686 Guido as [phone] [address] 2021-10-14 2021-10-14 Refill [facility] 1.2.840.114 [id number] Univers 00:00:00 00:00:00 Ena CAM 350.1.13.10 [place] [phone] Nm dical NAL 204 [facility] 2021-09-18 2021-09-18 Telephone Joselito, 1.2.840.1 [id number] Methodi 08:10:00 08:15:56 Consult Viviana 04083.1.1 962 s t Sascha 3.430.2.7 Hospi ta .3.504663 l .8 2021-09-18 2021-09-18 Telephone Joselito, 1.2.840.1 [id number] Methodi 08:10:00 08:15:56 Consult Viviana 35576.1.1 962 s t Sascha 3.430.2.7 Hospi ta .3.177557 l .8 2021-09-18 2021-09-18 Orders Erin, 1.2.840.1 [id number] Methodi 00:00:00 00:00:[address] Abigail 51670.1.[address] 3.430.2.7 Hospit a .3.167210 l .8 2021-09-18 2021-09-18 Orders Erin, 1.2.840.1 [id number] Methodi 00:00:00 00:00:00 Only Abigail 32766.1.[address] 3.430.2.7 Hospit a .3.052686 l .8 2021-09-09 2021-09-09 Telephone [place] 1.2.840.1 [id number] Methodi 00:00:00 00:00:00 , Juliette [address]72.1.[address] 3.430.2.7 Hospit a .3.457034 l .8 2021-08-12 2021-08-12 Telephone [place] 1.2.840.1 [id number] Methodi 00:00:00 00:00:00 , Juliette 23238.1.[address] 3.430.2.7 Hospit a .3.182629 l .8 2021-08-06 2021-08-06 Travel 1.2.840.1 1.2.671.734 [id number] Methodi 00:00:00 00:00:[address] 3.430.2.7 0.2.7.3.698 Ho spita .3.706364 084.8 l .8 2021-07-16 2021-07-16 Telephone [facility], [facility] 1.2.463.110 [id number] [facility] 00:00:00 00:00:00 Ena Cam 350.1.13.10 [place] [phone] Nm dical nal 204 [facility] 2021-07-15 2021-07-15 Outpatient R [facility] [id number] Univers 15:00:00 15:39:32 ENA peres [facility] 2021-07-15 2021-07-15 Office [facility] 1.2.840.114 [id number] Univers 14:42:07 15:39:32 Visit Ena Cam 350.1.13.10 [place] [phone] Nm dical nal 204 [facility] 2021-07-15 2021-07-15 Outpatient R [facility] [id number] Univers 14:40:00 14:40:00 RY peres [facility] 2021-07-15 2021-07-15 Imm/Inj Nurse, Adc Pob Immunization [facility] 1.2.840.114 [id number] Univers 14:34:57 14:35:05 Visit Ry [place] 350.1.13 .10 [place] [phone] Nm dical [facility] 421 [facility] 2021-07-10 2021-07-10 Outpatient R [facility] [id number] Univers 14:30:00 14:30:00 ENA peres [facility] 2021-07-05 2021-07-05 Telephone [facility] 1.2.833.602 [id number] Univers 00:00:00 00:00:00 Ena Cam 350.1.13.10 [place] [phone] Nm dical nal [address] [place] [address] 2021-07-05 2021-07-05 Orders Doctor BALBUENA 1.2.840.114 [id number] Univers 00:00:00 00:00:00 Only Unassigned, ELSIE 350.1.13.10 ity of [place] [facility] 4.2.7.2.686 Guido as [phone] [address] 2021-07-04 2021-07-04 Telephone [facility] 1.2.840.114 [id number] Univers 00:00:00 00:00:00 Flaco Corina 350.1.13.10 i ty [facility] [place] [phone] Nm dic[address] 2021-05-27 2021-05-27 Outpatient R RONAL [facility] [id number] Univers 11:30:00 11:30:00 FLACO ity [facility] 2021-02-05 2021-02-05 Outpatient [facility] [id number] [address] [place] [address] 00:00:00 00:00:00 VIVIANA 959 Met [facility] 2021-01-28 2021-01-28 Outpatient [facility] [id number] [address] [place] [address] 00:00:00 00:00:00 VIVIANA 083 Met [facility] 2021-01-17 2021-01-17 Outpatient R LIVIA [facility] [id number] Univers 12:00:00 11:21:21 TOR ity [facility] 2020-12-26 2020-12-26 Outpatient [facility] [id number] Univers 12:00:00 11:13:50 TOR ity [facility] 2020-12-19 2020-12-19 Outpatient R [facility] [id number] Univers 14:30:00 14:30:00 ENA peres [facility] 2020-09-29 2020-09-29 Telephone [facility] 1.2.797.949 [id number] Univers 00:00:00 00:00:00 Ena Cam 350.1.13.10 ity [facility] [place] [phone] Nm dical nal [address] [place] [address] 2020-09-24 2020-09-24 Case [facility] 1.2.840.114 [id number] Univers 00:00:00 00:00:00 Management Ena A [place] 350.1.13.10 [place] [phone] Nm dical [address] 2020-09-22 2020-09-22 Telephone [facility] 1.2.766.433 [id number] Univers 00:00:00 00:00:00 Ena Saunders Corina 350.1.13.10 [place] [phone] [address] 2020-09-19 2020-09-19 Office [facility] 1.2.840.114 [id number] Univers 15:06:02 15:58:17 Visit Ena Saunders Corina 350.1.13.10 [place] [phone] [address] 2020-09-19 2020-09-19 Outpatient [facility] [id number] Univers 15:15:00 15:15:00 ENA peres [facility] 2020-09-12 2020-09-12 Outpatient [facility] [id number] Univers 13:30:00 13:30:00 ENA peres [facility] 2020-08-29 2020-08-29 Outpatient R [facility] [id number] Univers 13:30:00 13:30:00 ENA peres [facility] 2020-07-25 2020-07-27 Inpatient [facility] [id number] 98 [place] 00:00:00 00:00:00 VINAYAK [address] 2020-07-05 2020-07-05 Office [facility] 1.2.840.114 [id number] Univers 14:53:28 16:00:47 Visit Flaco Cam 350.1.13.10 i ty [place] [phone] [address] 2020-07-05 2020-07-05 [facility] 1.2.840.114 [id number] [facility] 14:53:28 16:00:47 Visit Flaco Cam 350.1.13.10 [place] 4.2.7.2.686 Professio [phone] [facility] 204 [facility] 2020-07-05 2020-07-05 Outpatient Nikkie [facility] [id number] Univers 15:00:00 15:00:00 [facility] 2020-07-05 2020-07-05 Orders Doctor SREE 1.2.840.114 [id number] Univers 00:00:00 00:00:00 Only Unassigned, ELSIE 350.1.13.10 ity of [place] [facility] 4.2.7.2.686 Guido as [phone] [address] 2020-06-14 2020-06-14 Outpatient Nikkie [facility] [id number] Univers 11:00:00 11:00:00 [facility] 2017-07-14 2017-07-14 Outpatient Batsheva [facility] [id number] [facility] 10:47:00 10:47:00 [facility] Results Test Description Test Time Test [...] U APPEAR (test code = 3267) Color [facility] [id number] 15:45:00 Test Item Value Reference Range Interpretation [...] U APPEAR (test code = Color 3267) [facility] URINALYSIS, [id number] 15:45:00 Test Item Value Reference Range Interpretation [...] U APPEAR (test code = Color 3267) [facility] URINALYSIS, [id number] 20:05:00 Test Item Value Reference Range Interpretation [...] U APPEAR (test code = clear 3267) [facility] ([facility]OVID-19) RNA [Presence] in Respiratory specimen by LESLY with probe [id number] 01:26:43 Test Item Value Reference Range Interpretation Comments SARS-CoV-2 (COVID-19) RNA Not detected Not-Detected [Presence] in Respiratory specimen by LESLY with probe detection (test code = 73572-2) [place] [facility] WESTPROTHROMBIN [id number] 13:38:00 Test Item Value Reference Range Interpretation [...] (to prevent recurrent infar ct). BASIC METABOLIC [id number] 13:33:00 Test Item Value Reference Range Interpretation [...] 8.0-10.5 N CA) - XR CHEST 1 [id number] 13:30:00 FAX: Tania Melendez [phone] [place]: St: REG Name: MARIA JASS[facility] : 1940 Age/S: 79/M [address] [place] [address] Unit #: [id number] Loc: [place] [address] Phys: Tania Dozier MD Acct: [id number] Dis Date: Status: REG [facility] PHONE #: [phone] Exam Date: 11/24/2019 1327 FAX #: [phone] Reason: PRE PROCEDURE EXAMS: CPT CODE: [id number] XR CHEST 1 V 47305 Exam: Chest radiograph frontal view Indication: 79-year-old male, preprocedure. Comparison: None. Technique: Chest radiograph frontal view. Findings: The cardiomediastinal silhouette is within normal limits. There are multiple median sternotomy wires. There is a left pectoral implantable cardiac device. There is no focal airspace consolidation. No pleural effusion. No pneumothorax. No acute osseous abnormality. Impression: No acute cardiopulmonary disease. SL: [id number] at 1330 Reported and signed by: Jared West M.D. CC: Tania Hematheike OLVERA Technologist: NIDA Rueda) Trnscrd Date/Time/By: 11/24/2019 (0890) : By: [email or web address] Orig Print D/T: S: 11/24/2019 (4458) PAGE 1 Signed ReportBASIC METABOLIC [id number] 13:24:00 Test Item Value Reference Range Interpretation [...] CA) 9.3 mg/dL 8.0-10.5 N CBC W/AUTO [id number] 13:13:00 Test Item Value Reference Range Interpretation [...]
[2022-09-17] MEDS ORDERED: FAMOTIDINE 20 MG/2 ML VIAL IV ONE (05:37)
[2022-09-17] MEDS ORDERED: ASPIRIN EC 81 MG TAB PO ONE (05:37)
[2022-09-17 06:00] LABS: RBC Red Blood Cell Count 4.08 M/uL (4.33-5.43)
[2022-09-17 06:01] LABS: Absolute Lymphocytes (CBC) 1.4 K/uL (0.7-4.9); Hematocrit 37.2 % (39.6-49.0); Lymphocytes % 21.6 % (15.3-44.8); MCV 91.1 fL (80-100); MPV 7.7 fL (7.6-11.3)
[2022-09-17 06:09] LABS: Protime INR 1.01
[2022-09-17 06:10] LABS: SARS-CoV-2 Antigen Rapid Res Negative (Negative)
[2022-09-17 06:26] LABS: Albumin 3.5 g/dL (3.4-5.0); Bilirubin Direct 0.2 mg/dL (0-0.2); Bilirubin Total 0.6 mg/dL (0.2-1.0); Magnesium 2.1 mg/dL (1.8-2.4); Protein, Total 6.5 g/dL (6.4-8.2); Troponin High Sensitivity 27.6 pg/mL (<58.9)
--- NOTE | 2022-09-17 07:04 | ER ---
Nurse's Notes [facility] Name: Jair Jasso Age: 82 yrs Sex: Male : 1940 Arrival Date: 09/17/2022 Time: 05:16 Bed 2 Private MD: Diagnosis: Thoracic aortic aneurysm, without rupture;Chest pain, unspecified;Unspecified kidney failure-acute on chronic Presentation: 09/17 05:17 Chief complaint: EMS states: they were toned out for report of pt with chest pain which bb started around 0200 pt took his own nitro x 1 and pain went away but he wanted to be checked out pt was seen here last week for the same thing and discharged home. Coronavirus screen: At this time, the client does not indicate any symptoms associated with coronavirus-19. Ebola Screen: No symptoms or risks identified at this time. Initial Sepsis Screen: Does the patient meet any 2 criteria? No. Patient's initial sepsis screen is negative. Does the patient have a suspected source of infection? No. Patient's initial sepsis screen is negative. Risk Assessment: Do you want to hurt yourself or someone else? Patient reports no desire to harm self or others. Onset of symptoms was September 17, 2022. 05:17 Method Of Arrival: EMS: [facility] bb 05:17 Acuity: SILVIA 3 bb Triage Assessment: 09:46 General: Appears in no apparent distress. comfortable, Behavior is calm, cooperative, kc6 appropriate for age. Historical: - Allergies: 05:19 PENICILLINS; bb - Home Meds: 05:19 Allopurinol Oral [Active]; Lasix Oral [Active]; losartan Oral [Active]; bb - PMHx: 05:19 AAA; Cellulitis; CHF; COPD; Hypertensive disorder; Myocardial infarction; bb - PSHx: 05:19 Appendectomy; Coronary artery bypass graft; Tonsillectomy; bb - Immunization history:: Pfizer x 4. - Social history:: Smoking status: Patient denies any tobacco usage or history of. - Family history:: not pertinent. Screenin:46 Abuse screen: Denies threats or abuse. Denies injuries from another. Nutritional kc6 screening: No deficits noted. Tuberculosis screening: No symptoms or risk factors identified. Fall Risk No fall in past 12 months (0 pts). No secondary diagnosis (0 pts). IV access (20 points). Ambulatory Aid- None/Bed Rest/Nurse Assist (0 pts). Gait- Normal/Bed Rest/Wheelchair (0 pts) Mental Status- Oriented to own ability (0 pts). Total Martinez Fall Scale indicates No Risk (0-24 pts). Vital Signs: 05:17 BP 136 / 66; Pulse 61; Resp 16 S; Temp 97.9(O); Pulse Ox 100% on R/A; Weight 81.65 kg bb (R); Height 5 ft. 8 in. (172.72 cm) (R); Pain 0/10; 05:17 Body Mass Index 27.37 (81.65 kg, 172.72 cm) bb ED Course: 05:16 Patient arrived in ED. bb 05:19 Triage completed. 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 EKG completed in triage. Results shown to MD. 05:31 Melchor Reeves MD is Attending Physician. kirti 05:44 XRAY Chest (1 view) In Process Unspecified. EDMS 05:55 No provider procedures requiring assistance completed. Initial lab(s) drawn, by cecelia pate sent to lab. Inserted saline lock: 22 gauge in right wrist, using aseptic technique. Blood collected. Patient maintains SpO2 saturation greater than 95% on room air. 07:02 Yvan Gibson MD is Hospitalizing Provider. [facility] 07:18 CT Aorta for Dissection In Process Unspecified. EDMS 07:18 Tiffany Read, RN is Primary Nurse. kc6 09:47 Patient has correct armband on for positive identification. Placed in gown. Bed in low kc6 position. Call light in reach. Side rails up X2. Client placed on continuous cardiac and pulse oximetry monitoring. NIBP monitoring applied. skein bander on. Administered Medications: 05:55 Drug: Aspirin 81 mg Route: PO; ll3 06:55 Follow up: Response: No adverse reaction kc6 05:55 Drug: Pepcid (famotidine) 20 mg Route: IVP; Site: right wrist; ll3 06:55 Follow up: Response: No adverse reaction kc6 07:19 Drug: Lopressor (metoprolol TARTRATE) 50 mg Route: PO; kc6 08:19 Follow up: Response: No adverse reaction; Blood sugar is lowered kc6 07:53 CANCELLED (Duplicate Order): Lovenox (enoxaparin) 80 mg Sub-Q once [facility] 09:39 Drug: Mucomyst - Acetylcysteine 600 mg Route: PO; kc6 09:46 Follow up: Response: No adverse reaction kc6 Medication: 09:47 VIS not applicable for this client. kc6 Outcome: 07:03 Decision to Hospitalize by Provider. [facility] 09:47 Admitted to Med/surg accompanied by tech, via stretcher, room 410, with chart, Report kc6 called to ARCHANA Smith 09:47 Condition: stable 09:47 Instructed on the need for admit. 10:16 Patient left the ED. kc6 Signatures: Dispatcher [employer] EDMelchor Neville MD MD cha Ballard, Brenda, RN RN Uriel Alcantara RN RN ll3 Tiffany Read RN RN kc6 Corrections: (The following items were deleted from the chart) 09:57 09:47 Admitted to Med/surg accompanied by tech, via stretcher, room 410, with chart, [id number]
--- NOTE | 2022-09-17 07:04 | EDPHYS ---
Physician Documentation [facility] Name: Jair Jasso Age: 82 yrs Sex: Male : 1940 Arrival Date: 09/17/2022 Time: 05:16 Bed 2 Private MD: ED Physician Melchor Reeves HPI: 09/17 06:24 This 82 yrs old Male presents to ER via EMS with complaints of Chest Pain > kirti 28 y/o. 06:24 The patient or guardian reports chest pain that is located primarily in the substernal kirti area. Onset: just prior to arrival. The pain does not radiate. Associated signs and symptoms: The patient has no apparent associated signs or symptoms. The chest pain is described as aching. Duration: The patient or guardian reports a single episode, that is now resolved. Severity of pain: At its worst the pain was moderate in the emergency department the pain is unchanged. The patient has not experienced similar symptoms in the past. Historical: - Allergies: 05:19 PENICILLINS; bb - Home Meds: 05:19 Allopurinol Oral [Active]; Lasix Oral [Active]; losartan Oral [Active]; bb - PMHx: 05:19 AAA; Cellulitis; CHF; COPD; Hypertensive disorder; Myocardial infarction; bb - PSHx: 05:19 Appendectomy; Coronary artery bypass graft; Tonsillectomy; bb - Immunization history:: Pfizer x 4. - Social history:: Smoking status: Patient denies any tobacco usage or history of. - Family history:: not pertinent. ROS: 06:24 Constitutional: Negative for fever, chills, and weight loss, Eyes: Negative for injury, kirti pain, redness, and discharge, ENT: Negative for injury, pain, and discharge, Neck: Negative for injury, pain, and swelling, Respiratory: Negative for shortness of breath, cough, wheezing, and pleuritic chest pain, Abdomen/GI: Negative for abdominal pain, nausea, vomiting, diarrhea, and constipation, Back: Negative for injury and pain, : Negative for injury, bleeding, discharge, and swelling, MS/Extremity: Negative for injury and deformity, Skin: Negative for injury, rash, and discoloration, Neuro: Negative for headache, weakness, numbness, tingling, and seizure, Psych: Negative for depression, anxiety, suicide ideation, homicidal ideation, and hallucinations, Allergy/Immunology: Negative for hives, rash, and allergies, Endocrine: Negative for neck swelling, polydipsia, polyuria, polyphagia, and marked weight changes, Hematologic/Lymphatic: Negative for swollen nodes, abnormal bleeding, and unusual bruising. 06:24 Cardiovascular: Positive for chest pain, of the chest. Exam: 06:24 Constitutional: This is a well developed, well nourished patient who is awake, alert, kirti and in no acute distress. Head/Face: Normocephalic, atraumatic. Eyes: Pupils equal round and reactive to light, extra-ocular motions intact. Lids and lashes normal. Conjunctiva and sclera are non-icteric and not injected. Cornea within normal limits. Periorbital areas with no swelling, redness, or edema. ENT: Nares patent. No nasal discharge, no septal abnormalities noted. Tympanic membranes are normal and external auditory canals are clear. Oropharynx with no redness, swelling, or masses, exudates, or evidence of obstruction, uvula midline. Mucous membranes moist. Neck: Trachea midline, no thyromegaly or masses palpated, and no cervical lymphadenopathy. Supple, full range of motion without nuchal rigidity, or vertebral point tenderness. No Meningismus. Chest/axilla: Normal chest wall appearance and motion. Nontender with no deformity. No lesions are appreciated. Cardiovascular: Regular rate and rhythm with a normal S1 and S2. No gallops, murmurs, or rubs. Normal PMI, no JVD. No pulse deficits. Respiratory: Lungs have equal breath sounds bilaterally, clear to auscultation and percussion. No rales, rhonchi or wheezes noted. No increased work of breathing, no retractions or nasal flaring. Abdomen/GI: Soft, non-tender, with normal bowel sounds. No distension or tympany. No guarding or rebound. No evidence of tenderness throughout. Back: No spinal tenderness. No costovertebral tenderness. Full range of motion. Male : Normal genitalia with no discharge or lesions. Skin: Warm, dry with normal turgor. Normal color with no rashes, no lesions, and no evidence of cellulitis. 06:24 ECG was reviewed by the Attending Physician. Vital Signs: 05:17 BP 136 / 66; Pulse 61; Resp 16 S; Temp 97.9(O); Pulse Ox 100% on R/A; Weight 81.65 kg bb (R); Height 5 ft. 8 in. (172.72 cm) (R); Pain 0/10; 05:17 Body Mass Index 27.37 (81.65 kg, 172.72 cm) bb MDM: 05:31 Patient medically screened. kirti 06:27 Differential diagnosis: abnormal EKG, acute pericarditis, anxiety, Cholelithiasis kirti costochondritis, esophagitis, gastroesophageal reflux disease (GERD), hiatal hernia, pancreatitis, peptic ulcer disease, pneumonia, stable angina, thoracic aortic disection, unstable angina. HEART Score: History: Slightly Suspicious (0), ECG: Age: > or = 65 years (2), Risk Factors: > or = 3 Risk factors for atherosclerotic disease (2), [Hypercholesterolemia] [Hypertension] [+ Family HX] [Obesity] Troponin: < or = 1 x Normal Limit (0). The patient was given aspirin in the Emergency Department. The patient's deep vein thrombosis risk score was calculated as follows: Total Score: 0. This patient was found to be at low risk for a deep vein thrombosis by using the Well's assessment criteria. The patient's pulmonary embolism risk score was calculated as follows: Total Score: 0-2 points. This patient was found to be at low risk for a pulmonary embolism by using the Well's assessment criteria. PEGGY Risk Score: 1 - patient's age is greater or equal to 65 years, 1 - Three or more CAD risk factors, 1- Known CAD, 1 - Recent [<24hrs] Severe Angina, TOTAL SCORE = 4. Data reviewed: vital signs, nurses notes, lab test result(s), EKG, radiologic studies, CT scan, plain films. 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 on room air is 100 %. Test interpretation: by ED physician or midlevel provider: ECG, plain radiologic studies. Counseling: I had a detailed discussion with the patient and/or guardian regarding: the historical points, exam findings, and any diagnostic results supporting the discharge/admit diagnosis, lab results, radiology results, the need for further work-up and treatment in the hospital. ED course: DR BAVARE IF CT NEG , KEEP HERE. 09/17 05:32 Order name: Basic Metabolic Panel; Complete Time: 06:36 [facility] 09/17 05:32 Order name: CBC with Diff; Complete Time: 06:19 [facility] 09/17 05:32 Order name: LFT's; Complete Time: 06:36 [facility] 09/17 05:32 Order name: Magnesium; Complete Time: 06:36 [facility] 09/17 05:32 Order name: NT PRO-BNP; Complete Time: 06:36 [facility] 09/17 05:32 Order name: PT-INR; Complete Time: 06:19 [facility] 09/17 05:32 Order name: Troponin HS; Complete Time: 06:36 [facility] 09/17 05:32 Order name: XRAY Chest (1 view) [facility] 09/17 05:32 Order name: SARS RAPID; Complete Time: 06:19 [facility] 09/17 05:32 Order name: Lipase; Complete Time: 06:36 [facility] 09/17 06:23 Order name: CT Aorta for Dissection [facility] 09/17 08:42 Order name: Urine Dipstick-Ancillary EDMD 09/17 05:32 Order name: EKG; Complete Time: 05:33 [facility] 09/17 05:32 Order name: Cardiac monitoring; Complete Time: 05:33 [facility] 09/17 05:32 Order name: EKG - Nurse/Tech; Complete Time: 05:33 [facility] 09/17 05:32 Order name: IV Saline Lock; Complete Time: 05:55 [facility] 09/17 05:32 Order name: Labs collected and sent; Complete Time: 05:33 [facility] 09/17 05:32 Order name: O2 Per Protocol; Complete Time: 05:33 [facility] 09/17 05:32 Order name: O2 Sat Monitoring; Complete Time: 05:33 [facility] 09/17 05:32 Order name: Urine Dipstick-Ancillary (obtain specimen); Complete Time: 08:41 [facility] 09/17 07:18 Order name: CONS Physician Consult EDMS EC:24 Rate is 60 beats/min. Rhythm is regular. QRS [place] is Normal. GA interval is normal. QRS kirti interval is normal. QT interval is normal. No Q waves. T waves are Normal. No ST changes noted. Clinical impression: Abnormal EKG without significant change. Interpreted by me. Reviewed by me. Administered Medications: 05:55 Drug: Aspirin 81 mg Route: PO; ll3 06:55 Follow up: Response: No adverse reaction kc6 05:55 Drug: Pepcid (famotidine) 20 mg Route: IVP; Site: right wrist; ll3 06:55 Follow up: Response: No adverse reaction kc6 07:19 Drug: Lopressor (metoprolol TARTRATE) 50 mg Route: PO; kc6 08:19 Follow up: Response: No adverse reaction; Blood sugar is lowered kc6 07:53 CANCELLED (Duplicate Order): Lovenox (enoxaparin) 80 mg Sub-Q once kirti 09:39 Drug: Mucomyst - Acetylcysteine 600 mg Route: PO; kc6 09:46 Follow up: Response: No adverse reaction kc6 Disposition Summary: 09/17/22 07:03 Hospitalization Ordered Hospitalization Status: Observation kirti Provider: Yvan Gibson cha Location: Telemetry/MedSurg (observation) kirti Condition: Stable kirti Problem: new kirti Symptoms: have improved kirti Bed/Room Type: Standard [facility] Room Assignment: 410(09/17/22 09:38) ja1 Diagnosis - Thoracic aortic aneurysm, without rupture kirti - Chest pain, unspecified kirti - Unspecified kidney failure - acute on chronic kirti Forms: - Medication Reconciliation Form kirti - SBAR form kirti Signatures: Dispatcher [employer] EDMelchor Neville MD MD cha Ballard, Brenda RN RN Flakito Cox RN RN ja1 Uriel Arteaga RN RN ll3 Tiffany Read RN RN kc6 Corrections: (The following items were deleted from the chart) 07:53 07:53 Lovenox (enoxaparin) 80 mg Sub-Q once ordered. kirti kirti 09:38 07:03 kirti ja1
[2022-09-17] MEDS ORDERED: METOPROLOL TAR 50 MG TAB ONE (07:18)
--- NOTE | 2022-09-17 08:01 | RAD REPORT ---
EXAM DESCRIPTION: CT - Angio Aorta For Dissection - 09/17/2022 7:16 am CLINICAL HISTORY: . Chest and abd pain COMPARISON: August 2022 TECHNIQUE: Computed tomography angiography of the chest, abdomen pelvis were obtained. 100 cc Isovue 370 was administered intravenously. Coronal and sagittal reconstruction were performed. MIP 3D reconstruction was performed All CT scans are performed using dose optimization technique as appropriate and may include automated exposure control or mA/KV adjustment according to patient size. FINDINGS: An aortic dissection is not seen. A aneurysm involves the mid to distal descending thoracic aorta with an AP diameter of 5.5 centimeter s. It contains moderate thrombus. It is without significant change prior exam Abdominal aortic aneurysm AP diameter 3.3 centimeters at the takeoff of the renal arteries. It contai ns small amount thrombus. Patent stent left external iliac artery. Moderate grade stenosis right external iliac artery. The celiac, SMA and FAWAD are patent . A lung consolidation is not present. A pericardial effusion is not seen. A pleural effusion is not no fl[place]. Cholelithiasis. Gallbladder wall not thickened. The liver,spleen, pancreas,adrenals and kidneys demonstrate no significant abnormality. There no evidence diverticulitis. Moderate to large inguinal hernias contain fat. Spondylosis lower thoracic/lumbar spine IMPRESSION: 5.5 centimeter aneurysm descending thoracic aorta 3.3 centimeter aneurysm abdominal aorta.
[2022-09-17 08:41] LABS: Urine Blood Negative (Negative); Urine Glucose Negative (Negative); Urine Protein Negative (Negative); Urine Specific Gravity 1.015 (1.005-1.030)
[2022-09-17 08:55] VITALS: BMI 27.0
[2022-09-17] MEDS ORDERED: ACETYLCYST 20% 800 MG/4 ML VIAL PO ONE (09:00)
--- NOTE | 2022-09-17 09:50 | P.SSS ---
Patient History Date of Service: 09/17/22 Primary Care Provider: Arthur Reason for admission: Chest pain History of Present Illness: Patient came to the ER. With complaints of chest pain. The patient was having 1 minute of substernal chest pain. He took an NTG and the pain resolved. He had a recent visit for chest pain. The patient was found to have an increase in his descending thoracic aortic aneurism. Still below 6cm so not emergent. The patient was concerned about this. He does have follow up with Cardiology and with Dr. Herbert. ER spoke with CT surgery. Stated he only needs observation Allergies Penicillins Allergy (Intermediate, Verified 01/22/19 01:06) Hives Home Medications: Furosemide [Lasix*] 20 mg PO DAILY 11/15/13 Metoprolol Succinate [Toprol Xl*] 50 mg PO DAILY 11/15/13 Atorvastatin Calcium [Lipitor] 80 mg PO DAILY 05/04/17 Omeprazole 20 mg PO DAILY 07/26/18 Ipratropium/Albuterol Sulfate [Iprat-Albut 0.5-3(2.5) mg/3 ml] 1 amp IH Q3H PRN 01/22/19 allopurinoL [Zyloprim*] 100 mg PO BID 01/22/19 Diphenhydramine HCl [Benadryl Allergy] 25 mg PO PRN 08/05/22 Finasteride 5 mg PO DAILY 08/05/22 Lubiprostone 24 mcg PO BID 08/05/22 Nitroglycerin [Nitrostat*] 0.4 mg PO PRN PRN 08/05/22 Tamsulosin [Flomax*] 0.4 mg PO DAILY 08/05/22 Fluticasone/Umeclidin/Vilanter [Trelegy Ellipta 100-62.5-25] 1 inh IH DAILY 09/07/22 Furosemide [Lasix] 40 mg PO DAILY 30 Days #30 tab 09/08/22 - Past Medical/Surgical History Diabetic: No -: CHF -: COPD -: PACEMAKER -: BPH -: CHRONIC CONSTIPATION -: AAA -: CAD -: High Cholesterol -: M.I. x 3 -: neuropathy -: AAA -: L elbow bursectomy, AAA resection -: tonsillectomy -: umbilectomy -: upper blephroplasty -: cardiac triple bypass -: hemorrhoidectomy -: polyp removal, MIX3, umbilical hernia repair, -: apendectomy - Family History Father -: Lung disease, Cancer Notes: LUNG DISEASE Mother Notes: AAA Sister Notes: NO HISTORY - Social History Alcohol use: Yes CD- Drugs: No Caffeine use: Yes Review of Systems 10-point ROS is otherwise unremarkable Cardiovascular: Chest Pain Physical Examination - Physical Exam General: Alert, In no apparent distress HEENT: Atraumatic, PERRLA, Mucous membr. moist/pink, EOMI, Sclerae nonicteric Neck: Supple, 2+ carotid pulse no bruit, No LAD, Without JVD or thyroid abnormality Respiratory: Clear to auscultation bilaterally, Normal air movement Cardiovascular: Regular rate/rhythm, Normal S1 S2 Gastrointestinal: Normal bowel sounds, No tenderness Musculoskeletal: No tenderness Integumentary: No rashes Neurological: Normal gait, Normal speech, Normal strength at 5/5 x4 extr, Normal tone, Normal affect Lymphatics: No axilla or inguinal lymphadenopathy - Studies Laboratory Data (last 24 hrs) 09/17/22 05:47: PT 11.1, INR 1.01 09/17/22 05:47: WBC 6.50, Hgb 12.5 L, Hct 37.2 L, Plt Count 204 09/17/22 05:47: Sodium 139, Potassium 4.0, BUN 29 H, Creatinine 1.68 H, Glucose 101, Magnesium 2.1, Total Bilirubin 0.6, AST 18, ALT 27, Alkaline Phosphatase 107, Lipase 264 - Diagnosis (Problem(s)) (1) Chest pain Current Visit: Yes Status: Acute Plan: Will have the patient seen by Dr. Herbert. If no objections. We can discharge him and have him follow up as an outpatient Qualifiers: Ischemic chest pain type: unspecified angina pectoris type (2) Thoracic aortic aneurysm without rupture Current Visit: Yes Status: Chronic Plan: Needs follow up. Not above 6cm. No specific changes via the inital report. Qualifiers: Thoracic aorta location: descending thoracic aorta Qualified Code(s): I71.23 - Aneurysm of the descending thoracic aorta, without rupture (3) HTN (hypertension) Current Visit: No Status: Acute Plan: stable. Can restart his home medications. 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
[2022-09-17] MEDS ORDERED: NA CHLORIDE 0.9% 500 ML IV ONE (10:22)
[2022-09-17] MEDS ORDERED: SACUBITRIL/VALSARTAN 24/26 MG TAB PO SCH (10:22)
[2022-09-17] MEDS ORDERED: ACETAMINOPHEN 325 MG TABLET PO PRN (10:22)
[2022-09-17] MEDS ORDERED: ONDANSETRON 4 MG/2 ML VIAL IV PRN (10:22)
[2022-09-17] MEDS ORDERED: ASPIRIN EC 81 MG TAB PO SCH (10:22)
[2022-09-17] MEDS ORDERED: MORPHINE 4 MG/ML SYR IV PRN (10:22)
--- NOTE | 2022-09-17 10:59 | RAD REPORT ---
EXAM DESCRIPTION: RAD - Chest Single View - 09/17/2022 5:43 am CLINICAL HISTORY: 82 years Male, CHEST PAIN COMPARISON: Chest x-ray and chest CT performed on 09/06/2022 TECHNIQUE: Single portable x-ray view of the chest performed on 09/17/2022 at 5:39 AM FINDINGS: The lungs are well expanded and are grossly clear. There is minimal scarring in the lung b ases. There is no evidence of a pneumothorax. The cardiac silhouette is normal in size and configuration. There are remote postsurgical changes of the mediastinum. There is stable tortuosity of the descending thoracic aorta and there is a known ane urysm of the descending thoracic aorta. The mediastinal contours are stable. No acute osseous abnormality is identified. No acute soft tissue abnormalities are seen. Lines and tubes: There is a stable left subclavian multilead AICD. Free air: None IMPRESSION: 1. No definite acute intrathoracic disease or significant change when compared to the prior study. 2. Minimal scarring in the lung bases. 3. Remote median sternotomy. 4. Stable tortuosity of the descending thoracic aorta and known aneurysm of the descending thoracic aorta. Electronically signed by: Shantelle Mcnair DO 09/17/2022 6:21 AM INTELLIGENCE RESEARCH SPECIALIST Due to temporary technical issues with the PACS/Fluency reporting system, reports are being signed by the in house radiologists without review as a courtesy to insure prompt reporting. The interpreting radiologist is fully responsible for the content of the report.
[2022-09-17 12:28] VITALS: BP 125/68; TEMP 97.2
[2022-09-17 13:03] VITALS: O2SAT 100
== END 2022-09-17 13:09 | disposition home or self-care (01) ==
LOC: ER 05:13 → ERHOLD 07:08 → 4TH 09:56
PROVIDERS: ADMIT Internal Medicine; ATTEND Internal Medicine
DX: R07.9 Chest pain, unspecified (principal); I71.23 Aneurysm of the descending thoracic aorta, without rupture; I10 Essential (primary) hypertension; I12.9 Hypertensive chronic kidney disease with stage 1 through stage 4 chronic kidney disease, or unspecified chronic kidney disease; N18.2 Chronic kidney disease, stage 2 (mild); Z20.822 Contact with and (suspected) exposure to COVID-19; Z88.0 Allergy status to penicillin; E78.00 Pure hypercholesterolemia, unspecified; I25.2 Old myocardial infarction; Z95.0 Presence of cardiac pacemaker; G62.9 Polyneuropathy, unspecified
CPT/HCPCS: 93005; 85025; 80048; 36415; 83735; 85610; 80076; 81003; 84484 ×2; 83690; 83880; 71275; 74175; 71045; 87811; Q9967; J7608; G0378